=== PATIENT | female | born 1995 | race Caucasian/White ===

== ENCOUNTER 2019-12-27 20:41 | Emergency (ER) | payer OTHER, SELFPAY ==
--- NOTE | ~2019-12-27 | CT_ITS ---
EXAMINATION: CT soft tissue neck w con DATE: 12/27/2019 23:05 INDICATION: Facial swelling. TECHNIQUE: Computed tomography (CT) of the neck was performed with 75 mL Omnipaque-350 intravenous co ntrast. Automated exposure control and iterative reconstruction technique were employed. The dose-león gth product was 262.14 mGy-cm. COMPARISON: None FINDINGS: There is bilateral high internal jugular chain lymphadenopathy. For example, the right jugu lodigastric node measures 2.1 x 1.6 cm. The palatine tonsils are enlarged. The paranasal sinuses are clear. The mastoid air cells are normal. There are carious lesions of tooth 2 and tooth 15. Tooth 5 i s broken. IMPRESSION: 1. Enlarged palatine tonsils. No abscess. 2. Dental disease. 3. Mild bilateral cervical lymphadenopathy, likely reactive. Reviewed, dictated and finalized at location A.
[2019-12-27 20:43] VITALS: BP 123/90; PULSE 138; RESP 20; TEMP 37.2; O2SAT 99
--- NOTE | 2019-12-27 21:13 | ED.GENADULT ---
HPI - General Adult General Chief complaint: Unspecified Stated complaint: FEVER, FACIAL SWELLING Time Seen by Provider: 12/27/19 20:55 History of Present Illness HPI narrative: SOre throat for the past 5 days. Difficulty swallowing and talking. Associated with fever. No SOB. She tested negative for strep, but was started on amoxicillin a few days ago. Symptoms have not improved now she reports swelling around molars on the right and tender lymph nodes around the right breast. Related Data Home Medications Medication Instructions Recorded Confirmed amoxicillin 12/27/19 12/27/19 Allergies Allergy/AdvReac Type Severity Reaction Status Date / Time No Known Allergies Allergy Verified 12/27/19 20:42 Review of Systems Review of Systems: All systems reviewed & are unremarkable except as noted in HPI and below Constitutional: Constitutional: Reports chills and Reports fever(s) ENT: Reports dysphagia and Reports sore throat Cardiovascular: Cardiovascular: Denies chest pain Respiratory: Respiratory: Denies dyspnea Gastrointestinal: Gastrointestinal: Denies abdominal pain, Denies nausea and Denies vomiting Musculoskeletal: Musculoskeletal: Denies back pain Exam Const: General: healthy appearing, no acute distress and alert Orientation/consciousness: patient oriented x3 HENMT: Teeth and gingiva: abnormal tooth and associated gingiva (mild swelling around lower molars on the right.) Other: Enlarged tonsils bilaterally with exudates. uvula midline. Neck: Neck: normal visual inspection and no lymphadenopathy Chest: Chest palpation & inspection: no tenderness Resp: Effort & Inspection: normal respiratory effort Auscultation: clear to auscultation bilaterally, no rales, no rhonchi and no wheezes Cardio: Jugular venous distension: no JVD Rate: regular rate Rhythm: regular rhythm Heart sounds: no murmurs GI: Inspection: non-distended GI Palp: Yes Soft to palpation and No Tenderness to palpation present (GI) Skin: General skin exam: normal color Neuro: General: patient oriented x3 and moves all extremities Speech: normal speech Extrem: General: no edema Psych: Appearance: well kempt Affect: normal affect Course Vital Signs Vital signs: Vital Signs Temperature 37.2 C 12/27/19 20:43 Pulse Rate 138 H 12/27/19 20:43 Respiratory Rate 20 12/27/19 20:43 Blood Pressure 123/90 12/27/19 20:43 Pulse Oximetry 99 12/27/19 20:43 Temperature 36.8 C 12/28/19 00:19 Pulse Rate 102 H 12/28/19 00:19 Respiratory Rate 12 12/28/19 00:19 Blood Pressure 115/83 12/28/19 00:19 Pulse Oximetry 96 12/28/19 00:19 Medical Decision Making MDM Narrative Medical decision making narrative: 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 She is feeling better. Medical Records Medical records reviewed: Yes I reviewed the patient's medical records. Vital Signs Vital Signs: Vital Signs Temperature 37.2 C 12/27/19 20:43 Pulse Rate 138 H 12/27/19 20:43 Respiratory Rate 20 12/27/19 20:43 Blood Pressure 123/90 12/27/19 20:43 Pulse Oximetry 99 12/27/19 20:43 Temperature 36.8 C 12/28/19 00:19 Pulse Rate 102 H 12/28/19 00:19 Respiratory Rate 12 12/28/19 00:19 Blood Pressure 115/83 12/28/19 00:19 Pulse Oximetry 96 12/28/19 00:19 Lab Data Lab results reviewed: Yes I reviewed the patient's lab results. Result diagrams: 12/27/19 22:08 12/27/19 22:08 Labs: Lab Results 12/27/19 12/27/19 12/27/19 Range/Units 22:08 22:08 22:08 WBC 7.5 (4.5-10.0) K/mm3 RBC 4.67 (4.2-5.4) M/mm3 Hgb 14.2 (12.0-15.0) g/dL Hct 41.7 (37.0-47.0) % MCV 89.3 (80-100) fl MCH 30.4 (26-34) pg MCHC 34.1 (32-36) g/dl RDW 12.5 (11.5-14.5) % Plt Count 231 (150-375) k/mm3 MPV 11.2 H (7.4-10.4) fl Immature Gran % (Auto) 0.3 (0-0.5) % Neut % (Auto) 63.4 (45.5-73.1) % Lymph % (Auto) 21.7 (18.3-44.2) % [place] % (
[2019-12-27] MEDS: KETOROLAC 30 MG/ML VIAL (*BKC) IV PUSH (22:14)
[2019-12-27] MEDS: SODIUM CHLORIDE 0.9% IV 1,000 ML 999 ML IV CONT (22:14)
[2019-12-27 22:22] LABS: Basophils Percent Auto 0.4 % (0.2-1.2); Eosinophils Percent Auto 0.1 % (0-4.4); Hematocrit 41.7 % (37.0-47.0); Hemoglobin 14.2 g/dL (12.0-15.0); Immature Granulocyte Absolute 0.02 K/mm3 (0.00-0.031); Immature Granulocyte Percent A 0.3 % (0-0.5); Lymphocytes Absolute Auto 1.62 K/mm3 (0.9-3.2); Lymphocytes Percent Auto 21.7 % (18.3-44.2); Mean Corpuscular HGB Conc 34.1 g/dl (32-36); Mean Corpuscular Hemoglobin 30.4 pg (26-34); Mean Corpuscular Volume 89.3 fl (80-100); Mean Platelet Volume 11.2 fl (7.4-10.4); Monocytes Absolute Auto 1.1 K/mm3 (0.1-0.6); Monocytes Percent Auto 14.1 % (2.6-8.5); Neutrophils Absolute Auto 4.7 K/mm3 (1.3-6.7); Neutrophils Percent Auto 63.4 % (45.5-73.1); Platelet Count Result 231 k/mm3 (150-375); Red Blood Count 4.67 M/mm3 (4.2-5.4); Red Cell Distribution Width 12.5 % (11.5-14.5); White Blood Count 7.5 K/mm3 (4.5-10.0)
[2019-12-27 22:27] LABS: Blood Urea Nitrogen 10 mg/dL (7-17); Calcium 9.4 mg/dL (8.4-10.2); Carbon Dioxide 24 mmol/L (22-30); Chloride 104 mmol/L (98-107); Estimated CRCL calculation 101 ml/min; Estimated Glomerular Filt Rate > 60; Glucose 88 mg/dL (65-105); Potassium 4.3 mmol/L (3.4-5.0); Sodium 137 mmol/L (137-145)
[2019-12-27] MEDS: AMPICILLIN SODIUM/SULBACTAM 3 GM in SODIUM CHLORIDE 0.9% IV 100 ML IVPB (22:43)
[2019-12-27 22:48] LABS: Monoscreen Negative (Negative); Negative Monotest Control Negative (Negative); Positive Monotest Control Positive (Positive)
[2019-12-28 00:19] VITALS: BP 115/83; PULSE 102; RESP 12; TEMP 36.8; O2SAT 96
== END 2019-12-28 00:52 | disposition home or self-care (01) ==
PROVIDERS: Emergency Provider Emergency Medicine
DX: J02.9 Acute pharyngitis, unspecified (principal)
CPT/HCPCS: 36415; 70491; 80048; 81025; 85025; 86308; 87081; 87880; 96365; 96375; 99284; A9270; J0295; J1100; J1885; J7030; Q9967

== ENCOUNTER 2021-10-02 09:56 | Emergency (ER) | payer OTHER, SELFPAY ==
--- NOTE | ~2021-10-02 | US_ITS ---
EXAMINATION: US OB <=14 wk fetus w TV DATE: 10/02/2021 11:49 INDICATION: Pelvic pain during first trimester TECHNIQUE: Real-time pelvic transabdominal and transvaginal ultrasound was performed. COMPARISON: None. FINDINGS: The uterus measures 7.5 x 5.7 x 3.7 cm. No intrauterine gestational sac is identified. The endometrial thickness measures 9 mm. The right ovary measures 2.1 x 1.9 x 1.4 cm. The left ovary filomena sures 2.4 x 1.2 x 1.9 cm. There is normal vascular flow in the ovaries. There is no free fluid in the pelvis. IMPRESSION: 1. of unknown location. Although no intrauterine gestational sac is seen, this may be due t o early gestation. If the patient is clinically stable, recommend followup with serial beta-hCG and u ltrasound. Reviewed, dictated and finalized at location B. IMPRESSION: 1. of unknown location. Although no intrauterine gestational sac is s een, this may be due to early gestation. If the patient is clinically stable, r ecommend followup with serial beta-hCG and ultrasound.
[2021-10-02 10:04] VITALS: BP 118/80; PULSE 84; RESP 16; TEMP 36.4; O2SAT 96
[2021-10-02 11:10] LABS: Basophils Percent Auto 0.3 % (0.2-1.2); Eosinophils Absolute Auto 0.1 K/mm3 (0-0.3); Eosinophils Percent Auto 0.7 % (0-4.4); Hematocrit 42.2 % (37.0-47.0); Hemoglobin 13.9 g/dL (12.0-15.0); Immature Granulocyte Absolute 0.03 K/mm3 (0.00-0.031); Immature Granulocyte Percent A 0.3 % (0-0.5); Lymphocytes Absolute Auto 2.11 K/mm3 (0.9-3.2); Lymphocytes Percent Auto 22.2 % (18.3-44.2); Mean Corpuscular HGB Conc 32.9 g/dl (32-36); Mean Corpuscular Hemoglobin 30.4 pg (26-34); Mean Corpuscular Volume 92.3 fl (80-100); Mean Platelet Volume 10.8 fl (7.4-10.4); Monocytes Absolute Auto 0.8 K/mm3 (0.1-0.6); Monocytes Percent Auto 8.1 % (2.6-8.5); Neutrophils Absolute Auto 6.5 K/mm3 (1.3-6.7); Neutrophils Percent Auto 68.4 % (45.5-73.1); Platelet Count Result 332 k/mm3 (150-375); Red Blood Count 4.57 M/mm3 (4.2-5.4); Red Cell Distribution Width 12.5 % (11.5-14.5); White Blood Count 9.5 K/mm3 (4.5-10.0)
[2021-10-02 11:19] LABS: Add Urine Microscopic? YES; Appearance Urine Cloudy (Clear); Bacteria Urine Trace /hpf; Bilirubin Urine Negative (Negative); Blood Urine 2+ (Negative); Color Urine Red (Yellow); Glucose Urine UA Negative (Negative); Ketones Urine Negative (Negative); Leukocyte Esterase Ur 2+ LEU/UL (Negative); Nitrate Urine Negative (Negative); Protein Urine 2+ mg/dL (Negative); RBC Urine 21-50 /hpf (0-2); Squamous Epithelial Cell Urine Moderate /hpf (Few); Urobilinogen Urine Negative mg/dL (<2.0); WBC Urine 31-50 /hpf
[2021-10-02 11:26] LABS: Specific Grav Ur 1.002 (1.001-1.035)
[2021-10-02 11:33] LABS: Beta HCG Quantitative 4.36 mIU/ML
--- NOTE | 2021-10-02 11:37 | PC.NURSE ---
pt. to ct
[2021-10-02 11:47] VITALS: BP 123/67; PULSE 61; RESP 14; O2SAT 100
--- NOTE | 2021-10-02 12:57 | ED.FEMALEGU ---
HPI - Female Genitourinary General Chief complaint: Vaginal Bleeding Stated complaint: vag bld, 5 weeks Time Seen by Provider: 10/02/21 11:17 Source: patient History of Present Illness HPI Narrative: Patient presents with vaginal bleeding. Patient is G2, P1 approximately 5 weeks by LMP. She had some spotting yesterday with some mild cramping today she was passing large blood clots and was having a lot of pelvic pain. She was concerned so she came to the ER for evaluation. Denies any lightheadedness or dizziness denies any chest pain or shortness of breath denies any nausea or vomiting Related Data Home Medications Medication Instructions Recorded Confirmed amoxicillin 12/27/19 12/27/19 Allergies Allergy/AdvReac Type Severity Reaction Status Date / Time No Known Allergies Allergy Verified 10/02/21 11:50 Review of Systems Review of Systems: CONSTITUTIONAL: Denies fever, chills, or sweats. EYES: Denies visual changes, redness, or discharge. ENT: Denies rhinorrhea, congestion, sore throat, or otalgia. CARDIOVASCULAR: Denies chest pain, palpitations, or edema. RESPIRATORY: Denies cough or dyspnea. GASTROINTESTINAL: Denies nausea, vomiting, or diarrhea. GENITOURINARY: Denies dysuria or hematuria. SKIN: Denies rash or itching. MUSCULOSKELETAL: Denies back pain, joint pain, or myalgia. NEUROLOGIC: Denies headache, numbness, dizziness, or weakness. PSYCHIATRIC: Denies anxiety or depression. All systems reviewed & are unremarkable except as noted in HPI and below Exam Narrative: GENERAL: Well-appearing, well-nourished, and in no acute distress. HEAD: Normocephalic, atraumatic. EYES: PERRLA and EOMI. ENT: Nares clear, no rhinorrhea or epistaxis. Mucous membranes moist. NECK: Supple. No masses. No JVD ABDOMEN: Soft, nontender, nondistended, normal active bowel sounds. EXTREMITIES: Normal range of motion. No edema. SKIN: Warm, dry, no rash. NEURO: No focal deficits. Alert and oriented x3. PSYCH: Normal mood and affect. Course Reevaluation(s) Reevaluation #1: Patient resting company results plan reviewed with patient. Patient comfortable outpatient plan. Date: 10/02/21 Time: 12:58 Vital Signs Vital signs: Vital Signs Temperature 36.4 C 10/02/21 10:04 Pulse Rate 84 10/02/21 10:04 Respiratory Rate 16 10/02/21 10:04 Blood Pressure 118/80 10/02/21 10:04 Pulse Oximetry 96 10/02/21 10:04 Temperature 36.4 C 10/02/21 10:04 Pulse Rate 88 10/02/21 13:10 Respiratory Rate 16 10/02/21 13:10 Blood Pressure 112/76 10/02/21 13:10 Pulse Oximetry 99 10/02/21 13:10 MDM - Female Genitourinary MDM Narrative Medical decision making narrative: H&P as above, vss, pt looks clinically well, exam reassuring labs with Rh+ and low hCG, img with of indeterminate location, additional labs/img considered, symptomatic relief available as needed, on reevaluation pt continues to looks clinically well. Suspect miscarriage, there is local concern for ectopic , hemorrhage severe sepsis. plan to tx/monitor as op w/ pcm f/u findings/plan discussed with pt, pt agree/comfortable with plan, return precautions given Lab Data Result diagrams: 10/02/21 10:56 Labs: Lab Results 10/02/21 10/02/21 10/02/21 Range/Units 10:56 10:56 10:56 WBC 9.5 (4.5-10.0) K/mm3 RBC 4.57 (4.2-5.4) M/mm3 Hgb 13.9 (12.0-15.0) g/dL Hct 42.2 (37.0-47.0) % MCV 92.3 (80-100) fl MCH 30.4 (26-34) pg MCHC 32.9 (32-36) g/dl RDW 12.5 (11.5-14.5) % Plt Count 332 (150-375) k/mm3 MPV 10.8 H (7.4-10.4) fl Immature Gran % (Auto) 0.3 (0-0.5) % Neut % (Auto) 68.4 (45.5-73.1) % Lymph % (Auto) 22.2 (18.3-44.2) % Door % (Auto) 8.1 (2.6-8.5) % Eos % (Auto) 0.7 (0-4.4) % Baso % (Auto) 0.3 (0.2-1.2) % Lymph # (Auto) 2.11 (0.9-3.2) K/mm3 Door # (Auto) 0.8 H (0.1-0.6) K/mm3 Eos # (Auto) 0.1 (0-0.3) K/mm3 Baso # (Aut
[2021-10-02 13:10] VITALS: BP 112/76; PULSE 88; RESP 16; O2SAT 99
== END 2021-10-02 13:10 | disposition home or self-care (01) ==
PROVIDERS: Emergency Provider Emergency Medicine
DX: O03.9 Complete or unspecified spontaneous abortion without complication (principal); N39.0 Urinary tract infection, site not specified
CPT/HCPCS: 36415; 76801; 76817; 81001; 84702; 85025; 85461; 87086; 99284

== ENCOUNTER 2021-12-02 16:56 | Emergency (ER) | payer OTHER, SELFPAY ==
--- NOTE | ~2021-12-02 | CT_ITS ---
EXAMINATION: CT brain wo con DATE: 12/02/2021 19:00 INDICATION: seizure-like activity tonight . TECHNIQUE: Computed tomography (CT) of the head was performed without intravenous contrast. The mA wa s adjusted according to patient size. Iterative reconstruction technique was employed. The dose-lengt h product was 529.67 mGy-cm. COMPARISON: 01/16/2018 FINDINGS: No acute intracranial hemorrhage or extra-axial fluid collection. No hydrocephalus, mass, or herniation. No acute ischemic infarct. Unremarkable dural venous sinus attenuation. No acute osseous abnormality. The aerated spaces are clear. IMPRESSION: No acute intracranial process. Reviewed, dictated and finalized at location K.
[2021-12-02 16:56] VITALS: BP 118/64; PULSE 87; RESP 16; TEMP 36.7; O2SAT 98
--- NOTE | 2021-12-02 17:04 | ED.SEIZURE ---
HPI - Seizure General Chief Complaint: Seizure Stated Complaint: seizure Time Seen by Provider: 12/02/21 17:04 Source: patient History of Present Illness HPI Narrative: 26-year-old female with a history of stress-induced seizures, anxiety, with miscarriage 6 weeks ago, recently diagnosed pelvic infection on doxycycline presents to the ER with -- generalized shaking of the body. this happened at work and her colleagues lowered her to the floor. The patient was very stressed out started shaking. She was able to hear people asking her questions but she was unable to answer these questions. According to the people were present the seizures seizure lasted approximately 1 minute. while at work the patient stated that she was going to have a seizure. She was then lowered to the floor when she the generalized shaking for 1 minute which resolved spontaneously. Post shaking the patient did not have any headache or focal neuro deficit. -- Her stress started after she noted a 3 cm swelling over the cervix. -- dyspareunia for the past November 8 months and this has gotten worse over the past 10 days. -- Patient was recently diagnosed to have pelvic inflammation and started on doxycycline. She continued to have symptoms for which her doxycycline was continued for a 2nd round. complaint: possible seizure Onset (ago): minute(s) ( 45 minutes ago) Description of Episode: other ( generalized shaking without any loss of consciousness) Duration of episode: 1 -: minutes(s) Witnessed: Yes - by Bystander Trauma: No Seizure History: Yes Place: work Possible Precipitating Event: other ( Patient got stressed out because of a growth in her cervix) Associated symptoms: denies other symptoms Treatments prior to arrival: none Related Data Allergies Allergy/AdvReac Type Severity Reaction Status Date / Time No Known Allergies Allergy Verified 10/23/21 15:28 Review of Systems Review of Systems: All systems reviewed & are unremarkable except as noted in HPI and below Constitutional: Constitutional: Reports as per HPI, Reports no additional constitutional complaints and Reports weakness Eyes: Eyes: Reports as per HPI and Reports no additional eye complaints ENT: Reports system reviewed and no additional complaints, except as documented and Reports as per HPI Cardiovascular: Cardiovascular: Reports as per HPI and Reports no additional cardiovascular complaints Respiratory: Respiratory: Reports as per HPI and Reports no additional respiratory complaints Gastrointestinal: Gastrointestinal: Reports as per HPI and Reports no additional gastrointestinal complaints Genitourinary: Genitourinary: Reports genital lesions Comments: patient stated that she had a swelling on her cervix she is currently on doxycycline for pelvic inflammation Musculoskeletal: Musculoskeletal: Reports no additional musculoskeletal complaints and Reports muscle cramps Integumentary/Breasts: Skin/Breast: Reports system reviewed and no additional complaints, except as docu and Reports as per HPI Neurologic: Reports system reviewed and no additional complaints, except as documented and Reports as per HPI Psychiatric: Psychiatric: Reports no additional psychiatric complaints and Reports as per HPI Endocrine: Endocrine: Reports no additional endocrine complaints and Reports as per HPI Hematologic/Lymphatic: Hematologic/Lymphatic: Reports no additional hematologic/lymphatic complaints and Reports as per HPI Allergic/Immunologic: Allergic/Immunologic: Reports no additional allergic/immunologic complaints and Reports as per HPI PMFSH Past Medical History Medical History Encounter for biopsy 2011 soft tissue of back--benign Encounter for IUD insertion (07/15/20) Encounter for IUD removal (04/07/21) Manic depression hypertension Seizure Family History Family History (Reviewed 12/02/21 @ 17:31 by Brandan Gregorio
--- NOTE | 2021-12-02 17:19 | ECG_ITS ---
Measurements Intervals [place] Rate: 94 P: 44 MS: 130 QRS: 70 QRSD: 93 T: 50 QT: 345 QTc: 431 Interpretive Statements SINUS RHYTHM WITH SINUS ARRHYTHMIA BASELINE WANDER- V4 NORMAL ECG Electronically Signed On 12-03-2021 8:00:35 CDT by Franck White D.O.
[2021-12-02 17:58] LABS: Basophils Absolute Auto 0.04 K/mm3 (0.00-0.10); Basophils Percent Auto 0.6 % (0.0-1.0); Eosinophils Absolute Auto 0.09 K/mm3 (0.02-0.50); Eosinophils Percent Auto 1.3 % (1.0-6.0); Hematocrit 39.1 % (35.0-49.0); Hemoglobin 13.1 g/dL (12.0-15.0); Immature Granulocyte Absolute 0.01 K/mm3 (0.00-0.00); Immature Granulocyte Percent A 0.1 % (0.0-0.0); Lymphocytes Absolute Auto 2.17 K/mm3 (1.10-4.50); Lymphocytes Percent Auto 31.8 % (18.0-42.0); Mean Corpuscular HGB Conc 33.5 g/dL (32.0-36.0); Mean Corpuscular Hemoglobin 30.6 pg (27.0-31.0); Mean Corpuscular Volume 91.4 fL (78.0-102.0); Mean Platelet Volume 11.4 fl (9.2-11.8); Monocytes Absolute Auto 0.74 K/mm3 (0.10-0.90); Monocytes Percent Auto 10.9 % (2.0-11.0); Neutrophils Absolute Auto 3.8 K/mm3 (1.7-7.2); Neutrophils Percent Auto 55.3 % (50.0-70.0); Platelet Count Result 292 K/mm3 (150-420); Red Blood Count 4.28 M/mm3 (4.20-5.40); White Blood Count 6.8 K/mm3 (4.8-10.8)
[2021-12-02 18:07] LABS: Prothrombin Time 10.9 Seconds (9.50-12.10)
[2021-12-02 18:10] LABS: Add Urine Microscopic? NO; Appearance Urine Clear (Clear); Bilirubin Urine Negative (Negative); Blood Urine Negative (Negative); Color Urine Light Yellow (Yellow); Glucose Urine UA Negative (Negative); Ketones Urine Negative (Negative); Leukocyte Esterase Ur Negative (Negative); Nitrate Urine Negative (Negative); Protein Urine Negative (Negative); Urobilinogen Urine 0.2 mg/dL (0.2-1.0)
[2021-12-02 18:14] LABS: Pregnancy On Board Control Positive; Urine Pregnancy Test Negative
[2021-12-02 18:19] LABS: Alanine Aminotransferase 16 U/L (14-59); Albumin Level 4.1 g/dL (3.4-5.0); Alkaline Phosphatase 68 U/L (46-116); Anion Gap 9 mmol/L (8-16); Aspartate Amino Transferase 14 U/L (15-37); Bilirubin,Total 0.4 mg/dL (0.00-1.00); Blood Urea Nitrogen 9 mg/dL (7-18); Calcium 8.9 mg/dL (8.5-10.1); Carbon Dioxide 25 mmol/L (21-32); Chloride 103 mmol/L (98-108); Estimated CRCL calculation 80 ml/min; Estimated Glomerular Filt Rate > 60; Glucose 93 mg/dL (70-99); Osmolality Calculated 282 mOsm/kg (285-295); Potassium 3.6 mmol/L (3.5-5.1); Sodium 137 mmol/L (136-145); Total Protein 7.9 g/dL (6.4-8.2)
[2021-12-02 18:20] LABS: Amphetamine Screen Urine Negative (Negative); Barbiturate Screen Urine Negative (Negative); Benzodiazepines Screen Urine Negative (Negative); Cannabinoid Screen Urine Negative (Negative); Cocaine Screen Urine Negative (Negative); Methadone Screen Urine Negative (Negative); Opiate Screen Urine Negative (Negative); Phencyclidine Screen Urine Negative (Negative)
[2021-12-02 18:23] LABS: Lipase 123 U/L (73-393); Troponin I 4.2 ng/L (0.00-60.4)
[2021-12-02 19:00] VITALS: BP 121/70; PULSE 68; RESP 20; TEMP 37; O2SAT 96
[2021-12-02 19:29] VITALS: BP 120/72; PULSE 70; RESP 19; TEMP 36.6; O2SAT 98
== END 2021-12-02 19:35 | disposition home or self-care (01) ==
PROVIDERS: Emergency Provider Internal Medicine Critical Care Medicine
DX: R56.9 Unspecified convulsions (principal); F41.9 Anxiety disorder, unspecified; F33.9 Major depressive disorder, recurrent, unspecified; F17.290 Nicotine dependence, other tobacco product, uncomplicated
CPT/HCPCS: 36415; 70450; 80053; 80307; 81003; 81025; 83605; 83690; 84484; 85025; 85610; 93005; 99284

== ENCOUNTER 2021-12-05 00:20 | Emergency (ER) | payer OTHER, SELFPAY ==
--- NOTE | ~2021-12-05 | CT_ITS ---
EXAMINATION: CT abdomen pelvis wo con DATE: 12/05/2021 02:23 INDICATION: Pelvic pain. Abdominal cramping. TECHNIQUE: Computed tomography (CT) of the abdomen and pelvis was performed without intravenous contr ast. Automated exposure control and iterative reconstruction technique were employed. The dose-length product was 181.42 mGy-cm. COMPARISON: CT abdomen and pelvis 05/30/2015 FINDINGS: The visualized portions of the lung bases are clear without pneumonia or pleural effusion. The heart size is normal. No pericardial effusion. The liver is normal. The gallbladder is contracted . The spleen, pancreas, adrenal glands, and kidneys are normal. There is gas in the bladder lumen. Th ere are no dilated loops of bowel. The appendix is not visualized. There are no pathologically enlarg ed lymph nodes. There is no free intraperitoneal fluid. There is mild lumbar spondylosis. IMPRESSION: 1. Gas in the bladder lumen, which may be secondary to recent instrumentation. Reviewed, dictated and finalized at location A.
[2021-12-05 00:21] VITALS: BP 112/72; PULSE 88; RESP 18; TEMP 36.6; O2SAT 99
[2021-12-05 01:27] LABS: Basophils Percent Auto 0.5 % (0.2-1.2); Eosinophils Absolute Auto 0.2 K/mm3 (0-0.3); Hematocrit 37.7 % (37.0-47.0); Hemoglobin 12.7 g/dL (12.0-15.0); Immature Granulocyte Absolute 0.01 K/mm3 (0.00-0.031); Immature Granulocyte Percent A 0.1 % (0-0.5); Lymphocytes Absolute Auto 3.54 K/mm3 (0.9-3.2); Lymphocytes Percent Auto 44.1 % (18.3-44.2); Mean Corpuscular HGB Conc 33.7 g/dl (32-36); Mean Corpuscular Hemoglobin 30.8 pg (26-34); Mean Corpuscular Volume 91.5 fl (80-100); Mean Platelet Volume 11.6 fl (7.4-10.4); Monocytes Percent Auto 12.5 % (2.6-8.5); Neutrophils Absolute Auto 3.3 K/mm3 (1.3-6.7); Neutrophils Percent Auto 40.8 % (45.5-73.1); Platelet Count Result 340 k/mm3 (150-375); Red Blood Count 4.12 M/mm3 (4.2-5.4); Red Cell Distribution Width 12.4 % (11.5-14.5)
[2021-12-05 01:33] LABS: Appearance Urine Slightly Cloudy (Clear); Bilirubin Urine Negative (Negative); Blood Urine Negative (Negative); Glucose Urine UA Negative (Negative); Ketones Urine Negative (Negative); Leukocyte Esterase Ur Negative LEU/UL (Negative); Nitrate Urine Negative (Negative); Protein Urine Negative (Negative); pH Urine 7.5 (5.0-9.0)
[2021-12-05 01:45] LABS: Add Urine Microscopic? NO; Color Urine Light Yellow (Yellow)
[2021-12-05] MEDS: KETOROLAC 30 MG/ML VIAL (*BKC) IM (01:56)
[2021-12-05 02:06] LABS: Amorphous Sediment Urine Few; Bacteria Urine Trace /hpf
--- NOTE | 2021-12-05 02:15 | ED.ABDPAIN ---
HPI - Abdominal Pain General Chief Complaint: Abdominal Pain Stated Complaint: pelvic pain Time Seen by Provider: 12/05/21 00:50 History of Present Illness HPI narrative: Patient is a 26-year-old female here for evaluation of abdominal cramping for the past day. Patient states the pain is severe in nature, and came on after sex today. The pain is present in her lower abdomen and does not radiate. She has not tried any medicaiton for her pain. Denies nausea, vomiting, diarrhea, constipation, fevers, chills. Does report some pain with defecation. 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 Has been treated for pelvic inflammation with 2 courses of doxycycline with only transient relief. Has had negative US in September, per chart review next step is D&C. Related Data Allergies Allergy/AdvReac Type Severity Reaction Status Date / Time No Known Allergies Allergy Verified 12/05/21 00:23 Review of Systems Review of Systems: Gen.: Denies fevers or chills Eyes: Denies eye pain or visual change ENT: Denies congestion Respiratory: Denies shortness of breath or cough CV: Denies chest pain or palpitations GI: Reports abdominal pain. : Reports dyspareunia. denies burning, urgency, frequency or hematuria Musculoskeletal: Denies back pain or muscle pain Neuro: Denies numbness, tingling, weakness or focal weakness Skin: Denies rash Except as documented, all other systems reviewed and negative All systems reviewed & are unremarkable except as noted in HPI and below PMFSH Past Medical History Medical History Encounter for biopsy 2011 soft tissue of back--benign Encounter for IUD insertion (07/15/20) Encounter for IUD removal (04/07/21) Manic depression hypertension Seizure Family History Family History Mother Malignant tumor of cervix Other Malignant tumor of cervix maternal aunt Social History Social History Smoking status: Current every day smoker Tobacco type: e-cigarettes/vaping Alcohol intake: current Alcohol use details: 1 x month Substance use: never Substance use type: does not use Additional living arrangements comments: 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 Head: normocephalic and atraumatic. EYES: PERRLA/EOMI, conjunctivae clear NOSE: No nasal drainage EARS: External ear normal in appearance THROAT: Oropharynx is clear. Mucous membranes are moist. NECK: Supple. No adenopathy, no masses. RESPIRATORY: Airway patent, respirations nonlabored. Clear to auscultation bilaterally, no rales, rhonchi, wheezing. CARDIOVASCULAR: Regular rate and rhythm without murmurs, rubs, or gallops. ABDOMINAL: Mild tenderness in suprapubic region. Normoactive bowel sounds. Soft, nondistended. No rebound tenderness or guarding. MUSCULOSKELETAL: Extremities are warm and well-perfused. Moves all extremities well. No edema. NEURO: Normal speech. No focal neurologic deficits. SKIN: Skin is warm and dry. No rashes. PSYCHIATRIC: Normal affect/mood. Course Vital Signs Vital signs: Vital Signs Temperature 97.9 F 12/05/21 00:21 Pulse Rate 88 12/05/21 00:21 Respiratory Rate 18 12/05/21 00:21 Blood Pressure 112/72 12/05/21 00:21 Pulse Oximetry 99 12/05/21 00:21 Temperature 97.9 F 12/05/21 00:21 Pulse Rate 88 12/05/21 00:21 Respiratory Rate 18 12/05/21 00:21 Blood Pressure 112/72 12/05/21 00:21 Pulse Oximetry 99 12/05/21 00:21 MDM - Abdominal Pain MDM Narrative Medical decision making abdi
[2021-12-05 02:19] LABS: Alanine Aminotransferase 12 U/L (6-35); Albumin Level 4.2 g/dL (3.5-5.1); Alkaline Phosphatase 55 U/L (38-126); Anion Gap 7 mmol/L (8-16); Aspartate Amino Transferase 21 U/L (14-36); Bilirubin,Total 0.4 mg/dL (0.2-1.3); Blood Urea Nitrogen 12 mg/dL (7-17); Calcium 8.8 mg/dL (8.4-10.2); Carbon Dioxide 24 mmol/L (22-30); Chloride 105 mmol/L (98-107); Estimated CRCL calculation 83 ml/min; Estimated Glomerular Filt Rate > 60; Glucose 96 mg/dL (65-110); Lipase 150 U/L (23-300); Potassium 3.9 mmol/L (3.4-5.0); Sodium 136 mmol/L (137-145)
[2021-12-05 02:55] VITALS: BP 120/77; PULSE 72; RESP 18; O2SAT 98
[2021-12-05 02:56] VITALS: BP 92/57; PULSE 69; RESP 18; O2SAT 100
== END 2021-12-05 02:58 | disposition home or self-care (01) ==
PROVIDERS: Emergency Provider Emergency Medicine
DX: N30.00 Acute cystitis without hematuria (principal); F17.290 Nicotine dependence, other tobacco product, uncomplicated
CPT/HCPCS: 36415; 74176; 80053; 81003; 81025; 83690; 85025; 87086; 96372; 99284; J1885

== ENCOUNTER 2022-02-05 17:01 | Outpatient (CLI) | payer OTHER, SELFPAY ==
[2022-02-05 18:18] LABS: Hepatitis B Surface Antigen Negative (Negative); Thyroid Stimulating Hormone Reflex 0.484 uIU/mL (0.465-4.68)
[2022-02-05 18:24] LABS: HAV RESULT Negative (Negative); Hepatitis B Core IgM Result Negative (Negative)
[2022-02-05 18:25] LABS: HIV 1/2 Ab P24 Ag Result Negative (Negative)
[2022-02-05 18:35] LABS: Hepatitis C Virus Antibody Negative (Negative)
[2022-02-06 05:58] LABS: Rapid Plasma Reagin Non-Reactive (NonReactive)
[2022-02-07 20:21] LABS: Progesterone 12.6 ng/mL (***)
== END 2022-02-05 17:02 | disposition home or self-care (01) ==
LOC: ANHLAB 17:05
PROVIDERS: Visit Provider Obstetrics & Gynecology
DX: N92.6 Irregular menstruation, unspecified (principal); Z11.3 Encounter for screening for infections with a predominantly sexual mode of transmission
CPT/HCPCS: 36415; 80074; 84144; 84443; 86592; 86695; 86696; 86703; G0432

== ENCOUNTER 2022-02-10 01:27 | Emergency (ER) | payer OTHER, SELFPAY ==
[2022-02-10 01:31] VITALS: BP 123/57; PULSE 83; RESP 16; TEMP 36.3; O2SAT 100
--- NOTE | 2022-02-10 01:39 | PC.NURSE ---
ED ENERGY ANALYST Keen seeing pt in triage Room 1.
--- NOTE | 2022-02-10 01:46 | ED.SKABFB ---
HPI - Skin/Abscess/Foreign Bdy General Chief complaint: Skin/Abscess/Foreign Body Stated complaint: itchy skin s/p sunburn Time Seen by Provider: 02/10/22 01:31 History of Present Illness HPI narrative: 26-year-old female presents the emergency room for evaluation of sunburn to her chest and abdomen and back. Patient states the burn is itching and she cannot get any relief from it. Patient has tried multiple [id number] preparations including Benadryl with no relief. Related Data Allergies Allergy/AdvReac Type Severity Reaction Status Date / Time No Known Allergies Allergy Verified 02/10/22 01:35 Review of Systems Review of Systems: CONSTITUTIONAL: Denies fever, chills, or sweats. EYES: Denies visual changes, redness, or discharge. ENT: Denies rhinorrhea, congestion, sore throat, or otalgia. CARDIOVASCULAR: Denies chest pain, palpitations, or edema. RESPIRATORY: Denies cough or dyspnea. GASTROINTESTINAL: Denies abdominal pain, nausea, vomiting, or diarrhea. GENITOURINARY: Denies dysuria or hematuria. SKIN: Reports sunburn to torso MUSCULOSKELETAL: Denies back pain, joint pain, or myalgia. NEUROLOGIC: Denies headache, numbness, dizziness, or weakness. PSYCHIATRIC: Denies anxiety or depression. [facility] Past Medical History Medical History Encounter for biopsy 2011 soft tissue of back--benign Encounter for IUD insertion (07/15/20) Encounter for IUD removal (04/07/21) Encounter for screening examination for sexually transmitted disease HSV-1 infection hx Manic depression hypertension Seizure Family History Family History Mother Malignant tumor of cervix Other Malignant tumor of cervix maternal aunt Social History Social History Smoking status: Current every day smoker Tobacco type: e-cigarettes/vaping Alcohol intake: current Alcohol use details: 1 x month Substance use: never Substance use type: does not use Additional living arrangements comments: 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 HEAD: Normocephalic, atraumatic. EYES: Conjunctivae normal, PERRLA and EOMI. CHEST: Clear to auscultation. No respiratory distress. No wheezes rales or rhonchi. No tenderness. HEART: Regular rate and rhythm. No murmur heard. Normal peripheral pulses. SKIN: Superficial raman noted to abdomen, chest, neck and back NEURO: No focal deficits. Alert and oriented x3. MAEW. CN's II-XI intact bilaterally, normal gait PSYCH: Cooperative. Normal mood and affect. Course Vital Signs Vital signs: Vital Signs Temperature 36.3 C L 02/10/22 01:31 Pulse Rate 83 02/10/22 01:31 Respiratory Rate 16 02/10/22 01:31 Blood Pressure 123/57 L 02/10/22 01:31 Pulse Oximetry 100 02/10/22 01:31 Oxygen Delivery Room Air 02/10/22 01:31 Temperature 36.3 C L 02/10/22 01:31 Pulse Rate 83 02/10/22 01:31 Respiratory Rate 16 02/10/22 01:31 Blood Pressure 123/57 L 02/10/22 01:31 Pulse Oximetry 100 02/10/22 01:31 Oxygen Delivery Room Air 02/10/22 01:31 Discharge Plan Discharge Clinical Impression: 1st degree sunburn Patient Disposition: Home, Self-Care Condition: Stable Instructions: Antibiotic Form, Sunburn (ED) Prescriptions: New white petrolatum-cocoa butter Ointment 1 ea topical TID Qty: 212 0RF Follow-up/Referrals: PHYSICIAN,TROLLEY OPERATOR [Primary Care Provider] - Time of Disposition: 01:45
== END 2022-02-10 01:51 | disposition home or self-care (01) ==
LOC: ANHED 01:46
PROVIDERS: Emergency Provider Nurse Practitioner Family
DX: L55.0 Sunburn of first degree (principal); F17.290 Nicotine dependence, other tobacco product, uncomplicated
CPT/HCPCS: 99283

== ENCOUNTER 2022-02-23 00:18 | Emergency (ER) | payer OTHER, SELFPAY ==
[2022-02-23 00:20] VITALS: BP 121/80; PULSE 90; RESP 20; TEMP 36.4; O2SAT 99
--- NOTE | 2022-02-23 00:34 | ECG_ITS ---
Measurements Intervals [place] Rate: 87 P: 41 MI: 124 QRS: 68 QRSD: 83 T: 54 QT: 356 QTc: 429 Interpretive Statements SINUS RHYTHM NORMAL ECG COMPARED TO ECG 12/02/2021 17:28:34 NO SIGNIFICANT CHANGES Electronically Signed On 02-23-2022 10:28:17 CDT by Gray Vázquez M.D.
--- NOTE | 2022-02-23 00:43 | ED.ANXIETY ---
HPI - Anxiety General Chief Complaint: Anxiety Stated Complaint: SOB/chest pain Source: patient and family Mode of arrival: ambulatory History of Present Illness HPI narrative: this is a 26-year-old female with history of anxiety presents this morning with some racing heart feels anxious with some chest tightness, her symptoms have improved since being here with no nausea or vomiting the patient does vape. There is no nausea or vomiting no shortness of breath no diaphoresis no history of heart disease in family. MD complaint: anxiety and heart racing Onset (ago): hour(s) Symptoms: chest pain Severity: mild Related Data Allergies Allergy/AdvReac Type Severity Reaction Status Date / Time No Known Allergies Allergy Verified 02/10/22 01:35 PMFSH Past Medical History Medical History Encounter for biopsy 2011 soft tissue of back--benign Encounter for IUD insertion (07/15/20) Encounter for IUD removal (04/07/21) Encounter for screening examination for sexually transmitted disease HSV-1 infection hx Manic depression hypertension Seizure Family History Family History Mother Malignant tumor of cervix Other Malignant tumor of cervix maternal aunt Social History Social History Smoking status: Current every day smoker Tobacco type: e-cigarettes/vaping Alcohol intake: current Alcohol use details: 1 x month Substance use: never Substance use type: does not use Additional living arrangements comments: 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 Gender identity (if verbalized by the patient): Female Sexual Orientation (if Verbalized by the Patient): Bisexual Exam Const: General: healthy appearing Nutritional Appearance: well nourished Limitations: no limitations HENMT: Head: normal to inspection General nose exam: Normal external nose present Face and sinus: normal facial exam Mouth: Yes Normal oral and palatal mucosa present Eyes: Conjunctivae: conjunctivae normal Pupils: Equal, round and reactive pupils present EOM: EOMs intact bilaterally Direct Ophthalmoscopy: no photophobia Neck: Neck: normal visual inspection Chest: Chest palpation & inspection: normal inspection of the chest Resp: Effort & Inspection: normal respiratory effort Auscultation: clear to auscultation bilaterally Cardio: Rate: tachycardic Rhythm: regular rhythm GI: GI Palp: Yes Soft to palpation Auscultation: normal bowel sounds Urinary Catheter: Urinary Catheter: patent and draining Back/Spine/Pelvis: Back: no CVA tenderness Skin: General skin exam: normal color Rashes: no rashes Wounds: no wounds Neuro: General: patient oriented x3 and moves all extremities Speech: normal speech Extrem: General: normal to inspection Psych: Mental Status: mental status grossly normal Affect: Anxious affect present Course Course Emergency Course: Symptoms have improved, the patient declined any anti is a medication, she fears that this will exacerbate her anxiety EKG shows normal sinus rhythm and advised follow up with and establish care with a primary care physician. Vital Signs Vital signs: Vital Signs Temperature 36.4 C 02/23/22 00:20 Pulse Rate 90 02/23/22 00:20 Respiratory Rate 20 02/23/22 00:20 Blood Pressure 121/80 02/23/22 00:20 Pulse Oximetry 99 02/23/22 00:20 Oxygen Delivery Room Air 02/23/22 00:20 Temperature 36.4 C 02/23/22 00:20 Pulse Rate 90 02/23/22 00:20 Respiratory Rate 20 02/23/22 00:20 Blood Pressure 121/80 02/23/22 00:20 Pulse Oximetry 99 02/23/22 00:20 Oxygen Delivery Room Air 02/23/22 00:20 Critical Care Time Critical Care Time Critical Care Time: No Discharge Plan Discharge Clinical Impression: Acute anxiety Patient Disposition: Home,
[2022-02-23 00:56] VITALS: BP 122/74; PULSE 88; RESP 20; TEMP 36.4; O2SAT 99
== END 2022-02-23 01:04 | disposition home or self-care (01) ==
PROVIDERS: Emergency Provider Emergency Medicine
DX: F41.9 Anxiety disorder, unspecified (principal)
CPT/HCPCS: 93005; 99283

== ENCOUNTER 2022-03-01 11:46 | Outpatient (CLI) | payer OTHER, SELFPAY ==
[2022-03-01 12:09] LABS: Hematocrit 39.6 % (35.0-49.0); Hemoglobin 13.3 g/dL (12.0-15.0); Mean Corpuscular HGB Conc 33.6 g/dL (32.0-36.0); Mean Corpuscular Hemoglobin 30.6 pg (27.0-31.0); Mean Platelet Volume 11.4 fl (9.2-11.8); Platelet Count Result 290 K/mm3 (150-420); Red Blood Count 4.35 M/mm3 (4.20-5.40); Red Cell Distribution Width 11.9 % (11.6-14.4); White Blood Count 6.7 K/mm3 (4.8-10.8)
[2022-03-01 12:21] LABS: Alanine Aminotransferase 24 U/L (14-59); Albumin Level 4.4 g/dL (3.4-5.0); Alkaline Phosphatase 72 U/L (46-116); Anion Gap 6 mmol/L (8-16); Aspartate Amino Transferase 12 U/L (15-37); Bilirubin,Total 0.5 mg/dL (0.00-1.00); Blood Urea Nitrogen 6 mg/dL (7-18); Calcium 8.8 mg/dL (8.5-10.1); Carbon Dioxide 28 mmol/L (21-32); Chloride 104 mmol/L (98-108); Estimated Glomerular Filt Rate > 60; Potassium 3.8 mmol/L (3.5-5.1); Sodium 138 mmol/L (136-145); Total Protein 8.1 g/dL (6.4-8.2)
[2022-03-01 12:44] LABS: Glucose 93 mg/dL (70-99); Osmolality Calculated 283 mOsm/kg (285-295)
[2022-03-01 12:45] LABS: CRP < 0.2 mg/dL (0.0-0.9)
[2022-03-01 12:46] LABS: Free T4 Free Thyroxine Reflex 0.98 ng/dL (0.76-1.46); Thyroid Stimulating Hormone Reflex 0.24 u/IU/mL (0.36-3.74)
[2022-03-01 12:53] LABS: Rheumatoid Factor Screen Negative (Negative)
[2022-03-06 17:18] LABS: ANA Cascade Screen Negative (Negative)
== END 2022-03-01 11:47 | disposition home or self-care (01) ==
LOC: CHSLAB 11:48
PROVIDERS: PCP Family Medicine; Visit Provider Family Medicine
DX: R00.2 Palpitations (principal); R53.83 Other fatigue; E11.9 Type 2 diabetes mellitus without complications
CPT/HCPCS: 36415; 80053; 83735; 84439; 84443; 85027; 86038; 86140; 86430

== ENCOUNTER 2022-06-04 06:37 | Emergency (ER) | payer OTHER, SELFPAY ==
--- NOTE | ~2022-06-04 | US_ITS ---
EXAMINATION: US OB <=14 wk fetus w TV DATE: 06/04/2022 08:43 INDICATION: Vaginal bleeding. Positive home test. TECHNIQUE: Real-time transabdominal and transvaginal obstetric ultrasound. FINDINGS: Ultrasound dated 02/09/2022 The uterus measures 8.1 x 4.3 x 5.1 cm. There is mild endometrial thickening measuring 1.1 cm, althou gh no intrauterine is identified. No evidence for gestational sac. Right ovary measures 3.1 x 1.8 x 1.6 cm. Left ovary measures 2.8 x 1.2 x 1.4 cm. There is normal vasc ular flow in both ovaries. No ovarian or adnexal mass.. There is free fluid in the pelvis. IMPRESSION: 1. Mild endometrial prominence measuring 11 mm. No evidence for intrauterine . Differential diagnosis includes very early IUP, failed and ectopic . Recommend follow-up with s erial quantitative beta-hCG levels and ultrasound as clinically indicated. Reviewed, dictated and finalized at location B. 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 Mild endometrial prominence measuring 11 mm. No evidence for intrauterine pr egnancy. Differential diagnosis includes very early IUP, failed and e ctopic . Recommend follow-up with serial quantitative beta-hCG levels and ultrasound as clinically indicated.
[2022-06-04 06:47] VITALS: BP 111/73; PULSE 89; RESP 16; TEMP 36.2; O2SAT 100
--- NOTE | 2022-06-04 07:03 | ED.PREGNANCY ---
HPI - General Chief complaint: Vaginal Bleeding Stated complaint: 7 weeks w vaginal bleeding & cramping Time Seen by Provider: 06/04/22 07:00 History of Present Illness HPI Narrative: 26-year-old female presenting with vaginal bleeding and cramping, last menstrual period 7 weeks ago, she did take multiple test at home that were positive. She is endorsing a small amount of blood. Has not taken anything for pain yet. Has had a recent miscarriage in the months ago. Related Data Home Medications Medication Instructions Recorded Confirmed No Home Medications 03/01/22 03/01/22 Allergies Allergy/AdvReac Type Severity Reaction Status Date / Time No Known Allergies Allergy Verified 03/01/22 07:27 Review of Systems Review of Systems: CONST: No fever. HEENT: No sore throat C/V: No chest pain RESP: No cough GI: Reports abdominal cramping : Vaginal bleeding. M/S: No joint pain. SKIN: No rash. NEURO: No lightheadedness PSYCH: Anxious PMFSH Past Medical History Medical History Encounter for biopsy 2011 soft tissue of back--benign Encounter for IUD insertion (07/15/20) Encounter for IUD removal (04/07/21) Encounter for screening examination for sexually transmitted disease HSV-1 infection hx Manic depression hypertension Seizure Surgical History Surgical History No history of previous surgery Family History Family History Mother Malignant tumor of cervix Other Malignant tumor of cervix maternal aunt Social History Social History Smoking status: Current every day smoker Tobacco type: e-cigarettes/vaping Alcohol intake: current Alcohol use details: 1 x month Substance use: never Substance use type: does not use Additional living arrangements comments: 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 EYES: EOMI, conjunctiva normal ENT: Hearing grossly intact LUNGS: Nonlabored breathing. HEART: [Regular rate and rhythm] ABD: [Soft], [nontender to palpation] EXT: Normal range of motion SKIN: [No rashes or lesions.] NEURO: [Alert and oriented x 3. No gross focal sensory or strength deficits.] PSYCH: Normal affect Course Vital Signs Vital signs: Vital Signs Temperature 97.1 F L 06/04/22 06:47 Pulse Rate 89 06/04/22 06:47 Respiratory Rate 16 06/04/22 06:47 Blood Pressure 111/73 06/04/22 06:47 Pulse Oximetry 100 06/04/22 06:47 Temperature 97.1 F L 06/04/22 06:47 Pulse Rate 89 06/04/22 06:47 Respiratory Rate 16 06/04/22 06:47 Blood Pressure 111/73 06/04/22 06:47 Pulse Oximetry 100 06/04/22 06:47 MDM - OB/Uterine Contractions MDM Narrative Medical decision making narrative: 26-year-old female who is 7 weeks by her dates presents with vaginal bleeding cramping, and concern for possible miscarriage versus ectopic, bedside ultrasound showed what appeared to be intrauterine gestational sac however I cannot be sure given the early dates, transvaginal ultrasound was ordered as well as basic labs. She believes she is Rh+. Signed out to oncoming ER Physician. Lab Data Result diagrams: 06/04/22 07:07 Labs: Lab Results 06/04/22 06/04/22 06/04/22 Range/Units 07:07 07:07 07:07 WBC 8.9 (4.5-10.0) K/mm3 RBC 4.02 L (4.2-5.4) M/mm3 Hgb 12.1 (12.0-15.0) g/dL Hct 35.5 L (37.0-47.0) % MCV 88.3 (80-100) fl MCH 30.1 (26-34) pg MCHC
[2022-06-04 07:21] LABS: Basophils Percent Auto 0.5 % (0.2-1.2); Eosinophils Absolute Auto 0.1 K/mm3 (0-0.3); Eosinophils Percent Auto 1.4 % (0-4.4); Hematocrit 35.5 % (37.0-47.0); Hemoglobin 12.1 g/dL (12.0-15.0); Immature Granulocyte Absolute 0.03 K/mm3 (0.00-0.031); Immature Granulocyte Percent A 0.3 % (0-0.5); Lymphocytes Absolute Auto 2.57 K/mm3 (0.9-3.2); Lymphocytes Percent Auto 28.9 % (18.3-44.2); Mean Corpuscular HGB Conc 34.1 g/dl (32-36); Mean Corpuscular Hemoglobin 30.1 pg (26-34); Mean Corpuscular Volume 88.3 fl (80-100); Mean Platelet Volume 10.4 fl (7.4-10.4); Monocytes Absolute Auto 1.2 K/mm3 (0.1-0.6); Neutrophils Percent Auto 55.9 % (45.5-73.1); Platelet Count Result 325 k/mm3 (150-375); Red Blood Count 4.02 M/mm3 (4.2-5.4); Red Cell Distribution Width 12.1 % (11.5-14.5); White Blood Count 8.9 K/mm3 (4.5-10.0)
[2022-06-04 07:30] LABS: INR 1.1
[2022-06-04 07:31] LABS: Partial Thromboplastin Time 31.8 SECONDS (22.3-36.8)
--- NOTE | 2022-06-04 07:36 | ED.GENADULT ---
HPI - General Adult General Chief complaint: Vaginal Bleeding Stated complaint: 7 weeks w vaginal bleeding & cramping Time Seen by Provider: 06/04/22 07:00 History of Present Illness HPI narrative: 26-year-old G3, P1 female at approximately 7 WGA presents for right-sided pelvic pain and vaginal bleeding since last night. Patient had 1 previous miscarriage at about 7 to 8 weeks. First OB appointment is next week and she has not had an ultrasound. Related Data Home Medications Medication Instructions Recorded Confirmed No Home Medications 03/01/22 03/01/22 Allergies Allergy/AdvReac Type Severity Reaction Status Date / Time No Known Allergies Allergy Verified 03/01/22 07:27 Review of Systems Review of Systems: CONSTITUTIONAL: Denies fever, chills, or sweats. EYES: Denies visual changes, redness, or discharge. ENT: Denies rhinorrhea, congestion, sore throat, or otalgia. CARDIOVASCULAR: Denies chest pain, palpitations, or edema. RESPIRATORY: Denies cough or dyspnea. GASTROINTESTINAL: Denies abdominal pain, nausea, vomiting, or diarrhea. GENITOURINARY: Denies dysuria or hematuria. SKIN: Denies rash or itching. MUSCULOSKELETAL: Denies back pain, joint pain, or myalgia. NEUROLOGIC: Denies headache, numbness, or weakness. PSYCHIATRIC: Denies anxiety or depression. [facility] Past Medical History Medical History Encounter for biopsy 2011 soft tissue of back--benign Encounter for IUD insertion (07/15/20) Encounter for IUD removal (04/07/21) Encounter for screening examination for sexually transmitted disease HSV-1 infection hx Manic depression hypertension Seizure Surgical History Surgical History No history of previous surgery Family History Family History Mother Malignant tumor of cervix Other Malignant tumor of cervix maternal aunt Social History Social History Smoking status: Current every day smoker Tobacco type: e-cigarettes/vaping Alcohol intake: current Alcohol use details: 1 x month Substance use: never Substance use type: does not use Additional living arrangements comments: 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 HEAD: Normocephalic, atraumatic. EYES: PERRLA and EOMI. ENT: Nares clear, no rhinorrhea or epistaxis. Mucous membranes moist. NECK: Supple. CHEST: Clear to auscultation. No respiratory distress. HEART: Regular rate and rhythm. No murmur heard. Normal peripheral pulses. ABDOMEN: Soft, nontender, nondistended, normal active bowel sounds. EXTREMITIES: Normal range of motion. No edema. SKIN: Warm, dry, no rash. NEURO: No focal deficits. Alert and oriented x3. PSYCH: Normal mood and affect. Course Vital Signs Vital signs: Vital Signs Temperature 97.1 F L 06/04/22 06:47 Pulse Rate 89 06/04/22 06:47 Respiratory Rate 16 06/04/22 06:47 Blood Pressure 111/73 06/04/22 06:47 Pulse Oximetry 100 06/04/22 06:47 Temperature 97.1 F L 06/04/22 06:47 Pulse Rate 89 06/04/22 06:47 Respiratory Rate 16 06/04/22 06:47 Blood Pressure 111/73 06/04/22 06:47 Pulse Oximetry 100 06/04/22 06:47 Medical Decision Making MDM Narrative Medical decision making narrative: LMP was April 17 and patient states irregular periods. Beta quant is in the 240s and pelvic ultrasound is nondiagnostic. I do have concern for ectopic as patient's pain is right greater than left and is in the right adnexa. My pelvic exam shows no vaginal bleeding and a closed os. I have explained the importance of repeat hCG and ult
[2022-06-04] MEDS: ACETAMINOPHEN 500 MG TABLET 1000 MG PO (08:40)
--- NOTE | 2022-06-04 08:40 | PC.NURSE ---
tylenol given per order. pt resting quietly on stretcher. no distress noted. all results back .pending further orders.
[2022-06-04 08:41] LABS: Beta HCG Quantitative 279.82 mIU/ML
[2022-06-04 11:53] LABS: Appearance Urine Clear (Clear); Bilirubin Urine Negative (Negative); Blood Urine Negative (Negative); Color Urine Yellow (Yellow); Glucose Urine UA Negative (Negative); Ketones Urine Negative (Negative); Leukocyte Esterase Ur Negative LEU/UL (Negative); Nitrate Urine Negative (Negative); Protein Urine Negative (Negative); Specific Grav Ur 1.015 (1.001-1.035); Urobilinogen Urine 0.2 mg/dL (<2.0)
[2022-06-04 11:55] LABS: Add Urine Microscopic? NO
== END 2022-06-04 13:00 | disposition home or self-care (01) ==
PROVIDERS: Emergency Medicine; Emergency Provider Emergency Medicine; PCP Family Medicine
DX: N93.8 Other specified abnormal uterine and vaginal bleeding (principal); R10.2 Pelvic and perineal pain; F17.290 Nicotine dependence, other tobacco product, uncomplicated
CPT/HCPCS: 36415; 76801; 76817; 81003; 84702; 85025; 85461; 85610; 85730; 86850; 86900; 86901; 87070; 87491; 87591; 87808; 99284; A9270

== ENCOUNTER 2022-06-06 10:29 | Outpatient (CLI) | payer OTHER, SELFPAY ==
[2022-06-06 11:41] LABS: Beta HCG Quantitative 249.49 mIU/ML
== END 2022-06-06 10:30 | disposition home or self-care (01) ==
LOC: ANHLAB 10:30
PROVIDERS: PCP Family Medicine; Visit Provider Obstetrics & Gynecology
DX: O20.0 Threatened abortion (principal)
CPT/HCPCS: 36415; 84702

== ENCOUNTER 2022-06-09 22:11 | Day surgery (SDC) | payer OTHER, SELFPAY ==
--- NOTE | ~2022-06-09 | US_ITS ---
EXAMINATION: US OB <=14 wk fetus w TV INDICATION: RLQ pain, r/o ectopic. Gestational age 7 weeks and 5 days by LMP. Beta hCG 837. TECHNIQUE: Sonography of the pelvis was performed by transabdominal and transvaginal techniques. COMPARISON: None. RESULT: Uterus: Orientation: Anteverted. 6 x 3.7 x 4.5 cm. Myometrium: Complex 13 mm thick endometrium. Gestation: - Intrauterine gestational sac: Not seen. Right ovary: 3 x 2.3 x 2.6 cm. Normal sonographic appearance with physiologic follicles. . 2 cm so mewhat heterogeneous hypoechoic area in the right ovary with intense surrounding vascular flow. 0.8 c m simple cyst or follicle. Left ovary: 2.2 x 1.3 x 2 cm. Normal sonographic appearance with physiologic follicles. . . Pelvis free fluid: Small volume free pelvic fluid IMPRESSION: 1. Positive test with no intrauterine gestational sac visualized. 2. Overall these findings represent of unknown location and are suspicious for fa ilure. Differential diagnosis includes early normal and ectopic . Ruptured ectopic pregnanc y considered less likely given the small volume of free pelvic fluid. 3. Complex right ovarian lesion, likely represent an involuting corpus luteal cyst. Ovarian ectopy is not excluded. 4. Heterogeneous centimeter complex may represent hemorrhage and/or products of conception. 5. Recommend follow-up serial beta-hCG values. Ultrasound follow-up should be considered as clinical ly warranted. Reviewed, dictated and finalized at [facility]. PUMPER IMPRESSION: 1. Positive test with no intrauterine gestational sac visualized. 2. Overall these findings represent of unknown location and are suspi cious for failure. Differential diagnosis includes early normal and ectopic . Ruptured ectopic considered less likely given the small volume of free pelvic fluid. 3. Complex right ovarian lesion, likely represent an involuting corpus luteal c yst. Ovarian ectopy is not excluded. 4. Heterogeneous centimeter complex may represent hemorrhage and/or products of conception. 5. Recommend follow-up serial beta-hCG values. Ultrasound follow-up should be considered as clinically warranted.
[2022-06-09 22:23] VITALS: BP 115/74; PULSE 106; RESP 16; TEMP 37.2; O2SAT 99
[2022-06-09 22:56] LABS: Basophils Percent Auto 0.5 % (0.2-1.2); Eosinophils Absolute Auto 0.1 K/mm3 (0-0.3); Eosinophils Percent Auto 0.9 % (0-4.4); Hematocrit 38.4 % (37.0-47.0); Immature Granulocyte Absolute 0.02 K/mm3 (0.00-0.031); Immature Granulocyte Percent A 0.2 % (0-0.5); Lymphocytes Absolute Auto 2.99 K/mm3 (0.9-3.2); Mean Corpuscular HGB Conc 33.9 g/dl (32-36); Mean Corpuscular Hemoglobin 30.2 pg (26-34); Mean Corpuscular Volume 89.1 fl (80-100); Mean Platelet Volume 10.2 fl (7.4-10.4); Monocytes Absolute Auto 0.7 K/mm3 (0.1-0.6); Monocytes Percent Auto 9.2 % (2.6-8.5); Neutrophils Absolute Auto 4.2 K/mm3 (1.3-6.7); Neutrophils Percent Auto 52.2 % (45.5-73.1); Platelet Count Result 387 k/mm3 (150-375); Red Blood Count 4.31 M/mm3 (4.2-5.4); White Blood Count 8.1 K/mm3 (4.5-10.0)
[2022-06-09 23:24] VITALS: BP 105/63; PULSE 93; RESP 16; O2SAT 100
--- NOTE | 2022-06-09 23:54 | ED.PREGNANCY ---
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 Patient is and currently around 7 weeks gestation. She developed right lower abdominal pain and vaginal bleeding last week and was seen in the ED at that time. Beta quant was only around 270 and ultrasound was inconclusive. She had a repeat beta quant performed 2 days later in which her numbers dropped slightly. She developed worsening pain again today, which prompted her return. She is still having some mild brown vaginal spotting, but bleeding has improved. She has not taken anything for the pain. Her PATTERNMAKER BENCH is Dr. Sachin Diaz, next appointment Saturday. <SG Crisostomo Last Filed: 06/10/22 03:02> Related Data Home medications: Home Medications Medication Instructions Recorded Confirmed No Home Medications 03/01/22 06/10/22 <SG Crisostomo Last Filed: 06/10/22 03:02> Allergies/Adverse reactions: Allergies Allergy/AdvReac Type Severity Reaction Status Date / Time No Known Allergies Allergy Verified 03/01/22 07:27 <SG Crisostomo Last Filed: 06/10/22 03:02> Review of Systems Review of Systems: CONSTITUTIONAL: Denies fever, chills, or sweats. CARDIOVASCULAR: Denies chest pain. RESPIRATORY: Denies dyspnea. GASTROINTESTINAL: Reports right lower quadrant abdominal pain. Denies nausea, vomiting, or diarrhea. GENITOURINARY: Reports brown vaginal spotting. Denies dysuria or hematuria. <Avis Jo PA-C - Last Filed: 06/10/22 03:02> All systems reviewed & are unremarkable except as noted in HPI and below <Avis Jo PA-C - Last Filed: 06/10/22 03:02> [facility] Past Medical History Medical History: Medical History (Updated 06/10/22 @ 11:22 by Moises Lamb MD) Encounter for biopsy 2011 soft tissue of back--benign Encounter for IUD insertion (07/15/20) Encounter for IUD removal (04/07/21) Encounter for screening examination for sexually transmitted disease 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 Manic depression hypertension Seizure <SG Crisostomo Last Filed: 06/10/22 03:02> Surgical History Surgical History: Surgical History No history of previous surgery <Avis Jo PA-C - Last Filed: 06/10/22 03:02> Family History Family History: Family History Mother Malignant tumor of cervix Other Malignant tumor of cervix maternal aunt <SG Crisostomo Last Filed: 06/10/22 03:02> Social History Social History: Social History Smoking status: Current every day smoker Tobacco type: e-cigarettes/vaping Alcohol intake: current Alcohol use details: 1 x month Substance use: never Substance use type: does not use Additional living arrangements comments: 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
[2022-06-10] VITALS (100 sets, daily range): BP systolic 92–112; BP diastolic 36–67; PULSE 55–110; RESP 12–20; TEMP 36.9–37.1; O2SAT 94–100; BMI 19.1
[2022-06-10 01:15] LABS: Appearance Urine Clear (Clear); Bilirubin Urine Negative (Negative); Blood Urine Negative (Negative); Color Urine Yellow (Yellow); Glucose Urine UA Negative (Negative); Ketones Urine Trace mg/dL (Negative); Leukocyte Esterase Ur Negative LEU/UL (Negative); Nitrate Urine Negative (Negative); Protein Urine Negative (Negative); Specific Grav Ur 1.025 (1.001-1.035); pH Urine 6.5 (5.0-9.0)
[2022-06-10 01:28] LABS: Bacteria Urine Trace /hpf; Mucus Urine Rare /lpf; RBC Urine 0-2 /hpf (0-2); Squamous Epithelial Cell Urine Few /hpf (Few); WBC Urine 0-3 /hpf
[2022-06-10 01:29] LABS: Add Urine Microscopic? YES
[2022-06-10 03:13] LABS: Alanine Aminotransferase 59 U/L (6-35); Albumin Level 4.5 g/dL (3.5-5.1); Alkaline Phosphatase 121 U/L (38-126); Anion Gap 12 mmol/L (8-16); Aspartate Amino Transferase 58 U/L (14-36); Bilirubin,Total 0.3 mg/dL (0.2-1.3); Blood Urea Nitrogen 9 mg/dL (7-17); Calcium 8.9 mg/dL (8.4-10.2); Carbon Dioxide 24 mmol/L (22-30); Chloride 104 mmol/L (98-107); Estimated Glomerular Filt Rate > 60; Glucose 107 mg/dL (65-110); Sodium 140 mmol/L (137-145)
[2022-06-10 03:28] LABS: Hematocrit 32.9 % (37.0-47.0); Hemoglobin 11.2 g/dL (12.0-15.0)
--- NOTE | 2022-06-10 08:17 | PM.IMHP ---
H&P: HPI History of Present Illness Date/Time: 06/10/22 08:17 Chief Complaint: Right-sided pain in light of the Narrative: this is a 26-year-old 1 para 0 with abnormally rising HCGs. Ultrasound shown high likelihood of this being a right-sided ectopic. Her pain is relatively strong. There was some free fluid in the pelvis. She initially had a quantitative HCG that dropped and now is risen to 800. In light of these findings the patient declined attempt at methotrexate and has agreed to laparoscopic right salpingectomy with the possible salpingostomy possible RSO. She will also undergo suction D&C for removal of the clots in the uterus. FORMERLY [facility], [facility] Past Medical History Medical History Encounter for biopsy 2011 soft tissue of back--benign Encounter for IUD insertion (07/15/20) Encounter for IUD removal (04/07/21) Encounter for screening examination for sexually transmitted disease HSV-1 infection hx Manic depression hypertension Seizure Surgical History Surgical History No history of previous surgery Family History Family History Mother Malignant tumor of cervix Other Malignant tumor of cervix maternal aunt Social History Social History Smoking status: Current every day smoker Tobacco type: e-cigarettes/vaping Alcohol intake: current Alcohol use details: 1 x month Substance use: never Substance use type: does not use Additional living arrangements comments: 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 Gender identity (if verbalized by the patient): Female Sexual Orientation (if Verbalized by the Patient): Bisexual Meds Home Medications and Allergies Home Medications Medication Instructions Recorded Confirmed Type No Home Medications 03/01/22 06/10/22 History Allergies Allergy/AdvReac Type Severity Reaction Status Date / Time No Known Allergies Allergy Verified 03/01/22 07:27 Vital Signs Vital Signs - 24 hr 06/09/22 22:23 06/09/22 23:24 06/10/22 03:36 Temperature 98.9 F Pulse Rate 106 H 93 81 Respiratory Rate 16 16 Blood Pressure 115/74 105/63 112/60 Pulse Oximetry 99 100 100 Oxygen Delivery Room Air 06/10/22 03:43 06/10/22 03:48 06/10/22 03:53 Temperature Pulse Rate Respiratory Rate Blood Pressure Pulse Oximetry 100 100 100 Oxygen Delivery 06/10/22 03:58 06/10/22 04:04 06/10/22 04:09 Temperature Pulse Rate Respiratory Rate Blood Pressure Pulse Oximetry 100 100 100 Oxygen Delivery 06/10/22 04:10 06/10/22 04:15 06/10/22 04:20 Temperature Pulse Rate Respiratory Rate Blood Pressure Pulse Oximetry 100 99 100 Oxygen Delivery 06/10/22 04:25 06/10/22 04:30 06/10/22 04:35 Temperature Pulse Rate Respiratory Rate Blood Pressure Pulse Oximetry 99 99 99 Oxygen Delivery 06/10/22 04:40 06/10/22 04:45 06/10/22 04:50 Temperature Pulse Rate Respiratory Rate Blood Pressure Pulse Oximetry 99 100 100 Oxygen Delivery 06/10/22 04:55 06/10/22 05:00 06/10/22 05:05 Temperature Pulse Rate Respiratory Rate Blood Pressure Pulse Oximetry 99 99 99 Oxygen Delivery 06/10/22 05:10 06/10/22 05:15 06/10/22 05:20 Temperature Pulse Rate Respiratory Rate Blood Pressure Pulse Oximetry 99 98 98 Oxygen Delivery 06/10/22 05:25 06/10/22 05:30 06/10/22 05:35 Temperature Pulse Rate Respiratory Rate Blood Pressure Pulse Oximetry 98 98 98 Oxygen Delivery 06/10/22 05:40 06/10/22 05:45 06/10/22 05:48 Temperature Pulse Rate Respiratory Rate Blood Pressure Pulse Oximetry 98 98 99 Oxygen Delivery 06/10/22 05:53 06/10/22
--- NOTE | 2022-06-10 08:21 | WPDHPUPDATE1 ---
History and Physical Update Update Date/Time: 06/10/22 08:21 History and Physical has been reviewed, including an updated exam of the patient. There are NO changes in the patient's condition. Risks, benefits, and alternatives have been discussed and questions answered. Patient agrees to proceed with procedure.
[2022-06-10] MEDS: LACTATED RINGERS 1,000 ML 125 ML IV CONT (10:46)
--- NOTE | 2022-06-10 10:58 | OBADM ---
This patient, Cale Emerson, admitted to the OB room OB Post 112 for observation. Patient/family oriented to hospital policies and general routines including ID bracelet, bed and alarms, visiting hours, pain management, procedures, bathroom and other care routines, personal items, smoking policy, room service/diet, and visiting hours. Patient/Family are encouraged to report perceived risks to care and to ask questions if they do not understand what they are told or what they should do.
--- NOTE | 2022-06-10 11:20 | WPDANESEPPF ---
Anes - Initial Pre Proc Eval Procedure: Operation Date: 06/10/22 12:30 Proposed Procedures p Diagnostic Laparoscopy Pos Lap Lap Salpingectomy - Theo Diaz MD Date/Time: 06/10/22 11:20 Surgeon: Theo Diaz MD Pre Op Diagnosis: ectopic Patient Data Age: 26 Gender: F Height: 1.6 m Weight: 49 kg Last Vital Signs Temp 37.0 C 06/10/22 03:56 Pulse 72 06/10/22 07:59 Resp 16 06/10/22 03:56 BP 92/36 L 06/10/22 07:59 Pulse Ox 100 06/10/22 07:56 O2 Del Method Room Air 06/10/22 07:59 Allergies Allergy/AdvReac Type Severity Reaction Status Date / Time No Known Allergies Allergy Verified 03/01/22 07:27 Home Medications Medication Instructions Recorded Confirmed Type No Home Medications 03/01/22 06/10/22 History hydrocodone 5 mg-acetaminophen 325 1 tablet PO Q4H PRN pain #30 tabs 06/10/22 Rx mg tablet Laboratory Tests 06/09/22 06/09/22 06/09/22 22:44 22:46 22:46 WBC 8.1 K/mm3 K/mm3 (4.5-10.0) RBC 4.31 M/mm3 M/mm3 (4.2-5.4) Hgb 13.0 g/dL g/dL (12.0-15.0) Hct 38.4 % % (37.0-47.0) MCV 89.1 fl fl (80-100) MCH 30.2 pg pg (26-34) MCHC 33.9 g/dl g/dl (32-36) RDW 12.0 % % (11.5-14.5) Plt Count 387 k/mm3 H k/mm3 (150-375) MPV 10.2 fl fl (7.4-10.4) Immature Gran % (Auto) 0.2 % % (0-0.5) Neut % (Auto) 52.2 % % (45.5-73.1) Lymph % (Auto) 37.0 % % (18.3-44.2) [place] % (Auto) 9.2 % H % (2.6-8.5) Eos % (Auto) 0.9 % % (0-4.4) Baso % (Auto) 0.5 % % (0.2-1.2) Lymph # (Auto) 2.99 K/mm3 K/mm3 (0.9-3.2) [place] # (Auto) 0.7 K/mm3 H K/mm3 (0.1-0.6) Eos # (Auto) 0.1 K/mm3 K/mm3 (0-0.3) Baso # (Auto) 0.0 K/mm3 K/mm3 (0.0-0.1) Abs Immat Gran (auto) 0.02 K/mm3 K/mm3 (0.00-0.031) Absolute Neuts (auto) 4.2 K/mm3 K/mm3 (1.3-6.7) Absolute Nucleated RBC 0.0 K/mm3 K/mm3 (0.0-0.012) Nucleated RBC % 0.0 % % (0.0-0.2) Sodium 140 mmol/L mmol/L (137-145) Potassium 4.0 mmol/L mmol/L (3.4-5.0) Chloride 104 mmol/L mmol/L (98-107) Carbon Dioxide 24 mmol/L mmol/L (22-30) Anion Gap 12 mmol/L mmol/L (8-16) BUN 9 mg/dL mg/dL (7-17) Creatinine 0.60 mg/dL L mg/dL (0.7-1.0) Estim Creat Clear Calc Not Reportable Estimated GFR > 60 (59 - ) Glucose 107 mg/dL mg/dL (65-110) Calcium 8.9 mg/dL mg/dL (8.4-10.2) Total Bilirubin 0.3 mg/dL mg/dL (0.2-1.3) AST 58 U/L H U/L (14-36) ALT 59 U/L H U/L (6-35) Alkaline Phosphatase 121 U/L U/L (38-126) Total Protein 8.0 g/dL g/dL (6.3-8.2) Albumin 4.5 g/dL g/dL (3.5-5.1) Beta HCG, Quant 837.36 mIU/ML mIU/ML Urine Color Urine Appearance Urine pH Ur Specific [place] Urine Protein Urine Glucose (UA) Urine Ketones Ur Blood (Man) Urine Nitrate Urine Bilirubin Urine Urobilinogen Leukocyte Esterase Rfl Urine RBC Urine WBC Ur Squamous Epith Cells Urine Bacteria Urine Mucus Blood Type Antibody Screen Screen Baby's Blood Type Baby's PRANAV Doses of RhIg Required 06/09/22 06/10/22 06/10/22 22:46 01:05 03:24 WBC RBC Hgb 11.2 g/dL L g/dL (12.0-15.0) Hct 32.9 % L % (37.0-47.0) MCV MCH MCHC RDW Plt Count MPV Immature Gran % (Auto) Neut % (Auto) Lymph % (
--- NOTE | 2022-06-10 11:54 | PC.NURSE ---
1145- patient taken to OR via stretcher.
[2022-06-10] MEDS: LACTATED RINGERS 1,000 ML 30 ML IV CONT (12:57)
--- NOTE | 2022-06-10 13:04 | PM.DS ---
DS: Admitting Diagnosis Discharge Date 06/10/2022 Admitting Diagnosis ectopic DS: Discharge Diagnosis Discharge Diagnosis (1) Ectopic : Qualifiers: Intrauterine status: without intrauterine Location of ectopic : unspecified location Qualified Code(s): O00.90 - Unspecified ectopic without intrauterine Code(s): O00.90 - Unspecified ectopic without intrauterine Status: Acute DS: Summary Hospital Course Reason for hospitalization: the patient was admitted with right lower quadrant pain and abnormal HCGs Hospital Course: patient was admitted through the ER with an expected ectopic. Ultrasound showed some free fluid and a mass in the right with no abnormal findings in the uterus. She underwent laparoscopic right salpingostomy with removal of the ectopic and blood loss was minimal. Her hospital course thereafter was unremarkable. She remained afebrile. She was up ambulating eating regular diet voiding without difficulty general without complaints. Time Spent with Patient Time attestation: Total time spent providing and/or coordinating discharge services: Exam Const: General: cooperative, healthy appearing and comfortable Nutritional Appearance: average body habitus Orientation/consciousness: oriented to person, oriented to place and oriented to time Resp: Effort & Inspection: normal respiratory effort GI: Inspection: normal to inspection and incision ( Clean dry and intact) Auscultation: normal bowel sounds DS: Data Data Completed and Pending Pending studies at discharge: Pending at discharge 06/10/22 12:45 Surgical [PTH] Routine Labs on day of discharge: Labs from last 24 hours 06/10/22 06/10/22 06/09/22 03:24 01:05 22:46 WBC RBC Hgb 11.2 L Hct 32.9 L MCV MCH MCHC RDW Plt Count MPV Immature Gran % (Auto) Neut % (Auto) Lymph % (Auto) [place] % (Auto) Eos % (Auto) Baso % (Auto) Lymph # (Auto) [place] # (Auto) Eos # (Auto) Baso # (Auto) Abs Immat Gran (auto) Absolute Neuts (auto) Absolute Nucleated RBC Nucleated RBC % Sodium Potassium Chloride Carbon Dioxide Anion Gap BUN Creatinine Estim Creat Clear Calc Estimated GFR Glucose Calcium Total Bilirubin AST ALT Alkaline Phosphatase Total Protein Albumin Beta HCG, Quant Urine Color Yellow Urine Appearance Clear Urine pH 6.5 Ur Specific [place] 1.025 Urine Protein Negative Urine Glucose (UA) Negative Urine Ketones Trace Ur Blood (Man) Negative Urine Nitrate Negative Urine Bilirubin Negative Urine Urobilinogen 2.0 H Leukocyte Esterase Rfl Negative Urine RBC 0-2 Urine WBC 0-3 Ur Squamous Epith Cells Few Urine Bacteria Trace Urine Mucus Rare Blood Type O Positive Antibody Screen Negative Screen TNP Baby's Blood Type TNP Baby's PRANAV Not Reportable Doses of RhIg Required 0 06/09/22 06/09/22 06/09/22 22:46 22:46 22:44 WBC 8.1 RBC 4.31 Hgb 13.0 Hct 38.4 MCV 89.1 MCH 30.2 MCHC 33.9 RDW 12.0 Plt Count 387 H MPV 10.2 Immature Gran % (Auto) 0.2 Neut % (Auto) 52.2 Lymph % (Auto) 37.0 [place] % (Auto) 9.2 H Eos % (Auto) 0.9 Baso % (Auto) 0.5 Lymph # (Auto) 2.99 [place] # (Auto) 0.7 H Eos # (Auto) 0.1 Baso # (Auto) 0.0 Abs Immat Gran (auto) 0.02 Absolute Neuts (auto) 4.2 Absolute Nucleated RBC 0.0 Nucleated RBC % 0.0 Sodium 140 Potassium 4.0 Chloride 104 Carbon Dioxide 24 Anion Gap 12 BUN 9 Creatinine 0.60 L Estim Creat Clear Calc Not Reportable Estimated GFR > 60 Glucose 107 Calcium 8.9 Total Bilirubin 0.3 AST 58 H ALT 59 H Alkaline Phosphatase 121 Total Protein 8.0 Albumin 4.5 Beta HC
[2022-06-10] MEDS: fentaNYL CITRATE INJ (*CRX) 100 MCG/2 ML VIAL 25 MCG IV PUSH ×8 (13:06→13:57)
--- NOTE | 2022-06-10 13:09 | W.PM.PROC2 ---
Procedure Note - Detailed Date of Procedure 06/10/22 Pre-op Diagnosis ectopic on the right Post-op Diagnosis Same Procedure Performed laparoscopic right salpingectomy and resection of ectopic Surgeon Theo Diaz MD Anesthesia General Indications this is a 26-year-old female with and suspected right ectopic by ultrasound an abnormally rising HCGs. Findings A right mid portion of the tube containing what appeared to be an ectopic . [id number] of blood in the abdomen. The left tube and ovary appeared within normal limits as did the uterus and the right ovary. There was some adhesions from the omentum to the left lateral sidewall. Description of Procedure The patient was prepped draped in normal sterile fashion placed in dorsal lithotomy position. Under excellent general trach anesthesia weighted speculum placed in posterior fornix vagina. Anterior lip of the cervix grasped with a single-tooth tenaculum the Concepcion's cannula inserted to the uterus attached to the single-tooth to be used later for uterine manipulation. Bladder was then emptied of clear urine and the weighted speculum removed. The gloves were changed. An infraumbilical incision made the Veress needle passed in the abdomen. Abdomen filled with CO2 gas [id number]. 5Mm trocar advanced under direct visualization with the Optiview no injury seen. Patient placed in Trendelenburg and a suprapubic incision made. The 5mm trocar advanced under direct visualization assuring injury. Clots and debris were noted. The left ovary and tube appeared within normal limits on the were some adhesions over the top of the which were gently taken down with sharp dissection. The right fallopian tube looked to appear to have a ectopic at the midportion. There was clot hanging out of the ampullary region of right. A right lower quadrant incision made the 5mm trocar advanced under direct visualwpa then grasped placed on stretch and using a monopolar cautery was opened in linear fashion the ectopic was removed from inside. Irrigation undertaken until clear and this was sprinkled with [place] term. This was watched for 5minutes and noted be hemostatic. Irrigation was undertaken and the the pelvis and cleared. The instruments were then from the abdomen after gas removed from the abdomen. The incisions closed with 4 Monocryl and glue. The instruments removed from the vagina and the patient was awakened. All sponge, needle, instrument counts were correct. There were no immediate complications and the Estimated Blood Loss -25.0 Drains No Packing No Pathology Yes Complications No immediate complications Condition Stable Disposition PACU
[2022-06-10] MEDS: HYDROmorphone HCL INJ (*CRX) 1 MG/ML SYR 0.5 MG IV PUSH ×2 (14:12→14:17)
[2022-06-10] MEDS: KETOROLAC 30 MG/ML VIAL (*BKC) IV PUSH (15:24)
--- NOTE | 2022-06-10 16:55 | PC.NURSE ---
Addendum entered by Karen Schmidt RN 06/10/22 16:56: Patient sitting up eating crackers and sprite/apple juice. Original Note: 1495- Patient ambulated to and from restroom. Voided well.
[2022-06-10] MEDS: HYDROcodone/acetaminophen (*CRX) 5-325 MG TABLET 1 TAB PO (17:06)
== END 2022-06-10 19:15 | disposition home or self-care (01) ==
LOC: ANHED 06-10 03:05 → ANHOBPP 06-10 08:23 → ANHSURGERY 06-11 14:08 → ANHOBPP 06-11 14:08
PROVIDERS: Physician Assistant; Emergency Provider Emergency Medicine; PCP Family Medicine; Visit Provider Obstetrics & Gynecology
PROC: (CPT 49320; principal; 2022-06-10 12:30)
DX: O00.101 Right tubal pregnancy without intrauterine pregnancy (principal); O99.331 Smoking (tobacco) complicating pregnancy, first trimester; F17.290 Nicotine dependence, other tobacco product, uncomplicated; Z3A.01 Less than 8 weeks gestation of pregnancy
CPT/HCPCS: 59150; 36415; 76801; 76817; 80053; 81001; 84702; 85014; 85018; 85025; 85461; 86850; 86900; 86901; 88305; 99199; 99285; A9270; J0330; J1100; J1170; J1885; J2250; J2405; J2704; J3010; J7030; J7120

== ENCOUNTER 2022-08-14 17:27 | Emergency (ER) | payer OTHER, SELFPAY ==
--- NOTE | ~2022-08-14 | XR_ITS ---
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 RESULT: Lines, tubes, and devices: None. Lungs and pleura: Clear. Cardiomediastinal silhouette: Stable. Other: No acute osseous or upper abdominal finding. IMPRESSION: No acute cardiopulmonary process. Reviewed, dictated and finalized at location K. R SYSTEMS ENGINEER
[2022-08-14 18:21] VITALS: BP 135/94; PULSE 100; RESP 16; TEMP 36.9; O2SAT 96
--- NOTE | 2022-08-14 18:25 | ED.SOB ---
HPI - SOB/Dyspnea General Chief Complaint: Shortness of Breath/Dyspnea Stated Complaint: sob, dizzy, cp Time Seen by Provider: 08/14/22 18:23 History of Present Illness HPI Narrative: 27-year-old female with a history of anxiety presents the emergency room for evaluation of shortness of breath, reproducible chest pain and dizziness. Patient states she has been experiencing symptoms for 1 week, and reports that they have progressively gotten worse. Was seen in urgent care earlier today and was encouraged to come to the ER for further evaluation. Patient states that she had an ectopic over 1 month ago. Is not on control. No recent traumas, coagulopathy disorders, or long periods of immobility. Related Data Allergies Allergy/AdvReac Type Severity Reaction Status Date / Time No Known Allergies Allergy Verified 03/01/22 07:27 Review of Systems Review of Systems: CONSTITUTIONAL: Denies fever, chills, or sweats. EYES: Denies visual changes, redness, or discharge. ENT: Denies rhinorrhea, congestion, sore throat, or otalgia. CARDIOVASCULAR: Reports chest pain, shortness of breath RESPIRATORY: Denies cough or dyspnea. GASTROINTESTINAL: Denies abdominal pain, nausea, vomiting, or diarrhea. GENITOURINARY: Denies dysuria or hematuria. SKIN: Denies rash or itching. MUSCULOSKELETAL: Denies back pain, joint pain, or myalgia. NEUROLOGIC: Reports dizziness PSYCHIATRIC: Denies anxiety or depression. [facility] Past Medical History Medical History Encounter for biopsy 2011 soft tissue of back--benign Encounter for IUD insertion (07/15/20) Encounter for IUD removal (04/07/21) Encounter for screening examination for sexually transmitted disease 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 Manic depression hypertension Seizure Surgical History Surgical History No history of previous surgery Family History Family History Mother Malignant tumor of cervix Other Malignant tumor of cervix maternal aunt Social History Social History Smoking status: Current every day smoker Tobacco type: e-cigarettes/vaping Alcohol intake: current Alcohol use details: 1 x month Substance use: never Substance use type: does not use Living arrangements: other Additional living arrangements comments: Occupation/Education: occupation 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 HEAD: Normocephalic, atraumatic. EYES: Conjunctivae normal, PERRLA and EOMI. CHEST: Clear to auscultation. No respiratory distress. No wheezes rales or rhonchi. HEART: Regular rate and rhythm. No murmur heard. Normal peripheral pulses. BACK: No CVA tenderness; No cervical/thoracic/lumbar tenderness, step-offs, bony abnormality; FROM EXTREMITIES: Normal range of motion. No edema. No clubbing or cyanosis SKIN: Warm, dry, no rash. No noted wounds NEURO: No focal deficits. Alert and oriented x3. MAEW. CN's II-XI intact bilaterally, normal gait PSYCH: Cooperative. Normal mood and affect. Course Vital Signs Vital signs: Vital Signs Temperature 36.9 C 08/14/22 18:21 Pulse Rate 100 08/14/22 18:21 Respiratory Rate 16 08/14/22 18:21 Blood Pressure 135/94 H 08/14/22 18:21 Pulse Oximetry 96 08/14/22 18:21 Temperature 36.9 C 08/14/22 18:21 Pulse Rate 100 08/14/22 18:21 Respiratory Rate 16 08/14/22 18:21 Blood Pressure 135/94 H 08/14/22 18:21 Pulse Oximetry 96 08/14/22 18:21 MDM - SOB/Dyspnea MDM Narrative Medical decision making narrative: 2
--- NOTE | 2022-08-14 18:26 | ECG_ITS ---
Measurements Intervals [place] Rate: 72 P: 26 SC: 130 QRS: 70 QRSD: 92 T: 53 QT: 366 QTc: 402 Interpretive Statements SINUS RHYTHM BASELINE ARTIFACT- I, II, AVR, AVL, AVF, V1-V6 NORMAL ECG COMPARED TO ECG 02/23/2022 00:44:10 NO SIGNIFICANT CHANGES Electronically Signed On 08-14-2022 20:07:09 TIME STUDY ANALYST by Franck White D.O.
[2022-08-14 18:32] LABS: Basophils Absolute Auto 0.1 K/mm3 (0.0-0.1); Basophils Percent Auto 0.6 % (0.2-1.2); Eosinophils Absolute Auto 0.1 K/mm3 (0-0.3); Eosinophils Percent Auto 1.3 % (0-4.4); Hematocrit 40.7 % (37.0-47.0); Hemoglobin 13.7 g/dL (12.0-15.0); Immature Granulocyte Absolute 0.02 K/mm3 (0.00-0.031); Immature Granulocyte Percent A 0.2 % (0-0.5); Lymphocytes Percent Auto 34.2 % (18.3-44.2); Mean Corpuscular HGB Conc 33.7 g/dl (32-36); Mean Corpuscular Hemoglobin 30.2 pg (26-34); Mean Corpuscular Volume 89.8 fl (80-100); Mean Platelet Volume 10.5 fl (7.4-10.4); Monocytes Absolute Auto 0.9 K/mm3 (0.1-0.6); Monocytes Percent Auto 9.9 % (2.6-8.5); Neutrophils Absolute Auto 4.7 K/mm3 (1.3-6.7); Neutrophils Percent Auto 53.8 % (45.5-73.1); Platelet Count Result 356 k/mm3 (150-375); Red Blood Count 4.53 M/mm3 (4.2-5.4); White Blood Count 8.8 K/mm3 (4.5-10.0)
[2022-08-14 18:44] LABS: Anion Gap 10 mmol/L (8-16); Blood Urea Nitrogen 9 mg/dL (7-17); Calcium 8.9 mg/dL (8.4-10.2); Carbon Dioxide 23 mmol/L (22-30); Chloride 107 mmol/L (98-107); Estimated CRCL calculation 94 ml/min; Estimated Glomerular Filt Rate > 60; Glucose 77 mg/dL (65-110); Potassium 3.8 mmol/L (3.4-5.0); Sodium 140 mmol/L (137-145)
[2022-08-14 18:49] LABS: D Dimer 0.42 ug/mL (<0.48)
[2022-08-14 18:58] LABS: Troponin I < 0.012 ng/mL (0.000-0.034)
[2022-08-14 19:57] VITALS: BP 102/73; PULSE 92; RESP 19; TEMP 36.6; O2SAT 100
== END 2022-08-14 20:13 | disposition home or self-care (01) ==
PROVIDERS: Emergency Provider Nurse Practitioner Family; PCP Family Medicine
DX: R09.1 Pleurisy (principal); F17.290 Nicotine dependence, other tobacco product, uncomplicated
CPT/HCPCS: 36415; 71046; 80048; 84484; 85025; 85380; 93005; 99284

== ENCOUNTER 2023-03-01 22:01 | Emergency (ER) | payer OTHER, SELFPAY ==
[2023-03-01 22:20] VITALS: BP 124/68; PULSE 83; RESP 17; TEMP 36.6; O2SAT 100
--- NOTE | 2023-03-01 22:49 | PC.NURSE ---
patient not waiting to wait any longer. states she will come back if symptoms get worse. alert and oriented x4.
== END 2023-03-02 01:22 | disposition left against medical advice (07) ==
PROVIDERS: PCP Family Medicine
DX: O26.891 Other specified pregnancy related conditions, first trimester (principal)
CPT/HCPCS: 99199

== ENCOUNTER 2023-05-01 14:23 | Emergency (ER) | payer OTHER, SELFPAY ==
[2023-05-01 14:39] VITALS: BP 100/70; PULSE 94; RESP 16; TEMP 37.1; O2SAT 100
--- NOTE | 2023-05-01 14:56 | ED.URI ---
HPI - URI/Sore Throat General Chief Complaint: Upper Respiratory Infection Stated Complaint: Sore Throat Time Seen by Provider: 05/01/23 14:40 Source: patient Mode of arrival: ambulatory Limitations: no limitations History of Present Illness HPI Narrative: 27-year-old female presents with complaint of sore throat, fever, headaches, body aches for 2 days. Reports symptoms remind her of the last time that she had strep. Reports nausea but states that she is 12 weeks so this is normal for her. All systems reviewed and negative except as noted above. Related Data Home Medications Medication Instructions Recorded Confirmed vit#24-iron amino acid 1 tablet PO DAILY 05/01/23 05/01/23 chelat-folic acid 30 mg-975 mcg tablet Allergies Allergy/AdvReac Type Severity Reaction Status Date / Time No Known Allergies Allergy Verified 05/01/23 14:34 Review of Systems Review of Systems: CONSTITUTIONAL: Reports fever, chills. Denies sweats. EYES: Denies visual changes, redness, or discharge. ENT: Denies rhinorrhea, congestion. Reports sore throat. Denies otalgia. CARDIOVASCULAR: Denies chest pain, palpitations, or edema. RESPIRATORY: Denies cough or dyspnea. GASTROINTESTINAL: Denies abdominal pain, nausea, vomiting, or diarrhea. GENITOURINARY: Denies dysuria or hematuria. SKIN: Denies rash or itching. MUSCULOSKELETAL: Denies back pain, joint pain, or myalgia. NEUROLOGIC: Denies headache, numbness, or weakness. PSYCHIATRIC: Denies anxiety or depression. All other systems reviewed are negative, except as documented in HPI. 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 Manic depression hypertension Seizure Surgical History Surgical History No history of previous surgery Family History Family History Mother Malignant tumor of cervix Other Malignant tumor of cervix maternal aunt Social History Social History Smoking status: Current every day smoker Tobacco type: e-cigarettes/vaping Alcohol intake: current Alcohol use details: 1 x month Substance use: never Substance use type: does not use Living arrangements: other Additional living arrangements comments: Occupation/Education: occupation 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 There is no relevant family history pertinent to the presenting complaint. Exam Narrative: GENERAL: This is a well-nourished, well-developed patient, in no apparent distress. HEAD: normocephalic, atraumatic. EYES: PERRL. Sclera clear/white. Vision is grossly intact. EARS: External ears normal, auditory canals clear and without drainage, TMs normal without perforation. Hearing grossly intact. NOSE: External nose normal with no obvious nasal discharge, nares without redness, no rhinorrhea. THROAT: Mucous membranes moist, erythema, mild swelling. No exudates. NECK: Neck supple, non-tender without lymphadenopathy, masses or thyromegaly. CARDIOVASCULAR: Regular rate and rhythm without murmurs, gallops, or rubs. RESPIRATORY: Clear to auscultation. Breath sounds equal bilaterally. No wheezes, rales, or rhonchi. SKIN: warm, Dry, intact with no suspicious lesions or rash, good texture and turgor. NEURO: awake, alert, and oriented to person, place an
== END 2023-05-01 14:56 | disposition home or self-care (01) ==
PROVIDERS: Emergency Provider Nurse Practitioner Family; PCP Family Medicine
DX: O99.511 Diseases of the respiratory system complicating pregnancy, first trimester (principal); J02.9 Acute pharyngitis, unspecified; O99.331 Smoking (tobacco) complicating pregnancy, first trimester; F17.290 Nicotine dependence, other tobacco product, uncomplicated; Z3A.12 12 weeks gestation of pregnancy
CPT/HCPCS: 87081; 87880; 99213; G0463

== ENCOUNTER 2023-05-12 22:11 | Emergency (ER) | payer OTHER, SELFPAY ==
[2023-05-12 22:20] VITALS: BP 109/66; PULSE 77; RESP 16; TEMP 36.7; O2SAT 99
[2023-05-12 22:34] VITALS: BP 111/63; PULSE 80; RESP 15; O2SAT 100
[2023-05-12 23:01] LABS: Appearance Urine Cloudy (Clear); Bacteria Urine None Seen /hpf; Bilirubin Urine Negative (Negative); Blood Urine Negative (Negative); Color Urine Yellow (Yellow); Glucose Urine UA Negative (Negative); Ketones Urine Negative (Negative); Leukocyte Esterase Ur Negative LEU/UL (Negative); Nitrate Urine Negative (Negative); Non Pathogenic Casts 0-2; Protein Urine Negative (Negative); RBC Urine 0-2 /hpf (0-2); Specific Grav Ur 1.023 (1.001-1.035); Squamous Epithelial Cell Urine None seen /hpf (Few); WBC Urine 0-5 /hpf
[2023-05-12 23:03] LABS: Add Urine Microscopic? NO
[2023-05-12 23:09] LABS: Basophils Percent Auto 0.4 % (0.2-1.2); Eosinophils Absolute Auto 0.1 K/mm3 (0-0.3); Eosinophils Percent Auto 1.1 % (0-4.4); Hematocrit 35.4 % (37.0-47.0); Immature Granulocyte Absolute 0.05 K/mm3 (0.00-0.031); Immature Granulocyte Percent A 0.5 % (0-0.5); Lymphocytes Absolute Auto 3.31 K/mm3 (0.9-3.2); Mean Corpuscular HGB Conc 33.9 g/dl (32-36); Mean Corpuscular Hemoglobin 30.4 pg (26-34); Mean Corpuscular Volume 89.6 fl (80-100); Mean Platelet Volume 10.4 fl (7.4-10.4); Monocytes Absolute Auto 1.1 K/mm3 (0.1-0.6); Neutrophils Absolute Auto 6.4 K/mm3 (1.3-6.7); Platelet Count Result 389 k/mm3 (150-375); Red Blood Count 3.95 M/mm3 (4.2-5.4); Red Cell Distribution Width 12.4 % (11.5-14.5)
[2023-05-12] MEDS: ACETAMINOPHEN 500 MG TABLET 1000 MG PO (23:19)
[2023-05-12] MEDS: ONDANSETRON INJ 4 MG/2 ML VIAL IV PUSH (23:19)
[2023-05-12 23:21] LABS: Alanine Aminotransferase 15 U/L (6-35); Alkaline Phosphatase 63 U/L (38-126); Anion Gap 8 mmol/L (8-16); Aspartate Amino Transferase 22 U/L (14-36); Bilirubin,Total 0.4 mg/dL (0.2-1.3); Blood Urea Nitrogen 4 mg/dL (7-17); Carbon Dioxide 25 mmol/L (22-30); Chloride 104 mmol/L (98-107); Estimated CRCL calculation 119 ml/min; Estimated Glomerular Filt Rate > 60; Glucose 91 mg/dL (65-110); Lipase 201 U/L (23-300); Potassium 3.4 mmol/L (3.4-5.0); Sodium 137 mmol/L (137-145)
[2023-05-13 00:25] VITALS: PULSE 74; RESP 15; O2SAT 19
--- NOTE | 2023-05-13 01:34 | ED.ABDPAIN ---
HPI - Abdominal Pain General Chief Complaint: Abdominal Pain Stated Complaint: Abd pain, 14 weeks preg Time Seen by Provider: 05/12/23 22:33 History of Present Illness HPI narrative: Patient presents the emergency department with concern for left flank pain. Pain radiates into the left upper abdomen. She is 14 weeks . Patient has continued to have nausea with her . She has seen her physician previously and has had an ultrasound. Denies urinary symptoms. Denies fevers and chills. She is accompanied by her friend Related Data Home Medications Medication Instructions Recorded Confirmed vit#24-iron amino acid 1 tablet PO DAILY 05/01/23 05/01/23 chelat-folic acid 30 mg-975 mcg tablet Allergies Allergy/AdvReac Type Severity Reaction Status Date / Time No Known Allergies Allergy Verified 05/12/23 22:27 Review of Systems Review of Systems: Review of systems negative except what is documented in the HPI PMFSH Past Medical History Medical History Encounter for biopsy 2011 soft tissue of back--benign Encounter for IUD insertion (07/15/20) Encounter for IUD removal (04/07/21) Encounter for screening examination for sexually transmitted disease 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 Manic depression hypertension Seizure Surgical History Surgical History No history of previous surgery Family History Family History Mother Malignant tumor of cervix Other Malignant tumor of cervix maternal aunt Social History Social History Smoking status: Current every day smoker Tobacco type: e-cigarettes/vaping Alcohol intake: current Alcohol use details: 1 x month Substance use: never Substance use type: does not use Living arrangements: other Additional living arrangements comments: Occupation/Education: occupation 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 HEAD: Normocephalic, atraumatic. EYES: PERRLA and EOMI. ENT: Nares clear, no rhinorrhea or epistaxis. Mucous membranes moist. NECK: Supple. CHEST: Clear to auscultation. No respiratory distress. HEART: Regular rate and rhythm. ABDOMEN: Soft, nontender, nondistended. EXTREMITIES: Normal range of motion. No edema. SKIN: Warm, dry, no rash. NEURO: No focal deficits. Alert and oriented x3. PSYCH: Normal mood and affect. Course Course Emergency Course: Differential diagnosis includes but not limited to urinary tract infection, pyelonephritis, musculoskeletal pain, round ligament pain Vital Signs Vital signs: Vital Signs Temperature 36.7 C 05/12/23 22:20 Pulse Rate 77 05/12/23 22:20 Respiratory Rate 16 05/12/23 22:20 Blood Pressure 109/66 05/12/23 22:20 Pulse Oximetry 99 05/12/23 22:20 Oxygen Delivery Room Air 05/12/23 22:20 Temperature 36.7 C 05/12/23 22:20 Pulse Rate 74 05/13/23 00:25 Respiratory Rate 15 05/13/23 00:25 Blood Pressure 111/63 05/12/23 22:34 Pulse Oximetry 19 L 05/13/23 00:25 Oxygen Delivery Room Air 05/12/23 22:20 MDM - Abdominal Pain MDM Narrative Medical decision making narrative: Patient's urinalysis is negative for infection so no concern for pyelonephritis. Her CBC and CMP are also grossly unremarkable. No concern for intra-abdominal infection. Pain located left upper quadrant and radiates around to flank. No concern for torsion. heart tones pending then will plan for discharge with OB follow-up. Tylenol improved pain but did not resolve it. [id number] hear
[2023-05-13 02:29] VITALS: BP 118/66; PULSE 68; O2SAT 99
== END 2023-05-13 02:30 | disposition home or self-care (01) ==
PROVIDERS: Emergency Provider Emergency Medicine; PCP Family Medicine
DX: O26.892 Other specified pregnancy related conditions, second trimester (principal); R10.12 Left upper quadrant pain; O99.332 Smoking (tobacco) complicating pregnancy, second trimester; F17.219 Nicotine dependence, cigarettes, with unspecified nicotine-induced disorders; Z3A.14 14 weeks gestation of pregnancy
CPT/HCPCS: 36415; 80053; 81003; 81025; 83690; 85025; 96374; 99284; A9270; J2405

== ENCOUNTER 2023-06-25 10:15 | Observation (INO) | payer OTHER, SELFPAY ==
[2023-06-25 10:04] VITALS: BP 115/62; PULSE 148; RESP 20; TEMP 37.6; O2SAT 100
[2023-06-25 10:30] VITALS: BMI 20.5
[2023-06-25 10:34] VITALS: BP 111/66; PULSE 133
[2023-06-25 10:46] VITALS: TEMP 37.7
[2023-06-25] MEDS: ACETAMINOPHEN 500 MG TABLET 1000 MG PO (10:46)
[2023-06-25 11:00] VITALS: BP 102/54; PULSE 127
[2023-06-25 11:05] LABS: Appearance Urine Cloudy (Clear); Bacteria Urine 2+ /hpf; Bilirubin Urine Negative (Negative); Blood Urine Negative (Negative); Color Urine Yellow (Yellow); Glucose Urine UA Negative (Negative); Ketones Urine Trace mg/dL (Negative); Leukocyte Esterase Ur 2+ LEU/UL (NEGATIVE); Nitrate Urine Negative (Negative); Non Pathogenic Casts 0-2; Protein Urine Negative (Negative); RBC Urine 0-2 /hpf (0-2); Specific Grav Ur 1.015 (1.001-1.035); Squamous Epithelial Cell Urine Moderate /hpf (Few); Urobilinogen Urine 0.2 mg/dL (<2.0); WBC Urine 21-50 /hpf (0-3); pH Urine 6.5 (5.0-9.0)
[2023-06-25 11:14] LABS: Add Urine Microscopic? YES
[2023-06-25 11:15] VITALS: BP 107/57; PULSE 128
[2023-06-25 11:31] VITALS: BP 110/54; PULSE 119
[2023-06-25 11:38] LABS: Influenza A QL RT-PCR Negative (Negative); Influenza B QL RT-PCR Negative (Negative); RSV RNA, RT-PCR Negative (Negative); SARS-CoV-2 RNA PCR Positive (Negative)
--- NOTE | 2023-06-25 11:51 | PC.NURSE ---
called Dr. Sachin Diaz notified pt admission for back pain. UA result and Positive Covid result reported. Order received for medication. discharge to home when pt feels better.
[2023-06-25] MEDS: CYCLOBENZAPRINE HCL 10 MG TABLET PO (12:11)
--- NOTE | 2023-06-25 12:26 | PC.NURSE ---
called Dr. Sachin Diaz notified pt still in pain, flexeril orderr received.
--- NOTE | 2023-06-25 13:00 | PC.NURSE ---
Pt still have back pain but feels little better with flexeril. Called Dr. Sachin Diaz and demerol IM order received. pt refused demerol but requested PO Pain meds to go home. [place] [facility] Rx will be given to Pt in office. Pt feels okay to go home. Instruction given for quarantine for COVID. Pt verbalized understanding.
--- NOTE | 2023-06-25 16:08 | P.PNOB_ITS ---
OB - Triage/Final Diagnosis Visit Information Date of evaluation: 06/25/23 Reason for evaluation: other (back pain) Comments/Additional reasons for admission: I have assessed the risk for this patient, Cale Emerson, and determined that she would benefit from observation care. Evaluation Laboratory results: Laboratory Tests 06/25/23 10:50 Urine Color Yellow Urine Appearance Cloudy H Urine pH 6.5 Ur Specific [place] 1.015 Urine Protein Negative Urine Glucose (UA) Negative Urine Ketones Trace H Ur Blood (Man) Negative Urine Nitrate Negative Urine Bilirubin Negative Urine Urobilinogen 0.2 Ur Leukocyte Esterase 2+ H Urine RBC 0-2 Urine WBC 21-50 Ur Squamous Epith Cells Moderate Urine Bacteria 2+ H Urine Casts 0-2 Influenza A (RT-PCR) Negative Influenza B (RT-PCR) Negative RSV (RT-PCR) Negative SARS-CoV-2 RNA (RT-PCR) Positive A Vital signs: Vital Signs - 24 hr 06/25/23 10:04 06/25/23 10:46 06/25/23 10:34 Temperature 99.7 F H 99.8 F H Pulse Rate 148 H 133 H Respiratory Rate 20 Blood Pressure 115/62 111/66 Pulse Oximetry 100 Oxygen Delivery Room Air 06/25/23 11:00 06/25/23 11:15 06/25/23 11:31 Temperature Pulse Rate 127 H 128 H 119 H Respiratory Rate Blood Pressure 102/54 L 107/57 L 110/54 L Pulse Oximetry Oxygen Delivery
== END 2023-06-25 13:20 | disposition home or self-care (01) ==
PROVIDERS: Admitting Provider Obstetrics & Gynecology; PCP Family Medicine; Visit Provider Obstetrics & Gynecology
DX: O99.891 Other specified diseases and conditions complicating pregnancy (principal); M54.9 Dorsalgia, unspecified; Z3A.20 20 weeks gestation of pregnancy
CPT/HCPCS: 81001; 84112; 87086; 87088; 87637; A9270; G0378; G0379

== ENCOUNTER 2023-09-04 23:56 | Observation (INO) | payer OTHER, SELFPAY ==
--- NOTE | ~2023-09-04 | US_ITS ---
EXAMINATION: US OB limited DATE: 09/05/2023 08:05 INDICATION: Vaginal bleeding during third trimester TECHNIQUE: Real-time ultrasound of the pelvis was performed. The interpreting radiologist was not pre sent for the study. COMPARISON: None. FINDINGS: There is a single living fetus in vertex presentation. The placenta is posterior. The measu red cervical length is 3.8 cm. cardiac activity and movement are noted. heart rate is 151 beats per minute (bpm). The amniotic fluid index is subjectively normal. IMPRESSION: 1. Single living fetus in vertex presentation. 2. Normal-appearing placenta. Reviewed, dictated and finalized at location L. SED POULTRY GRADER
--- NOTE | ~2023-09-04 | US_ITS ---
EXAMINATION: US OB transvaginal INDICATION: Vaginal bleeding during third trimester TECHNIQUE: Real-time ultrasound of the pelvis was performed. The interpreting radiologist was not pre sent for the study. COMPARISON: None. FINDINGS: There is a single living fetus in vertex presentation. The placenta is posterior. The measu red cervical length is 3.8 cm. cardiac activity and movement are noted. heart rate is 151 beats per minute (bpm). The amniotic fluid index is subjectively normal. IMPRESSION: 1. Single living fetus in vertex presentation. 2. Normal-appearing placenta. Reviewed, dictated and finalized at location L. NG INSTRUCTOR
[2023-09-05] VITALS (20 sets, daily range): BP systolic 69–113; BP diastolic 33–74; PULSE 80–108; O2SAT 97; BMI 25.7
[2023-09-05 01:22] LABS: Basophils Absolute Auto 0.1 K/mm3 (0.0-0.1); Basophils Percent Auto 0.4 % (0.2-1.2); Eosinophils Absolute Auto 0.2 K/mm3 (0-0.3); Eosinophils Percent Auto 1.5 % (0-4.4); Hemoglobin 9.3 g/dL (12.0-15.0); Immature Granulocyte Absolute 0.15 K/mm3 (0.00-0.031); Immature Granulocyte Percent A 1.2 % (0-0.5); Lymphocytes Absolute Auto 2.77 K/mm3 (0.9-3.2); Mean Corpuscular HGB Conc 33.2 g/dl (32-36); Mean Corpuscular Hemoglobin 29.2 pg (26-34); Mean Corpuscular Volume 87.8 fl (80-100); Mean Platelet Volume 10.7 fl (7.4-10.4); Monocytes Absolute Auto 1.3 K/mm3 (0.1-0.6); Monocytes Percent Auto 10.5 % (2.6-8.5); Neutrophils Absolute Auto 8.1 K/mm3 (1.3-6.7); Neutrophils Percent Auto 64.4 % (45.5-73.1); Platelet Count Result 375 k/mm3 (150-375); Red Blood Count 3.19 M/mm3 (4.2-5.4); Red Cell Distribution Width 12.2 % (11.5-14.5); White Blood Count 12.6 K/mm3 (4.5-10.0)
[2023-09-05] MEDS: LACTATED RINGERS 1,000 ML 150 ML IV CONT (01:26)
--- NOTE | 2023-09-05 01:27 | OBADM ---
This patient, Cale Dominique, admitted to the OB room Labor/Delivery/Recovery 106 for observation. Patient/family oriented to hospital policies and general routines including ID bracelet, bed and alarms, visiting hours, pain management, procedures, bathroom and other care routines, personal items, smoking policy, room service/diet, and visiting hours. Patient/Family are encouraged to report perceived risks to care and to ask questions if they do not understand what they are told or what they should do.
[2023-09-05 01:56] LABS: Need Manual Microscopic Reviewed; Non Pathogenic Casts 0-2; RBC Urine 21-50 /hpf (0-2); Squamous Epithelial Cell Urine None seen /hpf (Few); WBC Urine 0-5 /hpf
[2023-09-05 01:57] LABS: Appearance Urine Clear (Clear); Bilirubin Urine Negative (Negative); Blood Urine 3+ (Negative); Glucose Urine UA Negative (Negative); Ketones Urine Negative (Negative); Leukocyte Esterase Ur 1+ LEU/UL (Negative); Nitrate Urine Negative (Negative); Protein Urine 1+ mg/dL (Negative); Specific Grav Ur 1.002 (1.001-1.035); Urobilinogen Urine 0.2 mg/dL (<2.0); pH Urine 7.5 (5.0-9.0)
[2023-09-05 01:58] LABS: Add Urine Microscopic? YES; Bacteria Urine Trace /hpf; Color Urine Light Red (Yellow)
--- NOTE | 2023-09-05 06:56 | PM.IMHP ---
H&P: HPI History of Present Illness Date/Time: 09/05/23 06:56 Chief Complaint: Vaginal bleeding at 39 half weeks gestation Narrative: 28-year-old female at 38 half weeks gestation with bleeding following intercourse. She has had intermittent bleeding with ultrasounds showing normal-appearing placenta etc.. She noted she had some contractions prior to admission with the absence stop. She has ultrasound scheduled this morning. The bleeding has since stopped PMFSH Past Medical History Medical History Encounter for biopsy 2011 soft tissue of back--benign Encounter for IUD insertion (07/15/20) Encounter for IUD removal (04/07/21) Encounter for screening examination for sexually transmitted disease 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 Manic depression hypertension Seizure Surgical History Surgical History No history of previous surgery Family History Family History Mother Malignant tumor of cervix Other Malignant tumor of cervix maternal aunt Social History Social History Smoking status: Current every day smoker Tobacco type: e-cigarettes/vaping Alcohol intake: current Alcohol use details: 1 x month Substance use: never Substance use type: does not use Living arrangements: other Additional living arrangements comments: Occupation/Education: occupation 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 Gender identity (if verbalized by the patient): Female Sexual Orientation (if Verbalized by the Patient): Bisexual Meds Home Medications and Allergies Home Medications Medication Instructions Recorded Confirmed Type vit#24-iron amino acid 1 tablet PO DAILY 05/01/23 05/01/23 History chelat-folic acid 30 mg-975 mcg tablet Allergies Allergy/AdvReac Type Severity Reaction Status Date / Time No Known Allergies Allergy Verified 05/12/23 22:27 Vital Signs Vital Signs - 24 hr 09/05/23 00:54 09/05/23 01:31 09/05/23 02:02 Pulse Rate 92 101 H 108 H Blood Pressure 99/54 L 100/50 L 88/33 L Pulse Oximetry 97 Oxygen Delivery 09/05/23 02:05 09/05/23 02:31 09/05/23 03:01 Pulse Rate 88 92 95 Blood Pressure 104/65 110/66 97/55 L Pulse Oximetry Oxygen Delivery 09/05/23 03:30 09/05/23 04:01 09/05/23 04:30 Pulse Rate 92 95 83 Blood Pressure 96/48 L 91/44 L 96/58 L Pulse Oximetry Oxygen Delivery 09/05/23 05:00 09/05/23 05:30 09/05/23 06:01 Pulse Rate 85 91 95 Blood Pressure 95/56 L 99/59 L 69/34 L Pulse Oximetry Oxygen Delivery 09/05/23 06:07 09/05/23 06:08 09/05/23 06:30 Pulse Rate 92 90 94 Blood Pressure 78/42 L 87/44 L 88/45 L Pulse Oximetry Oxygen Delivery 09/05/23 01:27 Pulse Rate Blood Pressure Pulse Oximetry Oxygen Delivery Room Air Exam Const: General: cooperative, healthy appearing and comfortable Nutritional Appearance: average body habitus Orientation/consciousness: oriented to person, oriented to place and oriented to time Resp: Effort & Inspection: normal respiratory effort Cardio: Rate: regular rate Rhythm: regular rhythm Heart sounds: S1 normal heart sound present and S2 normal heart sound present GI: Inspection: normal to inspection : External Female Exam: normal external appearance Speculum Exam - Vagina: normal appearance of the vagina Other: heart tones reassuring. No uterine contractions seen. No active bleeding seen H&P: Results Labs Labs: Short CBC 09/05/23 Range/Units 01:12 WBC 12.6 H (4.5-10.0) K/mm3 Hgb 9.3 L (12.0-15.0) g/dL Hct 28.0 L (37.0-47.0) % Plt Count 375 (150-375) k/mm3 Urine 09/05/23 Range/Units 01:12 Urine Color Light red H (Yellow)
--- NOTE | 2023-09-06 08:34 | PM.OBTRLD ---
OB - Triage/Final Diagnosis Visit Information Date of evaluation: 09/05/23 Reason for evaluation: other ( bleeding) Comments/Additional reasons for admission: I have assessed the risk for this patient, Cale Dominique, and determined that she would benefit from observation care. Evaluation Laboratory results: Laboratory Tests 09/05/23 01:12 WBC 12.6 H RBC 3.19 L Hgb 9.3 L Hct 28.0 L MCV 87.8 MCH 29.2 MCHC 33.2 RDW 12.2 Plt Count 375 MPV 10.7 H Immature Gran % (Auto) 1.2 H Neut % (Auto) 64.4 Lymph % (Auto) 22.0 [place] % (Auto) 10.5 H Eos % (Auto) 1.5 Baso % (Auto) 0.4 Lymph # (Auto) 2.77 [place] # (Auto) 1.3 H Eos # (Auto) 0.2 Baso # (Auto) 0.1 Abs Immat Gran (auto) 0.15 H Absolute Neuts (auto) 8.1 H Absolute Nucleated RBC 0.0 Nucleated RBC % 0.0 Urine Color Light red H Urine Appearance Clear Urine pH 7.5 Ur Specific [place] 1.002 Urine Protein 1+ H Urine Glucose (UA) Negative Urine Ketones Negative Ur Blood (Man) 3+ H Urine Nitrate Negative Urine Bilirubin Negative Urine Urobilinogen 0.2 Add Ur Microanalysis Reviewed Leukocyte Esterase Rfl 1+ H Urine RBC 21-50 H Urine WBC 0-5 Ur Squamous Epith Cells None seen Urine Bacteria Trace Urine Casts 0-2 Blood Type O Positive Antibody Screen Negative Vital signs: Vital Signs - 24 hr 09/05/23 08:45 Pulse Rate 82 Blood Pressure 110/74
== END 2023-09-05 09:35 | disposition home or self-care (01) ==
PROVIDERS: Admitting Provider Obstetrics & Gynecology; PCP Family Medicine; Visit Provider Obstetrics & Gynecology
DX: O46.93 Antepartum hemorrhage, unspecified, third trimester (principal); O99.333 Smoking (tobacco) complicating pregnancy, third trimester; F17.290 Nicotine dependence, other tobacco product, uncomplicated; Z3A.39 39 weeks gestation of pregnancy; Z79.899 Other long term (current) drug therapy
CPT/HCPCS: 36415; 76815; 76817; 81001; 85025; 86850; 86900; 86901; 96360; 96361; G0378; G0379; J7120

== ENCOUNTER 2023-10-06 12:55 | Emergency (ER) | payer OTHER, SELFPAY ==
[2023-10-06 13:06] VITALS: BP 132/84; PULSE 90; RESP 16; TEMP 36.9; O2SAT 100
--- NOTE | 2023-10-06 13:10 | ED.EYEPROB ---
HPI - Eye Problem General Chief complaint: Eye Problems Stated complaint: EYES ITCHING/REDNESS Source: patient, RN notes reviewed and old records reviewed Mode of arrival: ambulatory Limitations: no limitations History of Present Illness HPI Narrative: 28-year-old female presents to [facility] with complaints of bilateral eye irritation and itching this started a couple days ago. Patient states is 9 months was not sure what she could take for 2 for eyes. Patient denies discharge, pain, seen resting. Related Data Home Medications Medication Instructions Recorded Confirmed vit#24-iron amino acid 1 tablet PO DAILY 05/01/23 10/06/23 chelat-folic acid 30 mg-975 mcg tablet Allergies Allergy/AdvReac Type Severity Reaction Status Date / Time No Known Allergies Allergy Verified 10/06/23 13:15 Review of Systems Constitutional: Constitutional: Reports no additional constitutional complaints, Denies body ache(s), Denies chills, Denies fatigue, Denies fever(s) and Denies headache(s) Eyes: Eyes: Reports as per HPI, Denies blurry vision, Denies change in vision and Denies photophobia Comments: Itchy irritated eyes ENT: Reports system reviewed and no additional complaints, except as documented, Denies vertigo, Denies dizziness, Denies ear discharge, Denies otalgia, Denies facial pain, Denies headache(s), Denies nasal congestion, Denies nasal discharge, Denies sinus pain, Denies sinus pressure and Denies sore throat Cardiovascular: Cardiovascular: Reports no additional cardiovascular complaints, Denies chest pain, Denies chest pain at rest, Denies rapid heart rate and Denies dyspnea Respiratory: Respiratory: Reports no additional respiratory complaints, Denies chest congestion, Denies cough, Denies pain on inspiration, Denies pain with cough and Denies dyspnea Gastrointestinal: Gastrointestinal: Denies abdominal pain, Denies diarrhea, Denies nausea and Denies vomiting Integumentary/Breasts: Skin/Breast: Denies rash Neurologic: Reports system reviewed and no additional complaints, except as documented, Denies vertigo, Denies dizziness and Denies headache(s) Endocrine: Endocrine: Denies fatigue PMFSH Past Medical History Medical History Encounter for biopsy 2011 soft tissue of back--benign Encounter for IUD insertion (07/15/20) Encounter for IUD removal (04/07/21) Encounter for screening examination for sexually transmitted disease 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 Manic depression hypertension Seizure Surgical History Surgical History No history of previous surgery Family History Family History Mother Malignant tumor of cervix Other Malignant tumor of cervix maternal aunt Social History Social History Smoking status: Current every day smoker Tobacco type: e-cigarettes/vaping Alcohol intake: current Alcohol use details: 1 x month Substance use: never Substance use type: does not use Living arrangements: other Additional living arrangements comments: Occupation/Education: occupation 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 There is no relevant family history pertinent to the patient complaint. Exam Const: General: cooperative, healthy appearing, no acute distress and well nourished Nutritional Appearance: well nourished Orientation/consciousness: patient oriented x3 Limitations: no limitations HENMT: Head: normal to inspection and normocephalic Ears:
== END 2023-10-06 13:19 | disposition home or self-care (01) ==
PROVIDERS: Emergency Provider Registered Nurse
DX: O99.891 Other specified diseases and conditions complicating pregnancy (principal); Z3A.00 Weeks of gestation of pregnancy not specified; H10.13 Acute atopic conjunctivitis, bilateral; F17.290 Nicotine dependence, other tobacco product, uncomplicated
CPT/HCPCS: 99213; G0463

== ENCOUNTER 2023-10-17 19:52 | Inpatient (IN) | payer OTHER, SELFPAY ==
[2023-10-17] VITALS (19 sets, daily range): BP systolic 115–194; BP diastolic 61–151; PULSE 92–121; TEMP 37.1; O2SAT 98–100; BMI 27.7
--- NOTE | 2023-10-17 17:09 | OBADM ---
This patient, Cale Dominique, admitted to the OB room OB Post 116 for observation. Patient/family oriented to hospital policies and general routines including ID bracelet, bed and alarms, visiting hours, pain management, procedures, bathroom and other care routines, personal items, smoking policy, room service/diet, and visiting hours. Patient/Family are encouraged to report perceived risks to care and to ask questions if they do not understand what they are told or what they should do.
[2023-10-17 17:26] LABS: Appearance Urine Clear (Clear); Bacteria Urine None Seen /hpf; Bilirubin Urine Negative (Negative); Blood Urine Negative (Negative); Color Urine Yellow (Yellow); Glucose Urine UA Negative (Negative); Ketones Urine Negative (Negative); Leukocyte Esterase Ur 1+ LEU/UL (Negative); Nitrate Urine Negative (Negative); Non Pathogenic Casts 0-2; Protein Urine Negative (Negative); RBC Urine 0-2 /hpf (0-2); Specific Grav Ur 1.008 (1.001-1.035); Squamous Epithelial Cell Urine None Seen /hpf (Few); pH Urine 7.5 (5.0-9.0)
[2023-10-17 17:34] LABS: Add Urine Microscopic? YES
[2023-10-17 20:39] LABS: Basophils Absolute Auto 0.1 K/mm3 (0.0-0.1); Basophils Percent Auto 0.5 % (0.2-1.2); Eosinophils Absolute Auto 0.1 K/mm3 (0-0.3); Hematocrit 33.4 % (37.0-47.0); Hemoglobin 10.6 g/dL (12.0-15.0); Immature Granulocyte Absolute 0.22 K/mm3 (0.00-0.031); Immature Granulocyte Percent A 1.5 % (0-0.5); Lymphocytes Absolute Auto 2.92 K/mm3 (0.9-3.2); Lymphocytes Percent Auto 20.3 % (18.3-44.2); Mean Corpuscular HGB Conc 31.7 g/dl (32-36); Mean Corpuscular Hemoglobin 26.7 pg (26-34); Mean Corpuscular Volume 84.1 fl (80-100); Mean Platelet Volume 11.2 fl (7.4-10.4); Monocytes Absolute Auto 1.5 K/mm3 (0.1-0.6); Monocytes Percent Auto 10.7 % (2.6-8.5); Neutrophils Absolute Auto 9.5 K/mm3 (1.3-6.7); Platelet Count Result 438 k/mm3 (150-375); Red Blood Count 3.97 M/mm3 (4.2-5.4); Red Cell Distribution Width 13.4 % (11.5-14.5); White Blood Count 14.4 K/mm3 (4.5-10.0)
--- NOTE | 2023-10-17 20:48 | ADMGEN ---
This patient, Cale Dominique, was admitted to Labor/Delivery/Recovery 106-00. Patient/family oriented to hospital policies and general routines including ID bracelet, bed and alarms, visiting hours, pain management, procedures, bathroom and other care routines, personal items, smoking policy, room service/diet, and visiting hours. Information on how to activate the Rapid Response Team has been discussed. Patient/Family are encouraged to report perceived risks to care and to ask questions if they do not understand what they are told or what they should do.
[2023-10-17] MEDS: LACTATED RINGERS 1,000 ML 125 ML IV CONT ×2 (20:51→23:30)
[2023-10-17] MEDS: AMPICILLIN 2 GM/NS 100 ML 2 GM/100 ML BAG IVPB (20:52)
[2023-10-17 21:33] LABS: HIV 1/2 Ab P24 Ag Result Negative (Negative)
[2023-10-18] VITALS (192 sets, daily range): BP systolic 73–194; BP diastolic 25–159; PULSE 85–204; RESP 16–18; TEMP 36–37.3; O2SAT 82–100
--- NOTE | 2023-10-18 00:11 | WPDANESEPP ---
Anes - Eval Pre Procedure Procedure: labor epidural Date/Time: 10/18/23 00:11 Pre Op Diagnosis: contractions Patient Data Age: 28 Gender: F Height: 1.6 m Weight: 71 kg Last Vital Signs Temp 36.5 C 10/18/23 00:10 Pulse 118 H 10/18/23 00:10 BP 132/82 10/18/23 00:10 Pulse Ox 100 10/18/23 00:11 O2 Del Method Room Air 10/17/23 17:09 Allergies Allergy/AdvReac Type Severity Reaction Status Date / Time No Known Allergies Allergy Verified 10/17/23 20:50 Home Medications Medication Instructions Recorded Confirmed Type vit#24-iron amino acid 1 tablet PO DAILY 05/01/23 10/17/23 History chelat-folic acid 30 mg-975 mcg tablet olopatadine 0.1 % eye drops 1 drp EACH EYE BID #5 mL 10/06/23 10/17/23 Rx (Pataday Twice Daily Relief) Laboratory Tests 10/17/23 10/17/23 17:12 20:30 WBC 14.4 H K/mm3 (4.5-10.0) RBC 3.97 L M/mm3 (4.2-5.4) Hgb 10.6 L g/dL (12.0-15.0) Hct 33.4 L % (37.0-47.0) MCV 84.1 fl (80-100) MCH 26.7 pg (26-34) MCHC 31.7 L g/dl (32-36) RDW 13.4 % (11.5-14.5) Plt Count 438 H k/mm3 (150-375) MPV 11.2 H fl (7.4-10.4) Immature Gran % (Auto) 1.5 H % (0-0.5) Neut % (Auto) 66.0 % (45.5-73.1) Lymph % (Auto) 20.3 % (18.3-44.2) [place] % (Auto) 10.7 H % (2.6-8.5) Eos % (Auto) 1.0 % (0-4.4) Baso % (Auto) 0.5 % (0.2-1.2) Lymph # (Auto) 2.92 K/mm3 (0.9-3.2) [place] # (Auto) 1.5 H K/mm3 (0.1-0.6) Eos # (Auto) 0.1 K/mm3 (0-0.3) Baso # (Auto) 0.1 K/mm3 (0.0-0.1) Abs Immat Gran (auto) 0.22 H K/mm3 (0.00-0.031) Absolute Neuts (auto) 9.5 H K/mm3 (1.3-6.7) Absolute Nucleated RBC 0.000 K/mm3 (0.0-0.012) Nucleated RBC % 0.0 % (0.0-0.2) Urine Color Yellow (Yellow) Urine Appearance Clear (Clear) Urine pH 7.5 (5.0-9.0) Ur Specific [place] 1.008 (1.001-1.035) Urine Protein Negative mg/dL (Negative) Urine Glucose (UA) Negative mg/dL (Negative) Urine Ketones Negative mg/dL (Negative) Ur Blood (Man) Negative (Negative) Urine Nitrate Negative (Negative) Urine Bilirubin Negative (Negative) Urine Urobilinogen 1.0 mg/dL (<2.0) Leukocyte Esterase Rfl 1+ H HERMAN/UL (Negative) Urine RBC 0-2 /hpf (0-2) Urine WBC 6-10 H /hpf (0-3) Ur Squamous Epith Cells None seen /hpf (Few) Urine Bacteria None seen /hpf Urine Casts 0-2 RPR Pending HIV 1&2 Ab/P24 Ag 4thGn Negative (Negative) Blood Type O Positive Antibody Screen Negative Patient hx anesthesia problems: none Family hx anesthesia problems: none Results Review: All pre-operative results and documents have been reviewed as part of the pre-operative evaluation. [facility] Past Medical History Medical History Encounter for biopsy 2011 soft tissue of back--benign Encounter for IUD insertion (07/15/20) Encounter for IUD removal (04/07/21) Encounter for screening examination for sexually transmitted disease 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 Manic depression hypertension Seizure Surgical History Surgical History No history of previous surgery Family History Family History Mother Malignant tumor of cervix Other Malignant tumor of cervix maternal aunt Social History Social History Smoking status: Former smoker Tobacco type: e-cigarettes/vaping Alcohol intake: current Alcohol use details: 1 x month Substance use: never Substance use type: does not use Do You Feel Safe in your Home?:
[2023-10-18] MEDS: LACTATED RINGERS 1,000 ML 125 ML IV CONT ×2 (00:34→06:58)
[2023-10-18] MEDS: PHENYLEPHRINE 1,000 MCG/10 ML SYRINGE 100 MCG IV PUSH ×2 (01:09→02:18)
[2023-10-18] MEDS: diazePAM INJ (*CRX) 10 MG/2 ML SYRINGE 5 MG IV PUSH (01:20)
[2023-10-18] MEDS: ONDANSETRON INJ 4 MG/2 ML VIAL IV PUSH (02:20)
[2023-10-18] MEDS: AMPICILLIN 1 GM/NS 50 ML 1 GM/50 ML BAG IVPB ×2 (03:37→08:12)
--- NOTE | 2023-10-18 04:30 | PM.IMHP ---
H&P: HPI History of Present Illness Date/Time: 10/18/23 04:30 Chief Complaint: ruptured membranes in labor at 36 and 5 7th weeks Narrative: 28-year-old 3 para 1 /menstrual period was 01/15/2023, EDC is 11/09/2023, presents at 36-,5/7 weeks gestation active labor. She is positive for group B strep is being treated as such. [facility] Past Medical History Medical History Encounter for biopsy 2011 soft tissue of back--benign Encounter for IUD insertion (07/15/20) Encounter for IUD removal (04/07/21) Encounter for screening examination for sexually transmitted disease 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 Manic depression hypertension Seizure Surgical History Surgical History No history of previous surgery Family History Family History Mother Malignant tumor of cervix Other Malignant tumor of cervix maternal aunt Social History Social History Smoking status: Former smoker Tobacco type: e-cigarettes/vaping Alcohol intake: current Alcohol use details: 1 x month Substance use: never Substance use type: does not use Do You Feel Safe in your Home?: No Lack of Transportation: No Lack of Food: Never True Current Housing: I Have Housing Concerned About Future Housing: No Difficulty Paying Gas/Electric Bills: No Difficulty Paying for Meds: No Currently Unemployed: No Education: High School Diploma/GED Difficulty w/ Childcare or Family Care: No Living arrangements: other Additional living arrangements comments: Occupation/Education: occupation 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 Gender identity (if verbalized by the patient): Female Sexual Orientation (if Verbalized by the Patient): Bisexual Spiritual care concerns: No Meds Home Medications and Allergies Home Medications Medication Instructions Recorded Confirmed Type vit#24-iron amino acid 1 tablet PO DAILY 05/01/23 10/17/23 History chelat-folic acid 30 mg-975 mcg tablet olopatadine 0.1 % eye drops 1 drp EACH EYE BID #5 mL 10/06/23 10/17/23 Rx (Pataday Twice Daily Relief) Allergies Allergy/AdvReac Type Severity Reaction Status Date / Time No Known Allergies Allergy Verified 10/17/23 20:50 Vital Signs Vital Signs - 24 hr 10/17/23 17:02 10/17/23 18:45 10/17/23 19:00 Temperature Pulse Rate 92 115 H 106 H Respiratory Rate Blood Pressure 124/77 134/82 124/75 Pulse Oximetry Oxygen Delivery Oxygen Flow Rate 10/17/23 19:15 10/17/23 19:30 10/17/23 21:11 Temperature Pulse Rate 121 H 95 106 H Respiratory Rate Blood Pressure 138/81 135/68 136/91 H Pulse Oximetry 100 Oxygen Delivery Oxygen Flow Rate 10/17/23 21:40 10/17/23 21:57 10/17/23 22:00 Temperature 98.8 F Pulse Rate 110 H 93 104 H Respiratory Rate Blood Pressure 140/71 115/77 126/86 Pulse Oximetry Oxygen Delivery Oxygen Flow Rate 10/17/23 22:22 10/17/23 22:24 10/17/23 22:25 Temperature Pulse Rate 120 H 113 H 111 H Respiratory Rate Blood Pressure 194/151 H 142/94 H 122/82 Pulse Oximetry Oxygen Delivery Oxygen Flow Rate 10/17/23 22:30 10/17/23 22:45 10/17/23 23:00 Temperature Pulse Rate 98 110 H 112 H Respiratory Rate Blood Pressure 127/86 125/84 158/76 H Pulse Oximetry Oxygen Delivery Oxygen Flow Rate 10/17/23 23:15 10/17/23 23:28 10/17/23 23:30 Temperature Pulse Rate 107 H 106 H Respiratory Rate Blood Pressure 124/77 124/76 Pulse Oximetry 98 Oxygen Delivery Oxygen Flow Rate 10/17/23 23:46 10/18/23 00:00 10/18/23 00:01 Temperature Pulse Rate 102 H 97 Respiratory Rate Blood Pressure 137/61 134/77 Pulse Oximetry 82 L O
[2023-10-18] MEDS: OXYTOCIN 30 UNITS/NS 500 ML 30 UNITS/500 ML BAG IV CONT (04:45)
[2023-10-18] MEDS: FAMOTIDINE 20 MG/2 ML VIAL IV PUSH (04:45)
--- NOTE | 2023-10-18 08:29 | PM.OBPNLAB ---
Pain Control Date/time seen: 10/18/23 08:29 Pain control: tolerating well and epidural Pelvic Exam Dilation (cm): 7 Effacement (%): 100 station: -1 Amniotic membrane status: Leaking Contractions Monitor mode: External
--- NOTE | 2023-10-18 09:07 | PM.OBPRVD ---
OB - Vaginal Delivery Note Procedure Delivery date: 10/18/23 Events: Premature Rupture of Membranes Induction method: None Delivery augmentation: Pitocin Delivery monitor: External FHT and Internal Uterine Route of delivery: Episiotomy description: None Laceration Description: None Specimen: Yes (Placenta) Quantitative Blood Loss (ml): 161 Anesthesia type: Epidural Disposition: Floor Complications: No immediate complications Baby Date of : 10/18/23 Time of : 08:58 Weeks of gestation at delivery: 36 Infant gender: Female presentation: vertex position: Right Occiput Anterior Placenta delivery description: Spontaneous Cord Vessel Description: 3 Vessels score one minute: 8 score five minutes: 9
--- NOTE | 2023-10-18 09:09 | PM.DS ---
DS: Admitting Diagnosis Discharge Date 10/20/2023 Admitting Diagnosis pre term with membranes/ positive group B strep DS: Discharge Diagnosis Discharge Diagnosis (1) labor with term delivery: Code(s): O60.20X0 - Term delivery with labor, unspecified trimester, not applicable or unspecified Status: Acute (2) Group beta Strep positive: Code(s): B95.1 - Streptococcus, group B, as the cause of diseases classified elsewhere Status: Acute DS: Summary Hospital Course Reason for hospitalization: patient was admitted spontaneous rupture membranes positive group B strep at 36 and 5 7th weeks gestation. She underwent spontaneous vaginal delivery 10/18/2023 with 3 doses of ampicillin. Hospital Course: Spur course remarkable. She remained afebrile. She was up, eating regular diet, ambulating, voiding without difficulty, generally without complaints. Time Spent with Patient Time attestation: Total time spent providing and/or coordinating discharge services: Exam Const: General: cooperative, healthy appearing and comfortable Nutritional Appearance: average body habitus Orientation/consciousness: oriented to person, oriented to place and oriented to time HENMT: Head: normal to inspection Resp: Effort & Inspection: normal respiratory effort Cardio: Rate: regular rate Rhythm: regular rhythm Heart sounds: S1 normal heart sound present and S2 normal heart sound present GI: Inspection: normal to inspection ( Fundus firm below umbilicus) DS: Data Data Completed and Pending Labs on day of discharge: Labs from last 24 hours 10/17/23 10/17/23 20:30 17:12 WBC 14.4 H RBC 3.97 L Hgb 10.6 L Hct 33.4 L MCV 84.1 MCH 26.7 MCHC 31.7 L RDW 13.4 Plt Count 438 H MPV 11.2 H Immature Gran % (Auto) 1.5 H Neut % (Auto) 66.0 Lymph % (Auto) 20.3 [place] % (Auto) 10.7 H Eos % (Auto) 1.0 Baso % (Auto) 0.5 Lymph # (Auto) 2.92 [place] # (Auto) 1.5 H Eos # (Auto) 0.1 Baso # (Auto) 0.1 Abs Immat Gran (auto) 0.22 H Absolute Neuts (auto) 9.5 H Absolute Nucleated RBC 0.000 Nucleated RBC % 0.0 Urine Color Yellow Urine Appearance Clear Urine pH 7.5 Ur Specific [place] 1.008 Urine Protein Negative Urine Glucose (UA) Negative Urine Ketones Negative Ur Blood (Man) Negative Urine Nitrate Negative Urine Bilirubin Negative Urine Urobilinogen 1.0 Leukocyte Esterase Rfl 1+ H Urine RBC 0-2 Urine WBC 6-10 H Ur Squamous Epith Cells None seen Urine Bacteria None seen Urine Casts 0-2 RPR Pending HIV 1&2 Ab/P24 Ag 4thGn Negative Blood Type O Positive Antibody Screen Negative Discharge Plan Discharge Attending physician on discharge: Theo Lyons Discharging Clinician: Theo Lyons Patient Disposition: Home, Self-Care Activity: november shower and pelvic rest Diet: heart healthy Wound Care Instructions: follow printed instructions Patient Instructions: Antibiotic Form Stand Alone Forms: General Discharge Information Follow-up/Referrals: Theo Lyons MD [Physician] - Discharge Medications: Continued PNV no.[id number] acid 30-975 mg-mcg Tablet 1 tablet PO DAILY olopatadine [Pataday Twice Daily Relief] 0.1 % drops 1 drp EACH EYE BID Qty: 5 0RF Rx Instructions: separate doses by at least 6-8 hours Date of admission: 10/17/23 19:52 Primary Care Provider: PHYSICIAN,RN CARDIOVASCULAR Admitting Provider: Theo Lyons Attending physician on admission: Theo Lyons Condition: Stable
[2023-10-18] MEDS: OXYTOCIN 30 UNITS/NS 500 ML 30 UNITS/500 ML BAG 125 UNITS IV CONT (09:32)
[2023-10-18] MEDS: WITCH HAZEL 40 PADS 1 PAD TOPICAL (11:20)
--- NOTE | 2023-10-18 11:42 | OBPPTRN ---
1135-Patient transferred to post room # via ( ). Support person present. Oriented to unit, room, information board, rooming in, admission packet and security measures. Patient verbalizes understanding.
--- NOTE | 2023-10-18 11:50 | OBPPTRN ---
1135-Patient transferred to post room #281 via wheelchair. Support person present. Oriented to unit, room, information board, rooming in, admission packet and security measures. Patient verbalizes understanding.
[2023-10-18 12:39] LABS: Rapid Plasma Reagin Non-Reactive (NonReactive)
[2023-10-18] MEDS: ACETAMINOPHEN 325 MG TABLET 650 MG PO (13:58)
--- NOTE | 2023-10-18 15:32 | PC.NURSE ---
[id number] Introductions were made, then consulted with patient to assess needs related to as it was reported to me that mother is now. Upon entering the room mother is burping . Discussed with mother her?plans to feed?her alternating breast and bottle, the?experience so far, and that she had low milk supply last time. Encouraged mother to consider pumping for comfort and nipple stretching/stimulation to protect her milk supply when infant receives a bottle. Patient shared that her nurse is getting a pump for her now. Reported to the Primary RN.
[2023-10-19 05:15] LABS: Hematocrit 24.9 % (37.0-47.0)
--- NOTE | 2023-10-19 06:40 | PM.OBPNVD ---
OB - PN: Subj Subjective Date/time seen: 10/19/23 06:40 Patient comments: no complaints and pain well controlled baby status: doing well OB - PN: Obj Data Labs 10/19/23 05:10 Labs: Laboratory Results - last 24 hr 10/17/23 10/19/23 20:30 05:10 Hgb 8.0 L Hct 24.9 L RPR Non-reactive OB - PN A/P Plan day: 1 Plan: routine care Comments: Begin supplementation his hemoglobin 8 point Time Spent With Patient Time: Total time spent is greater than 50% in coordination of care (as documented) at patient's floor/unit and/or counseling patient: Time with patient: less than 15 minutes Exam Const: General: cooperative, healthy appearing and comfortable Nutritional Appearance: average body habitus Orientation/consciousness: oriented to person, oriented to place and oriented to time Resp: Effort & Inspection: normal respiratory effort Cardio: Rate: regular rate Rhythm: regular rhythm Heart sounds: S1 normal heart sound present and S2 normal heart sound present GI: Inspection: normal to inspection (Fundus firm below the umbilicus)
[2023-10-19 07:50] VITALS: PULSE 98; RESP 18; O2SAT 98
[2023-10-19 08:08] VITALS: BP 106/62; PULSE 98; RESP 18; TEMP 36.6; O2SAT 98
[2023-10-19] MEDS: ACETAMINOPHEN 325 MG TABLET 650 MG PO ×2 (08:45→16:06)
[2023-10-19] MEDS: DOCUSATE SODIUM 100 MG CAPSULE PO ×2 (08:47→16:05)
[2023-10-19] MEDS: POLYSACCHARIDE IRON COMPLEX 150 MG CAPSULE PO ×2 (08:47→16:05)
[2023-10-19] MEDS: MULTIVIT/MIN/PREN/FOL AC/IRON TABLET 1 TAB PO (08:47)
--- NOTE | 2023-10-19 18:28 | WPDANLDPN2 ---
Anes-Prog Note L&D Date/Time: 10/19/23 18:28 Neuro status: Neuro function grossly intact. Cardiovascular status: normal Respiratory status: normal Airway patency: baseline Mental status: baseline Post-Op hydration status: normal Vital Signs: Last Vital Signs Temp 36.6 C 10/19/23 08:08 Pulse 98 10/19/23 08:08 Resp 18 10/19/23 08:08 BP 106/62 10/19/23 08:08 Pulse Ox 98 10/19/23 08:08 O2 Del Method Room Air 10/19/23 07:50 O2 Flow Rate 15 10/18/23 01:41 Pain score (VAS): 0 Post-procedural complaints: none Patient feedback: Patient satisfied with anesthetic care.
[2023-10-19 19:00] VITALS: BP 121/77; PULSE 85; RESP 18; TEMP 36.3; O2SAT 99
--- NOTE | 2023-10-20 01:45 | PC.NURSE ---
10/20/2023 at 0035 I entered this patient's room and her significant other had the couch pulled up right next to the patient and it was difficult to tell if he was on the couch or patient's bed (somewhere in between). I woke mother and told her I need baby for an assessment and plan on doing baby's car seat challenge as previously discussed. Patient states understanding. I then asked Cale if her significant other would get on the couch because I am in fear of him falling between the patient's bed and his couch. Oh he's okay. I again stressed to Cale I do not want her significant other to fall to the floor. Modern Dancer replied again, Oh, he's okay. I then took baby and mother states she wants me to keep baby until she calls out for her in the morning. I just want to get some sleep.
--- NOTE | 2023-10-20 07:28 | PM.OBPNVD ---
OB - PN: Subj Subjective Date/time seen: 10/20/23 07:28 Patient comments: no complaints and pain well controlled baby status: doing well OB - PN: Obj Data Labs 10/19/23 05:10 OB - PN A/P Plan day: 2 Plan: routine care, discharge home and follow up 6 weeks Time Spent With Patient Time: Total time spent is greater than 50% in coordination of care (as documented) at patient's floor/unit and/or counseling patient: Time with patient: less than 15 minutes Exam Const: General: cooperative, healthy appearing and comfortable Nutritional Appearance: average body habitus Orientation/consciousness: oriented to person, oriented to place and oriented to time Resp: Effort & Inspection: normal respiratory effort Cardio: Rate: regular rate Rhythm: regular rhythm Heart sounds: S1 normal heart sound present and S2 normal heart sound present GI: Inspection: normal to inspection ( fundus firm below umbilicus)
[2023-10-20 07:37] VITALS: BP 124/76; PULSE 100; RESP 20; TEMP 36.6; O2SAT 100
[2023-10-20] MEDS: MULTIVIT/MIN/PREN/FOL AC/IRON TABLET 1 TAB PO (09:17)
[2023-10-20] MEDS: POLYSACCHARIDE IRON COMPLEX 150 MG CAPSULE PO (09:17)
[2023-10-20] MEDS: DOCUSATE SODIUM 100 MG CAPSULE PO (09:18)
[2023-10-20] MEDS: MEASLES,MUMPS,RUBELLA VACCINE 0.5 ML VIAL SUB-Q (09:29)
[2023-10-22 10:11] VITALS: BP 123/75; PULSE 105; RESP 18; TEMP 37.1; O2SAT 100
== END 2023-10-20 10:55 | disposition home or self-care (01) | DRG 807 ==
LOC: ANHLDR 10-19 11:41 → ANHOB2 10-19 11:41
PROVIDERS: Admitting Provider Obstetrics & Gynecology; Visit Provider Obstetrics & Gynecology
DX: O99.824 Streptococcus B carrier state complicating childbirth (principal); Z37.0 Single live birth; O42.913 Preterm premature rupture of membranes, unspecified as to length of time between rupture and onset of labor, third trimester; Z3A.36 36 weeks gestation of pregnancy; Z87.891 Personal history of nicotine dependence; O60.14X0 Preterm labor third trimester with preterm delivery third trimester, not applicable or unspecified
CPT/HCPCS: 36415; 81001; 84112; 85014; 85018; 85025; 86592; 86703; 86850; 86900; 86901; 87086; 88307; 90710; A9270; G0432; J0290; J2371; J2405; J2590; J2795; J3360; J7120

== ENCOUNTER 2023-10-26 20:31 | Emergency (ER) | payer OTHER, SELFPAY ==
[2023-10-26 20:43] VITALS: BP 118/79; PULSE 79; RESP 16; TEMP 36.8; O2SAT 100
[2023-10-26 20:50] VITALS: BP 106/80; PULSE 80; RESP 19; TEMP 37.2; O2SAT 99
[2023-10-26 20:55] VITALS: O2SAT 98
[2023-10-26 20:58] VITALS: PULSE 81
--- NOTE | 2023-10-26 21:06 | ECG_ITS ---
SEE SCANNED COPY FOR CONFIRMED REPORT MTDD
--- NOTE | 2023-10-26 21:30 | ED.SEIZURE ---
HPI - Seizure General Chief Complaint: Seizure Stated Complaint: sz 20 minutes 8 days Time Seen by Provider: 10/26/23 21:01 Source: patient Limitations: no limitations History of Present Illness HPI Narrative: 28-year-old female presenting for a seizure. Reportedly lasting about 20 minutes. She has stress-induced seizures. She delivered a baby 8 days ago. Has had no complications since. Not breast-feeding is not taking medicine for stress-induced seizures because she was told not to. Currently asymptomatic. Did not have preeclampsia during the . Seizure History: Yes (2 weeks ago) Related Data Home Medications Medication Instructions Recorded Confirmed vit#24-iron amino acid 1 tablet PO DAILY 05/01/23 10/17/23 chelat-folic acid 30 mg-975 mcg tablet Allergies Allergy/AdvReac Type Severity Reaction Status Date / Time No Known Allergies Allergy Verified 10/17/23 20:50 Review of Systems Review of Systems: All systems reviewed & are unremarkable except as noted in HPI and below PMFSH Past Medical History Medical History Encounter for biopsy 2011 soft tissue of back--benign Encounter for IUD insertion (07/15/20) Encounter for IUD removal (04/07/21) Encounter for screening examination for sexually transmitted disease 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 Manic depression hypertension Seizure Surgical History Surgical History No history of previous surgery Family History Family History Mother Malignant tumor of cervix Other Malignant tumor of cervix maternal aunt Social History Social History Smoking status: Former smoker Tobacco type: e-cigarettes/vaping Alcohol intake: current Alcohol use details: 1 x month Substance use: never Substance use type: does not use Do You Feel Safe in your Home?: No Lack of Transportation: No Lack of Food: Never True Current Housing: I Have Housing Concerned About Future Housing: No Difficulty Paying Gas/Electric Bills: No Difficulty Paying for Meds: No Currently Unemployed: No Education: High School Diploma/GED Difficulty w/ Childcare or Family Care: No Living arrangements: other Additional living arrangements comments: Occupation/Education: occupation 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 Eyes: Pupils equal, round, and reactive to light. Neck: Supple, no tracheal deviation, no JVD. ENMT: Mucous membranes moist Cardiovascular: S1, S2 auscultated. No murmurs, rubs, or gallops. No S3/S4. Normal Distal pulses. No peripheral edema. Respiratory: Lung sounds equal. No wheezes, rales, or rhonchi. Gastrointestinal: Abdomen was soft and non-tender. Non-distended. No rebound or guarding. Genitourinary: Deferred Musculoskeletal: Normal muscle tone and bulk. No obvious deformities or tenderness over extremities. Skin: No rashes. Neurological: Strength 5/5 in extremities. Cranial nerves I-XII grossly intact. Distal sensation intact. Mental Status: Awake, alert and oriented x3. Follows commands Course Vital Signs Vital signs: Vital Signs Temperature 36.8 C 10/26/23 20:43 Pulse Rate 79 10/26/23 20:43 Respiratory Rate 16 10/26/23 20:43 Blood Pressure 118/79 10/26/23 20:43 Pulse Oximetry 100 10/26/23 20:43 Temperature 37.2 C 10/26/23 20:50 Pulse Rate 81 10/26/23 20:58 Respiratory Rate 19 10/26/23 20:50 Blood Pressure 106/80 10/26/23 20:50 Pu
[2023-10-26 21:31] LABS: Basophils Percent Auto 0.6 % (0.2-1.2); Eosinophils Absolute Auto 0.2 K/mm3 (0-0.3); Eosinophils Percent Auto 2.6 % (0-4.4); Hematocrit 31.8 % (37.0-47.0); Immature Granulocyte Absolute 0.02 K/mm3 (0.00-0.031); Immature Granulocyte Percent A 0.3 % (0-0.5); Lymphocytes Absolute Auto 2.67 K/mm3 (0.9-3.2); Lymphocytes Percent Auto 38.1 % (18.3-44.2); Mean Corpuscular HGB Conc 31.4 g/dl (32-36); Mean Corpuscular Hemoglobin 26.4 pg (26-34); Mean Corpuscular Volume 83.9 fl (80-100); Mean Platelet Volume 9.8 fl (7.4-10.4); Monocytes Absolute Auto 0.8 K/mm3 (0.1-0.6); Monocytes Percent Auto 11.7 % (2.6-8.5); Neutrophils Absolute Auto 3.3 K/mm3 (1.3-6.7); Neutrophils Percent Auto 46.7 % (45.5-73.1); Platelet Count Result 511 k/mm3 (150-375); Red Blood Count 3.79 M/mm3 (4.2-5.4); Red Cell Distribution Width 14.2 % (11.5-14.5)
[2023-10-26 21:45] LABS: Alanine Aminotransferase 18 U/L (6-35); Albumin Level 3.8 g/dL (3.5-5.1); Alkaline Phosphatase 104 U/L (38-126); Anion Gap 8 mmol/L (4-12); Aspartate Amino Transferase 21 U/L (14-36); Bilirubin,Total 0.4 mg/dL (0.2-1.3); Blood Urea Nitrogen 12 mg/dL (7-17); Calcium 8.5 mg/dL (8.4-10.2); Carbon Dioxide 23 mmol/L (22-30); Chloride 107 mmol/L (98-107); Estimated CRCL calculation 87 ml/min; Estimated Glomerular Filt Rate > 60; Glucose 91 mg/dL (65-110); Potassium 3.6 mmol/L (3.4-5.0); Sodium 138 mmol/L (137-145)
[2023-10-26] MEDS: SODIUM CHLORIDE 0.9% IV 1,000 ML 999 ML IV CONT (22:06)
[2023-10-26 22:33] LABS: Appearance Urine Clear (Clear); Bacteria Urine None Seen /hpf; Bilirubin Urine Negative (Negative); Blood Urine 2+ (Negative); Color Urine Yellow (Yellow); Glucose Urine UA Negative (Negative); Ketones Urine Negative (Negative); Leukocyte Esterase Ur Trace LEU/UL (Negative); Nitrate Urine Negative (Negative); Non Pathogenic Casts 0-2; Protein Urine Negative (Negative); RBC Urine 0-2 /hpf (0-2); Specific Grav Ur 1.013 (1.001-1.035); Squamous Epithelial Cell Urine None Seen /hpf (Few); Urobilinogen Urine 0.2 mg/dL (<2.0); WBC Urine 0-5 /hpf (0-3)
[2023-10-26 22:34] LABS: Add Urine Microscopic? YES
--- NOTE | 2023-11-08 11:17 | PC.NURSE ---
LATE ENTRY This note is being entered to document information to the patient's record. The following information was omitted on [10/26/23], by [Lainey Venegas RN]. NS stop time 2300
== END 2023-10-26 22:59 | disposition home or self-care (01) ==
PROVIDERS: Emergency Provider Emergency Medicine
DX: O90.89 Other complications of the puerperium, not elsewhere classified (principal); R56.9 Unspecified convulsions; Z87.891 Personal history of nicotine dependence
CPT/HCPCS: 36415; 80053; 81001; 85025; 93005; 96360; 99284; J7030

== ENCOUNTER 2024-04-23 17:06 | Emergency (ER) | payer OTHER, SELFPAY ==
[2024-04-23 17:10] VITALS: BP 130/85; PULSE 100; RESP 18; TEMP 37.2; O2SAT 100
--- NOTE | 2024-04-23 17:21 | ED.UPPEXIN ---
HPI - Extremity Injury (Upper) General Chief Complaint: Extremity Injury, Upper Stated Complaint: LEFT ARM PAIN Time Seen by Provider: 04/23/24 17:20 Source: patient Mode of arrival: ambulatory Limitations: no limitations History of Present Illness HPI narrative: this is a 28-year-old female with no significant past medical history presents with left thumb elbow pain the medial aspect of her left elbow with palpation with some numbness and tingling in her 3rd 4th and 5th fingers no known injury radiation of her pain from her wrist into her upper elbow with no known injury no fever chills no shortness of breath no chest pain or shortness of breath no nausea vomiting. complaint: injury to: left Onset (ago): day(s) Other Extremity Injury: Left: hand ( pain with numbness) and elbow ( pain and numbness) Handedness: right Severity: mild Related Data Allergies Allergy/AdvReac Type Severity Reaction Status Date / Time No Known Allergies Allergy Verified 04/23/24 17:11 Review of Systems Review of Systems: All systems reviewed & are unremarkable except as noted in HPI and below PMFSH Past Medical History Medical History Encounter for biopsy 2011 soft tissue of back--benign Encounter for IUD insertion (07/15/20) Encounter for IUD removal (04/07/21) Encounter for screening examination for sexually transmitted disease 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 Manic depression hypertension Seizure Surgical History Surgical History No history of previous surgery Family History Family History Mother Malignant tumor of cervix Other Malignant tumor of cervix maternal aunt Social History Social History Smoking status: Former smoker Tobacco type: e-cigarettes/vaping Alcohol intake: current Alcohol use details: 1 x month Substance use: never Substance use type: does not use Do You Feel Safe in your Home?: No Lack of Transportation: No Lack of Food: Never True Current Housing: I Have Housing Concerned About Future Housing: No Difficulty Paying Gas/Electric Bills: No Difficulty Paying for Meds: No Currently Unemployed: No Education: High School Diploma/GED Difficulty w/ Childcare or Family Care: No Living arrangements: other Additional living arrangements comments: Occupation/Education: occupation 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 Gender identity (if verbalized by the patient): Female Sexual Orientation (if Verbalized by the Patient): Bisexual Spiritual care concerns: No Exam Const: General: healthy appearing, no acute distress and alert Nutritional Appearance: well nourished Orientation/consciousness: patient oriented x3 Limitations: no limitations Neck: Neck: normal visual inspection, no lymphadenopathy and no meningeal signs Chest: Chest palpation & inspection: normal inspection of the chest Resp: Effort & Inspection: normal respiratory effort Auscultation: clear to auscultation bilaterally Cardio: Rate: regular rate Rhythm: regular rhythm GI: GI Palp: Yes Soft to palpation Auscultation: normal bowel sounds Skin: General skin exam: normal color Rashes: no rashes Neuro: General: patient oriented x3, moves all extremities and no meningeal signs Extrem: Other: Tenderness ulnar surface of her left elbow and with palpation Course Course Emergency Course: advised patient to take medication as prescribed. Critical Care Time Critical Care Time Critical Care Time: No Discharge Plan Discharge Clinical Impression: Ulnar tunnel syndrome of left wrist Patient Disposition: Home, Self-Care Condition: Stable Instructions: Antibiotic Form, Paresthesia (ED) Additional Instructions:
== END 2024-04-23 17:45 | disposition home or self-care (01) ==
LOC: CHSED 17:25
PROVIDERS: Emergency Provider Emergency Medicine; PCP Internal Medicine
DX: G56.22 Lesion of ulnar nerve, left upper limb (principal); Z87.891 Personal history of nicotine dependence
CPT/HCPCS: 99283

== ENCOUNTER 2024-05-05 14:22 | Outpatient (CLI) | payer OTHER, SELFPAY ==
--- NOTE | ~2024-05-05 | CT_ITS ---
EXAMINATION: CT sinus wo con DATE: 05/05/2024 14:51 INDICATION: Chronic sinusitis TECHNIQUE: Computed tomography (CT) of the paranasal sinuses was performed without intravenous contra st. The dose-length product was 255.24 mGy-cm. Automated exposure control and iterative reconstructio n technique were employed. COMPARISON: None FINDINGS: There is complete opacification of the left maxillary sinus. There is mild mucosal thickeni ng of the left eighth white sinuses. Mild left maxillary mucoperiosteal reaction. Mastoids are pneuma tized. Leftward nasal septal deviation. IMPRESSION: 1. Chronic left maxillary sinusitis. Reviewed, dictated and finalized at location B.
== END 2024-05-05 14:23 | disposition home or self-care (01) ==
LOC: MICIMG 14:23
PROVIDERS: PCP Otolaryngology; Visit Provider Otolaryngology
DX: J32.0 Chronic maxillary sinusitis (principal)
CPT/HCPCS: 70486

== ENCOUNTER 2024-09-30 10:10 | Outpatient (CLI) | payer OTHER, SELFPAY ==
--- NOTE | ~2024-09-30 | XR_ITS ---
Clinical Indication: Nicotine dependence PA and lateral views of the chest: Comparison: 08/14/2022 Findings: The lungs are clear, without evidence of focal consolidation or pleural effusion. Cardiome diastinal silhouette is within normal limits. Bones and soft tissues are unremarkable. Impression: Normal chest. Reviewed, dictated and finalized at location . Impression: Normal chest.
--- NOTE | ~2024-09-30 | XR_ITS ---
Lumbosacral Spine: AP and lateral views Clinical History: Pain Findings: The normal lordotic curve is maintained. The vertebral bodies and posterior elements are i ntact. The intervertebral disc spaces are preserved. The sacroiliac joints are normally outlined. Impression: No significant abnormality. Reviewed, dictated and finalized at [facility]. Impression: No significant abnormality.
--- OUTSIDE RECORDS SUMMARY | 2024-09-30 11:42 | XMS_ITS | Data Portability ---
Author Organization [facility] [employer], Main Office Address [address] [place] [address] Care Team Providers Care Buttonhole Facer Name Role Phone RICA HOPKINS Primary Care Provider Assessment No assessment recorded. Plan of Treatment Reminders Order Date Submit Date Provider Last Modified By Organization Details Last Modified Time Details Appointments Procedure 15 2024 10:00A M Mason Mckeon MD Not available Not available Not available Post-Op 15 2024 01:30P SORAIDA Manjarrez Not available Not available Not available Lab None recorded. Referral None recorded. Procedures None recorded. Surgeries septoplas ty (SURG) 2024 025 Not available 09/11/2024 12:23:08 endoscopy , nasal/sin us, w/ maxillary antrostom y & tissue removal (SURG) 2024 025 Not available 09/11/2024 12:23:08 Imaging None recorded. Medication Orders prednison e 20 mg tablet 2023 024 [id number], [address], [place], [id number], 04/15/2024 15:24:17 levofloxa kolton 500 mg tablet 2023 024 [facility][id number], [address], [place], [id number], 04/15/2024 15:24:21 Patient TargetsNo targets recorded. Patient Instructions Encounter Date Encounter Id Patient Instructions Last Modified By Organization Details Last Modified Time 04/01/2024 [id number] DISCUSSED AT LENGTH HER CT RESULTS AND TREATMENT OPTION. DISCUSSED CASE WITH DR. STARK WHO AGREES WITH [employer] FOR ANTIMICROBIAL COVERAGE PENDING PATHOLOGY. SHE IS SCHEDULED WITH DR. STARK FOR SURGICAL CONSULTATION FOR LEFT MAXILLARY ANTROSTOMY. ALSO ADVISED HER NOT TO BEGIN HER PREDNISONE UNTIL AFTER HER MRI IS COMPLETED TOMORROW. [email or web address] Not available 04/01/2024 12:53:18 04/15/2024 [id number] she will undergo left antrostomy with navigation and tonsillectomy at a later date [email or web address] Not available 04/15/2024 15:41:17 Reason for Referral None Reported. Results Created Date Observation Date Name Description Value Unit Range Abnormal Flag Note LastModifiedBy Organization Detail LastModifiedTime 04/07/20 21 04/07/2021 urina lysis , dipst ick Leukocytes (reference range: negative yvette/ l) Negati ve Not Available [facility] [place] [address], [place], [address], 04/07/2021 11:14:23 04/07/20 21 04/07/2021 urina lysis , dipst ick Nitrite (reference rage: negative mg/dl) negati ve Not Available [facility] [place] [address], [address], [place], [address], 04/07/2021 11:14:23 04/07/20 21 04/07/2021 urina lysis , dipst ick Urobilinogen (reference range: 0.2-1 mg/dl) 0.2 Not Available [facility] [place] [address], [place], [address], 04/07/2021 11:14:23 04/07/20 21 04/07/2021 urina lysis , dipst ick Protein (reference range: negative mg/dl) Negati ve Not Available [facility] [place] [address], [place], [address], 04/07/2021 11:14:04/07/2004/07/2021 urina lysis , dipst ick pH (reference range: 5-7) 5.0 Not Available [facility] [place] [address], [place], [address], 04/07/2021 11:14:04/07/20 21 04/07/2021 urina lysis , dipst ick Blood (reference range: negative Frank/ l) Negati ve Not Available [facility] [place] [address], [place], [address], 04/07/2021 11:14:04/07/2004/07/2021 urina lysis , dipst ick Specific Axtell (reference range: 1.005-1.030) 1.000 Not Available [facility] [place] [address], [place], [address], 04/07/2021 11:14:04/07/20 21 04/07/2021 urina lysis , dipst ick Ketone (reference range: negative mg/dl) Negati ve Not Available [facility] [place] [address], [place], [address], 04/07/2021 11:14:04/07/20 21 04/07/2021 urina lysis , dipst ick Bilirubin (reference range: negative mg/dl) Negati ve Not Available [facility] [place] [address], [place], [address], 04/07/2021 11:14:23 04/07/20 21 04/07/2021 urina lysis , dipst ick Glucose (reference range: negative mg/dl) Negati ve Not Available [facility] [place] [address], [place], [address], 04/07/2021 11:14:23 04/07/20 21 04/07/2021 urina lysis , dipst ick Appearance Clear Not Available [facility] [place] [address], [place], [address], 04/07/2021 11:14:23 04/07/2004/07/2021 urina lysis , dipst ick Color Pale Yellow Not Available [facility] [place] [address], [place], [address], 04/07/2021 11:14:23 04/28/2003/15/2024 CT, head + brain , w/o contr ast No observ ation record ed. Not Available 2023 18:55:58 05/06/2005/05/2024 CT, sinus es, w/o contr ast No observ ation record ed. [facility] [address], [place], [address], 05/07/2024 10:04:57 05/08/2005/05/2024 CT, sinus es, w/o contr ast No observ ation record ed. [facility] [address], [place], [address], 05/12/2024 13:23:58 Result Notes None recorded. Problems Name Problem SNOMED Code Status Onset Date Resolution Date Notes Provider Name and Address Organization Details Recorded Time 08149493 Completed 201704/18/2018 Not Available [facility] 3 19:30:20 Chronic left maxillary sinusitis 39854836530 976025 Active 2023 SORAIDA Zhou [address], [address], [place], [address] , [facility] 4 12:49:35 Hypertrop hy of tonsils 36864238 Active 2023 SORAIDA Zhou [address], [address], [place], [address] , [facility] 4 12:50:56 Chronic tonsillit is 91602481 Active 2023 Mason Mckeon MD [address], [place], [address] , [facility] 4 15:41:03 Chronic sinusitis 53755221 Active 2023 Avis Brower RN null, [facility] 4 18:16:24 Chronic maxillary sinusitis 35633164 Active 2024 Mason Mckeon MD [address], [address], [place], [address] , [facility] 5 14:58:29 Deviated nasal septum 115347489 Active 2024 Mason Mckeon MD [address], [place], [address] , [facility] 5 14:58:38 Problem Notes None recorded. Procedures Surgical History Date Name Laterality Status Provider Name and Address Organization Details Recorded Time 9 Date of Last Pap Smear completed Not Available [facility] 09/12/2022 19:28:38 deep biopsy of soft tissue of back completed Not Available [facility] 09/12/2022 19:28:38 Mirena, 52 mg completed Not Available [facility] 09/12/2022 19:28:38 Imaging Results Imaging Date Name Status [facility]Modified by [facility] Details LastModified Time 03/15/2024 CT, head + brain, w/o contrast completed Information not available 04/28/2024 18:55:58 05/05/2024 CT, sinuses, w/o contrast completed [facility] [address], [place], [address], 05/07/2024 10:04:57 05/05/2024 CT, sinuses, w/o contrast completed [facility] [address], [place], [address], 05/12/2024 13:23:58 Procedure Notes None recorded. Medical Equipment None Reported. Allergies Allergen ID Allergen Name Allergen Category Reaction Reaction Severity Criticality Documentation Date Start Date Code Code System Note Provider Name and Address Organization Details Recorded Time 55627 Benadryl medicatio n other Not available Not available 04/01/202493313 7 RxNorm body burni ng Nayeli luna, [place] [facility] 10:46:42 Medications Name Sig Start Date Stop Date Status Note LastModified by Organization Details LastModified Time amoxicillin 500 mg capsule 06/28 completed Not Available Not Available Not Available Mirena 21 mcg/24 hr (up to 8 years) 52 mg intrauterin e device Take 1 device by intrauter ine route. 04/07 completed Not Available Not Available Not Available prednisone 10 mg tablet 06/13 completed Not Available Not Available Not Available fluconazole 150 mg tablet TK 1 T PO TODAY 06/28 completed Not Available Not Available Not Available hydrocodone 5 mg-acetamin ophen 325 mg tablet 05/13 completed Not Available Not Available Not Available ondansetron HCl 4 mg tablet TAKE 1 TABLET BY MOUTH EVERY 8 HOURS NEEDED 04/07 completed Not Available Not Available Not Available prednisone 20 mg tablet TAKE 2 TABLETS DAILY X 5 DAYS 04/15 completed Not Available Not Available Not Available sumatriptan 50 mg tablet 06/28 completed Not Available Not Available Not Available topiramate 25 mg tablet 06/28 completed Not Available Not Available Not Available acetaminoph en 300 mg-codeine 30 mg tablet 06/28 completed Not Available Not Available Not Available valacyclovi r 500 mg tablet TAKE 1 TABLET BY MOUTH EVERY 12 HOURS FOR 3 DAYS 04/07 completed Not Available Not Available Not Available sulfamethox azole 800 mg-trimetho prim 160 mg tablet 06/13 completed Not Available Not Available Not Available lamotrigine 25 mg tablet Take 2 tablets twice a day by oral route. 08/07 completed Not Available Not Available Not Available Vitamin tablet Take 1 tablet every day by oral route. 08/07 completed Not Available Not Available Not Available amoxicillin 875 mg tablet TAKE 1 TABLET BY MOUTH EVERY 12 HOURS FOR 10 DAYS 04/07 completed Not Available Not Available Not Available benzonatate 100 mg capsule TK 2 CS PO TID PRN 09/12 completed Not Available Not Available Not Available gabapentin 300 mg capsule 06/28 completed Not Available Not Available Not Available levofloxaci n 500 mg tablet Take 1 tablet every 24 hours by oral route for 10 days. 04/15 completed Not Available Not Available Not Available labetalol 100 mg tablet Take 1 tablet twice a day by oral route. 08/07 completed Not Available Not Available Not Available fluticasone propionate 50 mcg/actuati on nasal spray,suspe nsion INSTILL 2 SPRAYS IEN QD PRN 09/12 completed Not Available Not Available Not Available naproxen 500 mg tablet TAKE 1 TABLET BY MOUTH TWICE DAILY 09/10 completed Not Available Not Available Not Available amoxicillin 875 mg-potassiu m clavulanate 125 mg tablet TK 1 T PO Q 12 H FOR 10 DAYS active Not Available Not Available No t Available hydroxyzine pamoate 25 mg capsule 06/28 completed Not Available Not Available Not Available NuvaRing 0.12 mg-0.015 mg/24 hr vaginal Insert 1 vaginal ring every month by vaginal route. 07/27 completed Not Available Not Available Not Available medroxyprog esterone 150 mg/mL intramuscul ar syringe ADM 1 ML IM Q 3 MONTHS 11/10 completed Not Available Not Available Not Available zonisamide 50 mg capsule 06/28 completed Not Available Not Available Not Available Tri-Sprinte c (28) 0.18 mg(7)/0.215 mg(7)/0.25 mg(7)-35 mcg tablet TAKE 1 TABLET BY MOUTH EVERY DAY active Not Available Not Available No t Available riboflavin (vitamin B2) 400 mg tablet TK 1 T PO QD FOR LINDSEY RCIO N 05/13 completed Not Available Not Available Not Available Vitals Date Recorded Body mass index (BMI) Body height Body temperature Body weight Systolic blood pressure Diastolic blood pressure Provider Name and Address Organization Details Last Updated DateTime 1 19.1 kg/m2 160.02 cm 98 [degF] 36826.9 8 g 110 mm[Hg] 61 mm[Hg] Not Available [employer] 3 19:29:25 Date Recorded Body height Body mass index (BMI) Body weight Body temperature Provider Name and Address Organization Details Last Updated DateTime 04/01/2024 160.02 cm 22.5 kg/m2 73368.95 g 98 [degF] Avis Brower RN [facility] [employer] 04/01/2024 12:15:45 Date Recorded Body height Body mass index (BMI) Body weight Body temperature Provider Name and Address Organization Details Last Updated DateTime 04/15/2024 160.02 cm 22.1 kg/m2 47956.05 g 98 [degF] Avis Brower RN [facility] [employer] 04/15/2024 15:28:04 Date Recorded Body height Body mass index (BMI) Body weight Body temperature Provider Name and Address Organization Details Last Updated DateTime 09/10/2024 160.02 cm 22 kg/m2 37746.89 g 98 [degF] Mally Hernandez CNA [place] [facility] [employer] 09/10/2024 14:50:01 Social History Question Answer Notes LastModified by Organizat ion Details LastModified Time Tobacco Smoking Status Former Smoker Nayeli luna [employer] [facility] [employer] 04/01/2024 10:47:52 What Is Your Level Of Alcohol Consumption? Occasional [email or web address] Information not available 04/01/2024 When Did You Quit Smoking? 1-5yearssintea valdez [email or web address] Information not available 04/01/2024 Sex: Unknown Functional Status None recorded. Mental Status None recorded. Family History Nothing Reported Notes:MATERAL GRANDMOTHER LINDSEY D SOMETHING REMOVED FROM NOSE Medical History Condition Response MRSA N ALLERGIES/HAYFEVER N BACK INJECTIONS N LUNG DISEASE/DISORDER N INSOMNIA N HISTORY OF DRUG ABUSE N ESRD N RADIATION / CHEMOTHERAPY N COPD N HIGH CHOLESTEROL / HYPERLIPIDEMIA N HYPERTHYROIDISM N PVD N BLOOD DISEASES N EAR OR HEARING PROBLEMS N HYPOTHYROIDISM N SHINGLES N DEPRESSION (INCLUDING POST ) N BACK / NECK PROBLEMS N HAVE YOU BEEN HOSPITALIZED OR SEEN IN [facility] IN THE PAST YEAR ? N FAILED BACK SYNDROME N STROKE/TIA N POLYCYSTIC OVARIES N OBESITY N ANEURYSM N HISTORY WITH COMPLICATIONS WITH ANESTHES IA ? N URINARY/BLADDER/KIDNEY PROBLEMS Y Do you have Advance directive? N USE OF BLOOD THINNERS N NO SIGNIFICANT PAST MEDICAL HISTORY N DIABETES, TYPE N VON WILLIBRAND'S DISEASE N PARATHYROID DISEASE N ENT N SEASONAL ALLERGIES N HEARTBURN / REFLUX N POST LAMINECTOMY SYNDROME N HEPATITIS / LIVER DISEASE N SLEEP DISORDER N ARTERIAL INSUFFICIENCY N HEADACHES/MIGRAINES N SEIZURES/EPILEPSY Y CHF N PACEMAKER N DIZZINESS N HEART DISEASE/HEART PROBLEMS N AIDS/HIV N NEUROPSYCHOLOGICAL N HYPERTENSION N CANCER: SPECIFY N TOURETTE'S N BLOOD TRANSFUSION N ANESTHESIA COMPLICATIONS N ANEMIA/BLOOD DISORDER N CHRONIC EAR INFECTIONS N ATRIAL FIBRILLATION N AUTOIMMUNE DISEASE N TUBERCULOSIS N Gynecological History Statement/Question Response Date of Last Pap Smear 10/02/2018 Current Control Method IUD Date of LMP 03/28/2021 Obstetrics History GPAL:G 1 P 1 0 0 1 Type Value Full Term 1 Living 1 Total 1 Past Encounters Encounter ID Performer Location Encounter Start Date Encounter Closed Date Diagnosis/Indication Diagnosis SNOMED-CT Code Diagnosis ICD10 Code Diagnosis Note [id number] _ATHENA_M IGRATION_ DEFAULT_1 _1 , 04/07/2021 00:00:00 04/07/2021 15:03:25 [id number] SORAIDA Zhou [facility] [place] [address] [place] [address] 04/01/2024 12:05:50 04/01/2024 12:53:51 Chronic left maxillary sinusitis 2333440473 7899731 J32.0 Hypertroph y of tonsils 61346364 J35.1 SHE WILL DISCUSS TONSILLECT ANTHONY AT HER SURGICAL CONSULTATI ON WITH DR. MCKEON. [id number] Mason Mckeon MD [facility] [place] [address] [place] [address] 04/15/2024 15:15:38 04/17/2024 14:53:21 Chronic left maxillary sinusitis 3192150688 1195624 J32.0 Chronic tonsillitis 9097 9004 J35.01 [id number] Mason Mckeon MD [facility] [place] [address] [place] [address] 09/10/2024 14:42:06 09/11/2024 13:21:50 Chronic maxillary sinusitis 72893071 J32.0 Deviated nasal septum 12 2596776 J34.2 Health Concerns Section Related Observation LastModified by Organization Detai ls LastModified Time None Recorded Concern Status LastModified by Organization Details LastModified Time None Recorded Advance Directives Directive None Recorded Payers Encounter Date Sequence Insurance Name Policy Number Policy Branham Covered Member ID Branham Member ID Guarantor Name 04/01/2024 1 [facility] [id number] Geovanny Bill Dominique [id number] Cale Dominique 04/15/2024 1 [facility] [id number] Geovanny Bill Dominique [id number] Cale Dominique 09/10/2024 1 [facility] (MEDICAID HMO) [id number] Cale Emerson [id number] Cale Dominique Notes Date Note Type Note Provider Name and Address Organization Details Recorded Time 04/01/2024 text/html this patient presents with no significant past medical history. She reports sinus congestion pressure and left otalgia. She reports her sinus congestion was onset approximately 1 year ago. She does report malodorous mucus. She had a CT of her sinuses completed at [facility] 2 weeks ago revealing a complete left opacification to her maxillary sinus and a left ostiomeatal unit. She reports having been on cephalexin without symptom relief. She does note that she is scheduled for an MRI tomorrow as she is being worked up by her PCP for MS. She also endorses a significant history with strep and tonsillitis with frequent tonsil stones. She is interested in exploring a tonsillectomy at some point. She does report snoring during her sleep. Avis Smith, SORAIDA [address] [facility], [facility] [address], [place], [address], [place] [facility] [employer] 04/01/2024 12:53:22 04/15/2024 text/html this patient had a CT scan demonstrated opacified left maxillary sinus possibly consistent with fungal sinusitis. Antibiotics have been ineffective and she has foul drainage and a foul smell routinely. In addition she has cryptic tonsils with tonsil stones. Mason Mckeon MD [address] [facility], [place], [address], [facility] [employer] [facility] 04/15/2024 15:41:37 09/10/2024 text/html This patient is scheduled for left antrostomy for opacified left maxillary sinus on CT. However she complains of right-sided congestion as well which is worsening. On CT there was right septal deviation. She is also interested in having the right side opens the same time to avoid this in the future Mason Mckeon MD [address], [place], [address], [employer] [facility] [employer] [facility] 09/10/2024 14:59:05 OBGyn Episode No OBEpisode recorded.
--- OUTSIDE RECORDS SUMMARY | 2024-09-30 11:42 | XMS_ITS | Encounter Summary ---
Author Organization [facility] Address [address] [facility] [place] [address] Care Team Providers Care Deposition Operator Name Role Phone Mary Mariscal MD Primary Care Provider Encounter Details Date Type Department Care Team (Late st Contact Info) Description 12/25/2019 Lab Requisition [facility] [address] [place] [address] Jasiel Jarvis MD Social History Tobacco Use Types Packs/Day Years Used Date Smoking Tobacco: Former Smokeless Tobacco: Never Alcohol Use Standard Drinks/Week Comments No 0 (1 standard drink = 0.6 oz pur e alcohol) Sex and Gender Information Value Date Recorded Sex Assigned at Not on file Gender Identity Not on file Sexual Orientation Not on file documented as of this encounter Plan of Treatment Not on file documented as of this encounter Procedures Procedure Name Priority Date/Time Associated Diagnosis Comments SARS-COV-2 (COVID-19) IN HOUSE Routine 12/24/2019 1:00 PM CDT documented in this encounter Results * SARS-COV-2 (COVID-19) IN HOUSE (12/24/2019 1:00 PM CDT) COVID-19 PCR Not detected Not detected, Invalid 12/25/2019 9:19 PM CDT [facility] Microbiology SPECIMEN FROM NASOPHARYNGEAL STRUCTURE / Unknown Collection / Unknown 12/24/2019 1:00 PM CDT 12/25/2019 9:38 AM CDT Narrative [facility] - 12/25/2019 9:19 PM CDT This Real Time RT-PCR assay was developed and its performance characteristics determined by [facility]. This test has been authorized by the Food and Drug administration (FDA)under an Emergency Use Authorization (EUA). This test has been validated in accordance with the FDA's guidance document Policy for Diagnostic Testing in Laboratories Certified to perform High Complexity Testing under CLIA prior to Emergency Use Authorization for Coronavirus Disease-2019 during the Public Health Emergency issued on September 12, 2019. FDA independent review of this validation is pending. This test is only authorized for the duration of time the declaration that circumstances exist justifying the authorization of emergency use of in vitro diagnostic tests for detection of SARS-CoV-2 virus and/or diagnosis of COVID-19 infection under section 564(b)(1) of the Act, 21 U.S.C 360bbb-3 (b)(1), unless the authorization is terminated or revoked sooner. Jasiel Jarvis MD LAB - MICROBIOLOGY ORDERABLES [facility] [address] [place], [place] [address], [facility] [phone] documented in this encounter Visit Diagnoses Not on filedocumented in this encounter Additional Health Concerns Infection Onset Date Last Indicated Resolved Time COVID-19 Under Investigation 12/24/2019 12/24/2019 12/25/2019 9:19 PM CDT documented as of this encounter Care Teams Deposition Operator Relationship Specialty Start Date End Date Mary Mariscal MD [address] [place] [id number] PCP - General 01/11/20 documented as of this encounter
--- OUTSIDE RECORDS SUMMARY | 2024-09-30 11:42 | XMS_ITS | Referral Summary ---
Author Organization [place] [id number] Address [address] [place] [address] Care Team Providers Care Accounts Receivable Processor Name Role Phone Elijah Armas MD Primary Care Provider [phone] Unknown, Notinfile Unavailable Unavailable Allergies No known active allergies Immunizations Immunization Administration Dates Next Due Tdap 05/14/2020 Social History Tobacco Use Types Packs/Day Years Used Date Smoking Tobacco: Never Assessed Personal Safety Answer Date Recorded Have you ever been in or are you currently in a harmful physical or emotional relationship or is someone making you feel afraid or unsafe? Denies 03/14/2024 Comments No Sex and Gender Information Value Date Recorded Sex Assigned at Not on file Legal Sex Female 1:16 AM VTC TECHNICIAN Gender Identity Not on file Sexual Orientation Not on file Last Filed Vital Signs Vital Sign Reading Time Taken Comments Blood Pressure 90/49 03/15/2024 1:30 AM CDT Pulse 67 03/15/2024 1:30 AM CDT Temperature 36.9 C (98.5 F) 03/14/2024 10:39 PM CDT Respiratory Rate 16 03/15/2024 1:30 AM CDT Oxygen Saturation 97% 03/15/2024 1:30 AM CDT Inhaled Oxygen Concentration - - Weight 56.7 kg (125 lb) 03/14/2024 10:39 PM CDT Height 160 cm (5' 3 ) 03/14/2024 10:39 PM CDT Body Mass Index 22.14 03/14/2024 10:39 PM CDT Plan of Treatment Not on file Insurance [facility]PPO Address: [place] [address] Care Teams Accounts Receivable Processor Relationship Specialty Start Date End Date Elijah Armas MD [address] [facility] [address] [place] [id number] PCP - General Internal Medicine 03/11/24 Unknown, Notinfile 03/11/24
--- OUTSIDE RECORDS SUMMARY | 2024-09-30 11:42 | XMS_ITS | Clinical Summary ---
Author Organization [facility] Address [address] [place] [address] Care Team Providers Care Machine Adjuster Name Role Phone Elijah Armas MD Primary Care Provider [phone] Medications levonorgestrel (KYLEENA) 19.5 MG IUD 1 each (19.5 mg total) by Intrauterine route once. Active lamoTRIgine (LAMICTAL) 25 MG tabletIndicatio ns:Bipolar disorder, current episode manic without psychotic features, severe (CMS/HCC HHS/HCC),Seizur e (CMS/HCC HHS/HCC) Take 1 tablet (25 mg total) by mouth daily. 30 tablet 1 4 Active fluticasone propionate (FLONASE) 50 MCG/ACT nasal sprayIndication s:Chronic maxillary sinusitis 2 sprays by Nasal route daily. 16 g 5 4 Active Active Problems No known active problems Family History Medical History Relation Comments Muscular dystrophy Maternal Uncle Cervical cancer Mother Muscular dystrophy Mother Spinal muscular atrophy Mother Relation Status Comments Maternal Uncle Mother Social History Tobacco Use Types Packs/Day Years Used Date Smoking Tobacco: Former Cigarettes 0.5 1 0 07/15/2016 - 07/15/2017 Passive Smoke Exposure: Never Smokeless Tobacco: Never Tobacco Cessation:Counseling Given: Yes Comments:Counseled by Dr. Armas. PHQ-2 Answer Date Recorded Patient Health Questionnaire-2 Score 2 03/10/2024 Comments Unknown Sex and Gender Information Value Date Recorded Sex Assigned at Not on file Legal Sex Female 2:19 PM CDT Gender Identity Not on file Sexual Orientation Not on file Last Filed Vital Signs Vital Sign Reading Time Taken Comments Blood Pressure 101/61 03/10/2024 2:10 PM CDT Pulse 70 03/10/2024 2:10 PM CDT Temperature 36.6 C (97.9 F) 03/10/2024 2:10 PM CDT Respiratory Rate 18 03/10/2024 2:10 PM CDT Oxygen Saturation 100% 03/10/2024 2:10 PM CDT Inhaled Oxygen Concentration - - Weight 56.1 kg (123 lb 9.6 oz) 03/10/2024 2:10 P M CDT Height 160 cm (5' 3 ) 03/10/2024 2:10 PM CDT Body Mass Index 21.89 03/10/2024 2:10 PM CDT Plan of Treatment Health Maintenance Due Date Last Done Comments Cervical Cancer Screening Pap Smear (Age 21 to 29) Every 3 Years 1997 Cervical Cancer Screening 1997 Annual Physical 2000 Hepatitis C 2015 COVID-19 Vaccine ( season) 2024 06/04/2021, 05/14/2021 Influenza Adult (#1) 2024 PHQ-2 (Physician [place]) 07/15/2024 03/10/2024 DTaP, Tdap and Td Vaccines (10 - Td or Tdap) 10/01/2033 10/02/2023, 05/14/2020, 04/18/2018, Additional history exists Hepatitis B Vaccines Completed 01/25/1998, 1997, 1997, Additional history exists Meningococcal Vaccine Completed 10/19/2013, 009 HPV Vaccines Completed 02/22/2015, 01/2014, 08/14/2012 Meningococcal B Vaccine Aged Out No l onger eligible based on patient's age to complete this topic Pneumococcal Vaccine: Pediatrics (0 to 5 Years) and At-Risk Patients (6 to 64 Years) Aged Out No longer eligible based on patient's age to complete this topic RSV Immunizations Under 20 Months Aged Out No longer eligible based on patient's age to complete this topic Insurance [facility] Care Teams Machine Adjuster Relationship Specialty Start Date End Date Elijah Armas MD [address] [facility] [address] [place] [address] PCP - General INTERNAL MEDICINE 03/09/24
--- OUTSIDE RECORDS SUMMARY | 2024-09-30 11:42 | XMS_ITS | Clinical Summary ---
Author Organization [facility] [employer] Address [address] [place] [address] Care Team Providers Care Metallurgical Or Materials Technician Name Role Phone Mary Mariscal MD Primary Care Provider Source Comments [facility] [employer],non-owned Affiliates and Associated Physician Practices is amultiple site organization consisting of ambulatory clinics and hospital sitesin [place], [place], [place] and [place]. This disclosure is being madepursuant to the Care Everywhere program and may not contain all information available regarding this patient. Last updated 18.[facility] [employer] Allergies No known active allergies Medications * Be aware that medications may not be up to date on this document. Alwaysverify current medications with the patient. Medication Sig Dispensed Refills Start Date End Date Status lamoTRIgine (LAMICTAL) 25 MG tabletIndications: Atonic Seizures Take 50 mg by mouth 2 times daily Reasons: Seizures with Sudden Loss of Muscle Tone Active Prwytecc-Ioy-Kw-FA ( VITAMIN WITH IRON) tablet Take 1 tablet by mouth once daily Active folic acid (FOLVITE) 1 MG tablet Take 1 mg by mouth once daily Active Riboflavin 400 MGIndications:Head ache prevention Take 1 tablet by mouth once daily Reasons: Headache prevention 30 tablet 4 03/05/2018 Active Cholecalciferol (VITAMIN D3) 400 UNITS tablet Take 400 Units by mouth once daily Active cyanocobalamin (VITAMIN B-12) 100 MCG tablet Take 100 mcg by mouth once daily Active acetaminophen (TYLENOL) 500 MG tablet Take 500 mg by mouth every 4 hours as needed for Headache Maximum allowable Acetaminophen amount = 4 Grams (4000 mg) / 24 hours. 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 Overview (03/05/2018): Seizure Disorder on Lamictal Neurolgist: Dr Gupta CT brain NEG (2015) Manic depression 03/05/2018 Overview (03/05/2018): Manic Depression - non medicated Psychiatry through [facility] Supervision of high-risk of young prim igravida 03/05/2018 Resolved Problems Problem Noted Date Diagnosed Date Resolved Date Current smoker 03/05/2018 03/05/2018 Family History Medical History Relation Name Comments CAD (Coronary Artery Disease) Maternal Grandmother Diabetes - Type 2 Maternal Grandmother Diabetes - Gestational Mother Multiple Sclerosis Mother Seizures Mother Autism Spectrum Disorder Other Relation Name Status Comments Maternal Grandmother Mother Alive Malignant tumor of cervix Other Patient first c ousin - Autistic Social History Tobacco Use Types Packs/Day Years [...] Sign Reading Time Taken Comments Blood Pressure 123/71 03/21/2018 8:47 AM CDT Pulse 77 03/21/2018 8:47 AM CDT Temperature 36.7 C (98.1 F) 12/08/2016 2:43 PM CDT Respiratory Rate 16 12/08/2016 2:43 PM CDT Oxygen Saturation 97% 12/08/2016 2:43 PM CDT Inhaled Oxygen Concentration - - Weight 64.2 kg (141 lb 9.6 oz) 03/05/2018 9:10 A M CDT Height 160 cm (5' 3 ) 12/08/2016 2:43 PM CDT Body Mass Index 25.08 12/08/2016 2:43 PM CDT Plan of Treatment Health Maintenance Due Date Last Done Comments PAP SMEAR 1997 HIV SCREENING 2012 HEPATITIS C SCREENING 07/01/2015 DTAP/TDAP/TD VACCINES (1 - Tdap) 2016 HEPATITIS B VACCINE (1 of 3 - 19+ 3-dose series) 2016 COVID-19 VACCINE (2023-2 5 season) 2024 INFLUENZA VACCINE (#1) 2024 ZOSTER VACCINE (1 of 2) 2047 HIB VACCINE Aged Out No longer eligi ble based on patient's age to complete this topic HPV VACCINE Aged Out No longer eligi ble based on patient's age to complete this topic MENINGOCOCCAL (Group B) VACC INE SHARED DECISION-MAKING Aged Out No longer eligibl e based on patient's age to complete this topic MENINGOCOCCAL GROUPS A/C/Y/W VACCINE Aged Out No longer eligible b ased on patient's age to complete this topic PNEUMOCOCCAL VACCINE Aged Out No long er eligible based on patient's age to complete this topic Care Teams Metallurgical Or Materials Technician Relationship Specialty Start Date End Date Mary Mariscal MD [address] [facility] [address] [place] [address] PCP - General 01/11/20
--- OUTSIDE RECORDS SUMMARY | 2024-09-30 11:42 | XMS_ITS | Clinical Summary ---
Author Organization [place] [id number] [facility] Address [address] [place] [address] Care Team Providers Care Medical Care Evaluation Specialist Name Role Phone Elijah Armas MD Primary Care Provider [phone] Unknown, Notinfile Unavailable Unavailable Allergies No known [...] on file Legal Sex Female 1:16 AM SENIOR SUPPORT ANALYST Gender Identity Not on file Sexual Orientation [...] 03/14/2024 10:39 PM CDT Plan of Treatment Health Maintenance Due Date Last Done Comments Cervical Cancer Screening 1997 Depression Screening 1997 Hepatitis C Screening 1997 Varicella Vaccines (1 of 2 - 13+ 2-dose series) 2010 Regular Well Visit/Exam 18-64 2015 Covid-19 Vaccine (2023- season) 2024 06/04/2021, 05/14/2021 Influenza Vaccine (#1) 2024 DTaP/Tdap/Td Vaccine (10 - Td or Tdap) 10/01/2033 10/02/2023, 05/14/2020, 04/18/2018, Additional history exists Hepatitis B Screening Completed 01/25/1998 , 1997, 1997, Additional history exists HPV Vaccines Completed 02/22/2015, 01/2014, 08/14/2012 Pneumococcal vaccine <65 Aged Out No longer eligible based on patient's age to complete this topic Insurance [facility] H[facility]/PPO Address: [address] [address] [place] [address] Care Teams Medical Care Evaluation Specialist Relationship Specialty Start Date End Date Elijah Armas MD [address] [facility] [address] [place] [id number] PCP - General Internal Medicine 03/11/24 Unknown, Notinfile 03/11/24
== END 2024-09-30 10:11 | disposition home or self-care (01) ==
PROVIDERS: PCP Physician Assistant; Visit Provider Physician Assistant
DX: M54.50 Low back pain, unspecified (principal); F17.200 Nicotine dependence, unspecified, uncomplicated
CPT/HCPCS: 71046; 72100

== ENCOUNTER 2024-11-11 15:28 | Outpatient (CLI) | payer OTHER, SELFPAY ==
[2024-11-11 15:48] LABS: Hematocrit 38.3 % (37.0-47.0); Hemoglobin 12.6 g/dL (12.0-15.0)
--- OUTSIDE RECORDS SUMMARY | 2024-11-11 16:19 | XMS_ITS | Encounter Summary ---
Author Organization [facility] Address [address] [place] [address] Care Team Providers Care Command And Control Systems Integrator Name Role Phone Mary Mariscal MD Primary Care Provider Encounter Details Date Type Department Care Team (Late st Contact Info) Description 12/25/2019 Lab Requisition [facility] [address] [place] [address] Jasiel Jarvis MD Social History Tobacco Use Types Packs/Day Years Used Date Smoking Tobacco: Former Smokeless Tobacco: Never Alcohol Use Standard Drinks/Week Comments No 0 (1 standard drink = 0.6 oz pur e alcohol) Comments No Sex and Gender Information Value Date Recorded Sex Assigned at Not on file Legal Sex Female 12:06 PM CDT Gender Identity Not on file [...] Not detected, Invalid 12/25/2019 9:19 PM CDT [facility] Microbiology SPECIMEN FROM NASOPHARYNGEAL STRUCTURE / Unknown Collection / Unknown 12/24/2019 1:00 PM CDT 12/25/2019 9:38 AM CDT Narrative [facility] - 12/25/2019 9:19 PM CDT This Real Time RT-PCR assay was developed and its performance characteristics determined by [facility]. This test has been [...] the authorization is terminated or revoked sooner. us Jasiel Jarvis MD LAB - MICROBIOLOGY ORDERABL ES Final Result [facility] [address] [place], [place] [address], [facility] [phone] documented in this encounter Visit Diagnoses Not on filedocumented in this encounter Additional Health Concerns Infection Onset Date Last Indicated Resolved Time COVID-19 Under Investigation 12/24/2019 12/24/2019 12/25/2019 9:19 PM CDT documented as of this encounter Care Teams Command And Control Systems Integrator Relationship Specialty Start Date End Date Mary Mariscal MD [address] [place] [address] PCP - General 01/11/20 documented as of this encounter
--- OUTSIDE RECORDS SUMMARY | 2024-11-11 16:20 | XMS_ITS | Clinical Summary ---
Author Organization [place] [id number] [facility] Address [address] [place] [address] Care Team Providers Care Marine Oiler Name Role Phone Elijah Armas MD Primary Care Provider [phone] Unknown, Notinfile Unavailable Unavailable Allergies No known active allergies Encounters Date Type Department Care Team Description 10/05/2024 1:00 PM CDT - 10/05/2024 11:59 PM CDT Hospital Encounter [facility] [address] [place], [place] [id number] Other forms of dyspnea Discharge Disposition: Discharge to home or self care from Last 3 Months Immunizations Immunization Administration Dates Next Due Tdap [...] on file Legal Sex Female 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[address] INSPECTOR Gender Identity Not on file Sexual Orientation [...] Regular Well Visit/Exam 18-64 2015 Covid-19 Vaccine ( - 2023- season) 2024 06/04/2021, 05/14/2021 Influenza Vaccine (#1) 2024 DTaP/Tdap/Td Vaccine (10 - Td or Tdap) 10/01/2033 10/02/2023, 05/14/2020, 04/18/2018, Additional history exists Hepatitis B Screening Completed 01/25/1998 , 1997, 1997, Additional history exists HPV Vaccines Completed 02/22/2015, 01/2014, 08/14/2012 Pneumococcal vaccine <65 Aged Out No longer eligible based on patient's age to complete this topic Procedures Procedure Name Priority Date/Time Associated Diagnosis Comments STRESS TEST ONLY TREADMILL Routine 10/05/2024 2:27 PM CDT Other forms of dyspnea from Last 3 Months Results * Stress Treadmill Test (10/05/2024 2:27 PM CDT) Anatomical Region Laterality Modality Nuclear Medicine 10/05/2024 1:00 PM CDT Narrative 10/05/2024 4:57 PM CDT [address] [address] EXERCISE STRESS Patient Name: CALE COWART JADE : 1995 Study Date: 10/05/2024 1:00:00 PM Gender: F Tech: sandy cardoza Ref Provider: VANESSA BARAKAT Height(Cm): 160 BSA: 2.35 Weight(Kg): 124 Order Provider: VANESSA BARAKAT PROCEDURES: Stress Report: Treadmill stress Exam. INDICATIONS: R06.09 Other forms of dyspnea. FINDINGS: Procedure Data: Exercise Time: 08:00 Resting HR 81 bpm Peak HR: 177 bpm Predicted Maximal HR 193 bpm Target HR: 164 bpm Percent Max Predicted HR Achieved: 92 % Baseline BP: 144/76 Peak BP: 153/73 METS achieved: 10 Rate-Pressure Product: 22165 BPM*mmHg Max ST: Medications: Free Text. Performed By: Supervising Physician: The Supervising Physician is sayda. Resting ECG: Normal sinus rhythm. Post ECG: No diagnostic ST changes. Arrhythmia: No arrhythmias seen. Exercise Capacity: Good exercise capacity. Target HR Achieved: Target heart rate was achieved. Reason For Termination: Dyspnea. THR achieved. Patient request. CONCLUSIONS: 1. Maximal exercise ECG that is negative for ischemia. Electronically Signed By: Flaco Johansen MD [facility] 10/05/2024 3:43:20 PM CDT Procedure Note Flaco Johansen MD - 10/05/[address] [address] EXERCISE STRESS Patient Name: CALE COWART JADE : 1995 Study Date: 10/05/2024 1:00:00 PM Gender: F Tech: sandy cardoza Ref Provider: VANESSA BARAKAT Height(Cm): 160 BSA: 2.35 Weight(Kg): 124 Order Provider: VANESSA BARAKAT PROCEDURES: Stress Report: Treadmill stress Exam. INDICATIONS: R06.09 Other forms of dyspnea. FINDINGS: Procedure Data: Exercise Time: 08:00 Resting HR 81 bpm Peak HR: 177 bpm Predicted Maximal HR 193 bpm Target HR: 164 bpm Percent Max Predicted HR Achieved: 92 % Baseline BP: 144/76 Peak BP: 153/73 METS achieved: 10 Rate-Pressure Product: 09195 BPM*mmHg Max ST: Medications: Free Text. Performed By: Supervising Physician: The Supervising Physician is sayda. Resting ECG: Normal sinus rhythm. Post ECG: No diagnostic ST changes. Arrhythmia: No arrhythmias seen. Exercise Capacity: Good exercise capacity. Target HR Achieved: Target heart rate was achieved. Reason For Termination: Dyspnea. THR achieved. Patient request. CONCLUSIONS: 1. Maximal exercise ECG that is negative for ischemia. Electronically Signed By: Flaco Johansen MD [facility] 10/05/2024 3:43:20 PM CDT Vanessa DONAHUE CV STRESS PROCEDURES Final Re sult from Last 3 Months Insurance [facility] [id number] CHOICE [facility] H[facility]/PPO Address: [address] [address] [place] [address] Care Teams Marine Oiler Relationship Specialty Start Date End Date Elijah Armas MD [address] [facility] [address] [place] [address] PCP - General Internal Medicine 03/11/24 Unknown, Notinfile 03/11/24
--- OUTSIDE RECORDS SUMMARY | 2024-11-11 16:20 | XMS_ITS | Data Portability ---
Author Organization [facility], Main Office Address [address] [place] [address] Care Team Providers Care Poll Clerk Name Role Phone RICA HOPKINS Primary Care Provider [phone] Assessment No assessment recorded. Plan of Treatment Reminders Order Date Submit Date Provider Last Modified By Organization Details Last Modified Time Details Appointments None recorded. Lab None recorded. Referral None recorded. Procedures None recorded. Surgeries septoplasty (SURG) 2024 025 Not available 12:44:48 endoscopy, nasal/sinus , w/ maxillary antrostomy & tissue removal (SURG) 2024 025 Not available 12:44:48 Imaging None recorded. Medication Orders amoxicillin 875 mg-potassiu m clavulanate 125 mg tablet 2024 025 [facility] #[id number], [address], [place], [id number], 5 12:55:39 Diflucan 150 mg tablet 2024 025 [facility] #22385, [address], [place], [id number], 5 12:55:33 prednisone 20 mg tablet 2023 024 [facility], [address], [place], [id number], 4 15:24:17 levofloxaci n 500 mg tablet 2023 024 [facility] #99988, [address], [place], [id number], 15:24:21 Patient TargetsNo targets recorded. Patient InstructionsNo instructions recorded. Reason for Referral None Reported. Results Created Date Observation Date Name Description Value Unit Range Abnormal Flag Note LastModifiedBy Organization Detail LastModifiedTime 04/07/2004/07/2021 urina lysis , dipst ick Leukocytes (reference range: negative yvette/ l) Negati ve Not Available [facility] [place] [address], [address], [place], [address], 04/07/2021 11:14:23 04/07/2004/07/2021 urina lysis , dipst ick Nitrite (reference rage: negative mg/dl) negati ve Not Available [facility] [place] [address], [address], [place], [address], 04/07/2021 11:14:23 04/07/20 21 04/07/2021 urina lysis , dipst ick Urobilinogen (reference range: 0.2-1 mg/dl) 0.2 Not Available [facility] [place] [address], [address], [place], [address], 04/07/2021 11:14:23 04/07/20 21 04/07/2021 urina lysis , dipst ick Protein (reference range: negative mg/dl) Negati ve Not Available [facility] [place] [address], [address], [place], [address], 04/07/2021 11:14:23 04/07/2004/07/2021 urina lysis , dipst ick pH (reference range: 5-7) 5.0 Not Available [facility] [place] [address], [address], [place], [address], 04/07/2021 11:14:23 04/07/20 21 04/07/2021 urina lysis , dipst ick Blood (reference range: negative Frank/ l) Negati ve Not Available [facility] [place] [address], [address], [place], [address], 04/07/2021 11:14:04/07/20 21 04/07/2021 urina lysis , dipst ick Specific [place] (reference range: 1.005-1.030) 1.000 Not Available [facility] [place] [address], [address], [place], [address], 04/07/2021 11:14:23 04/07/20 21 04/07/2021 urina lysis , dipst ick Ketone (reference range: negative mg/dl) Negati ve Not Available [facility] [place] [address], [address], [place], [address], 04/07/2021 11:14:23 04/07/20 21 04/07/2021 urina lysis , dipst ick Bilirubin (reference range: negative mg/dl) Negati ve Not Available [facility] [place] [address], [address], [place], [address], 04/07/2021 11:14:23 04/07/20 21 04/07/2021 urina lysis , dipst ick Glucose (reference range: negative mg/dl) Negati ve Not Available [facility] [place] [address], [place], [address], 04/07/2021 11:14:23 04/07/20 21 04/07/2021 urina lysis , dipst ick Appearance Clear Not Available [facility] [place] [address], [address], [place], [address], 04/07/2021 11:14:23 04/07/20 21 04/07/2021 urina lysis , dipst ick Color Pale Yellow Not Available [facility] [place] [address], [address], [place], [address], 04/07/2021 11:14:23 10/10/1910/09/2024 URINE HCG QUAL/ POINT OF CARE point of care urine preg negati ve negati ve Not Available [facility] (Lab) [address] [place], [address], 10/09/2024 10:47:29 04/28/2003/15/2024 CT, head + brain , w/o contr ast No observ ation record ed. Not Available 2023 18:55:58 05/06/2005/05/2024 CT, sinus es, w/o contr ast No observ ation record ed. [facility] [address], [place], [address], 05/07/2024 10:04:57 05/08/2005/05/2024 CT, sinus es, w/o contr ast No observ ation record ed. [email or web address] [facility] [address], [place], [address], 05/12/2024 13:23:58 Result Notes None recorded. Problems Name Problem SNOMED Code Status Onset Date Resolution Date Notes Provider Name and Address Organization Details Recorded Time 26554552 Completed 201704/18/2018 Not Available [facility] 3 19:30:20 Chronic left maxillary sinusitis 75356360501 220431 Active 2023 SORAIDA Zhou [address], [address], [place], [address] , [facility] 4 12:49:35 Hypertrop hy of tonsils 45299431 Active 2023 SORAIDA Zhuo [address], [place], [address] , [facility] [email or web address] [facility] 4 12:50:56 Chronic tonsillit is 28192552 Active 2023 Mason Mckeon MD [address], [place], [address] , [facility] 4 15:41:03 Chronic sinusitis 02369107 Active 2023 Avis Brower RN [facility], [facility] [employer] [facility] 4 18:16:24 Chronic maxillary sinusitis 86305281 Active 2024 Mason Mckeon MD [address], [place], [address] , [facility] [email or web address] [facility] 5 14:58:29 Deviated nasal septum 595410093 Active 2024 Mason Mckeon MD [address], [place], [address] , [facility] 5 14:58:38 Problem Notes None recorded. Procedures Surgical History Date Name Laterality Status Provider Name and Address Organization Details Recorded Time 10/10/19 25 nasal septoplasty completed [place]ON Lam [place] [employer] [facility] 10/21/2024 09:09:40 10/10/19 25 nasal endoscopy with maxillary antrostomy completed MASON Lam [place] [employer] [facility] 10/21/2024 09:09:56 10/10/19 25 SEPTOPLASTY (SURG) completed MASON Lam [place] [employer] [facility] 10/21/2024 09:53:52 10/03/19 19 Date of Last Pap Smear completed Not Available [facility] 09/12/2022 19:28:38 deep biopsy of soft tissue of back completed Not Available [facility] 09/12/2022 19:28:38 Mirena, 52 mg completed Not Available [facility] 09/12/2022 19:28:38 Imaging Results Imaging Date Name Status LastModified by Organiz ation Details LastModified Time 03/15/2024 CT, head + brain, w/o contrast completed Information not available 04/28/2024 18:55:58 05/05/2024 CT, sinuses, w/o contrast completed [facility] [address], [place], [address], 05/07/2024 10:04:57 05/05/2024 CT, sinuses, w/o contrast completed [facility] [address], [place], [address], 05/12/2024 13:23:58 Procedure Notes None recorded. Medical Equipment None Reported. Allergies Allergen ID Allergen Name Allergen Category Reaction Reaction Severity Criticality Documentation Date Start Date Code Code System Note Provider Name and Address Organization Details Recorded Time 90857 Benadryl medicatio n other Not available Not available 04/01/202445103 7 RxNorm body burni ng BRY Alatorre - [place] [employer] 10:46:42 Medications Name Sig Start Date Stop [...] Available Not Available fluconazole 150 mg tablet TAKE 1 TABLET BY MOUTH EVERY DAY active Not Available Not Available No t Available hydrocodone 5 mg-acetamin ophen 325 mg [...] Not Available Not Available Not Available hydrocodone 7.5 mg-acetamin ophen 325 mg tablet TAKE 1 TABLET BY MOUTH EVERY 4 HOURS NEEDED FOR PAIN 10/21 completed Not Available Not Available Not Available [...] 875 mg-potassiu m clavulanate 125 mg tablet TAKE 1 TABLET BY MOUTH EVERY 12 HOURS FOR 10 DAYS active Not Available Not [...] completed Not Available Not Available Not Available bupropion HCl XL 150 mg 24 hr tablet, extended release TAKE 1 TABLET BY MOUTH DAILY active Not Available Not Available No t Available zonisamide 50 mg capsule 06/28 completed Not Available Not Available Not Available Tri-Sprinte c (28) 0.18 mg(7)/0.215 mg(7)/0.25 mg(7)-0.035 mg tablet TAKE 1 TABLET BY MOUTH EVERY DAY active Not Available Not Available No t Available riboflavin (vitamin B2) 400 mg tablet TK 1 T PO QD FOR LINDSEY PREVENTIO N 05/13 completed Not Available Not Available Not Available Vitals Date Recorded Body mass index (BMI) Body height Body temperature Body weight Systolic blood pressure Diastolic blood pressure Provider Name and Address Organization Details Last Updated DateTime 1 19.1 kg/m2 160.02 cm 98 [degF] 45055.9 8 g 110 mm[Hg] 61 mm[Hg] Not Available [employer] 3 19:29:25 Date Recorded Body height Body mass index (BMI) Body weight Body temperature Provider Name and Address Organization Details Last Updated DateTime 04/01/2024 160.02 cm 22.5 kg/m2 78755.95 g 98 [degF] Avis Brower RN [facility] 04/01/2024 12:15:45 Date Recorded Body height Body mass index (BMI) Body weight Body temperature Provider Name and Address Organization Details Last Updated DateTime 04/15/2024 160.02 cm 22.1 kg/m2 35809.05 g 98 [degF] Avis Brower RN [facility] 04/15/2024 15:28:04 Date Recorded Body height Body mass index (BMI) Body weight Body temperature Provider Name and Address Organization Details Last Updated DateTime 09/10/2024 160.02 cm 22 kg/m2 58828.89 g 98 [degF] Mally Hernandez CNA [place] [employer] 09/10/2024 14:50:01 Date Recorded Body height Body mass index (BMI) Body weight Body temperature Provider Name and Address Organization Details Last Updated DateTime 10/21/2024 160.02 cm 22 kg/m2 27381.45 g 97.4 [degF] Avis Brower RN [facility] 10/21/2024 12:36:22 Social History Question Answer Notes LastModified by Organizat ion Details LastModified Time Tobacco Smoking Status Former Smoker Nayeli Fitzgerald [place], [place] [email or web address] [facility] [employer] 04/01/2024 10:47:52 What Is Your Level Of Alcohol Consumption? Occasional [email or web address] Information not available 04/01/2024 When Did You Quit Smoking? 1-5yearssintea valdez [email or web address] Information not available 04/01/2024 Sex: Unknown Functional Status None recorded. Mental Status None recorded. Family History Nothing Reported Notes:MATERAL GRANDMOTHER LINDSEY D SOMETHING REMOVED FROM NOSE Medical History Condition Response MRSA N ALLERGIES/HAYFEVER N BACK INJECTIONS N LUNG DISEASE/DISORDER N ESRD N HISTORY OF DRUG ABUSE N INSOMNIA N RADIATION / CHEMOTHERAPY N COPD N HIGH CHOLESTEROL / HYPERLIPIDEMIA N HYPERTHYROIDISM N PVD N BLOOD DISEASES N EAR OR HEARING PROBLEMS N HYPOTHYROIDISM N SHINGLES N DEPRESSION (INCLUDING POST ) N BACK / NECK PROBLEMS N HAVE YOU BEEN HOSPITALIZED OR SEEN IN [facility] IN THE PAST YEAR ? N FAILED [...] N SLEEP DISORDER N ARTERIAL INSUFFICIENCY N SEIZURES/EPILEPSY Y HEADACHES/MIGRAINES N CHF N PACEMAKER N DIZZINESS N HEART DISEASE/HEART PROBLEMS N AIDS/HIV N NEUROPSYCHOLOGICAL N HYPERTENSION N CANCER: SPECIFY N TOURETTE'S N BLOOD TRANSFUSION N ANEMIA/BLOOD DISORDER N ANESTHESIA COMPLICATIONS N CHRONIC EAR INFECTIONS N ATRIAL FIBRILLATION [...] SNOMED-CT Code Diagnosis ICD10 Code Diagnosis Note [id number] [facility] ic_[facility] _ATHENA_M IGRATION_ DEFAULT_1 _1 , 04/07/2021 00:00:00 04/07/2021 15:03:25 [id number] Mason Mckeon MD [facility] [place] [address] [place] [address] 04/01/2024 12:05:50 04/01/2024 12:53:51 Chronic left maxillary sinusitis 2374482799 1826446 J32.0 Hypertroph y of tonsils 27317642 J35.1 SHE WILL DISCUSS TONSILLECT ANTHONY AT HER SURGICAL CONSULTATI ON WITH DR. MCKEON. [id number] Mason Mckeon MD [facility] [place] [address] [place] [address] 04/15/2024 15:15:38 04/17/2024 14:53:21 Chronic left maxillary sinusitis 7412783109 8629850 J32.0 Chronic tonsillitis 9097 9004 J35.01 [id number] Mason Mckeon MD [facility] [place] [address] [place] [address] 09/10/2024 14:42:06 09/11/2024 13:21:50 Chronic maxillary sinusitis 00035309 J32.0 Deviated nasal septum 12 7123093 J34.2 [id number] Mason Mckeon MD [facility] [place] [address] [place] [address] 10/21/2024 12:32:40 10/21/2024 12:58:18 Chronic left maxillary sinusitis 7250321680 0143746 J32.0 Postoperative visit 1836 30528 Z48.89 10/09/2024 postoperat ranjeet from a septoplast y and maxillary antrostomy with navigation bilaterall y. Health Concerns Section Related Observation LastModified by Organization Detai ls LastModified Time None Recorded Concern Status LastModified by Organization Details LastModified Time None Recorded Advance Directives Directive None Recorded Payers Encounter Date Sequence Insurance Name Policy Number Policy Branham Covered Member ID Branham Member ID Guarantor Name 04/01/2024 1 [facility] [id number] Geovanny Dominique [id number] Cale Savageon 04/15/2024 1 [facility] [id number] Geovanny Dominique [id number] Cale Savageon 09/10/2024 1 [facility] (MEDICAID HMO) [id number] Cale Ortiz Emerson [id number] Cale Savageon 10/21/2024 1 [facility] (MEDICAID HMO) [id number] 0003 Cale Ortiz Emerson [id number] Cale Dominique Notes Date Note Type Note Provider Name and Address Organization Details Recorded Time 04/01/2024 text/html this patient presents with no significant past medical history. She reports sinus congestion pressure and left otalgia. She reports her sinus congestion was onset approximately 1 year ago. She does report malodorous mucus. She had a CT of her sinuses completed at [facility] 2 weeks ago revealing a complete left [...] She does report snoring during her sleep. SORAIDA Zhou [address], [place], [address], [employer] 04/01/2024 12:53:22 04/15/2024 text/html this patient had a CT scan demonstrated opacified left maxillary sinus possibly consistent with fungal sinusitis. Antibiotics have been ineffective and she has foul drainage and a foul smell routinely. In addition she has cryptic tonsils with tonsil stones. Mason Mckeon MD [address], [place], [address], [employer] 04/15/2024 15:41:37 09/10/2024 text/html This patient is scheduled for left antrostomy for opacified left maxillary sinus on CT. However she complains of right-sided congestion as well which is worsening. On CT there was right septal deviation. She is also interested in having the right side opens the same time to avoid this in the future Mason Mckeon MD [address] [facility] [facility] [address], [place], [address], [employer] [facility] [employer] [facility] 09/10/2024 14:59:05 10/21/2024 text/html This patient presents to the office for a postoperative visit from a septoplasty and bilateral maxillary antrostomy with navigation that was completed on 10/09/2024. She does report gently blowing her nose without difficulties. She continues to report increasing congestion and purulent, malodorous mucus discharge. According to the operative reports there was a malodor material that was irrigated from the left maxillary sinus. She states that she was unaware that she was supposed to be using sinus rinses and has not been doing this postoperatively. SORAIDA Zhou [address] [facility] [facility] [address], [place], [address], [employer] [facility] 10/21/2024 12:57:51 OBGyn Episode No OBEpisode recorded.
--- OUTSIDE RECORDS SUMMARY | 2024-11-11 16:20 | XMS_ITS | Clinical Summary ---
Author Organization [facility] Address [address] [place] [address] Care Team Providers Care Food Mixer Assembler Name Role Phone Mary Mariscal MD Primary Care Provider [phone] Source Comments [facility] Affiliates and Associated Physician Practices is amultiple site organization consisting of ambulatory clinics and hospital sitesin [place], [place], [place] and [place]. This disclosure is being madepursuant to the Care Everywhere program and may not contain all information available regarding this patient. Last updated 18.[facility] [employer] Allergies No known active allergies Medications * Be aware that medications may not be up to date on this document. Alwaysverify current medications with the patient. lamoTRIgine (LAMICTAL) 25 MG tabletIndicati ons:Atonic Seizures Take 50 mg by mouth 2 times daily Reasons: Seizures with Sudden Loss of Muscle Tone Active Bdsuakvf-Ppg-T e-FA ( VITAMIN WITH IRON) tablet Take 1 tablet by mouth once daily Active folic acid (FOLVITE) 1 MG tablet Take 1 mg by mouth once daily Active Riboflavin 400 MGIndications: Headache prevention Take 1 tablet by mouth once daily Reasons: Headache prevention 30 tablet 4 8 Active Cholecalcifero l (VITAMIN D3) 400 UNITS tablet Take 400 [...] Lamictal Neurolgist: Dr Gupta CT brain NEG (2016) Manic depression 03/05/2018 Overview (03/05/2018): Manic Depression - non medicated Psychiatry through [facility] Supervision of high-risk of young prim igravida [...] - 19+ 3-dose series) 2016 COVID-19 VACCINE (1 - 2023-2 5 season) 2024 INFLUENZA VACCINE (Season Ended) 2025 ZOSTER VACCINE (1 of 2) 2047 HIB [...] patient's age to complete this topic Insurance [facility] SELF PAY NO INSURANCE Member Subscriber Plan / Payer (Ef fective for All Dates) Name:Cale Cowart Member ID:Not on file Relation to Subscriber:Not on file Name:CALE COWART Subscriber ID:Not on file Address: [address] [place] [address] Payer ID:Not on file Group ID:Not on file Type:Self Pay Address: [facility] SELF PAY NO INSURANCE Member Subscriber Plan / Payer (Ef fective for All Dates) Name:Cale Cowart Member ID:Not on file Relation to Subscriber:Not on file Name:CALE COWART Subscriber ID:Not on file Address: [address] Payer ID:Not on file Group ID:Not on file Type:Self Pay Address: [facility] Member Subscriber Plan / Payer (Ef fective 2023-Present) Name:Cale Cowart Relation to Subscriber:Spouse Name:MALICK COWART Date of :1999 (Home) Address: [address] [place] [address] Payer ID:[id number] (NAIC) Type:HMO Address: [place] [id number] Member Subscriber Plan / Payer (Ef fective for All Dates) Name:Cale Cowart Member ID:Not on file Relation to Subscriber:Not on file Name:CALE COWART Subscriber ID:Not on file Address: [address] [place] [id number] Payer ID:Not on file Group ID:Not on file Type:Self Pay Address: [facility] Member Subscriber Plan / Payer (Ef fective 2023-Present) Name:Cale Cowart Relation to Subscriber:Spouse Name:MALICK COWRAT Date of :1999 (Home) Address: [address] [place] [address] Payer ID:[id number] (NAIC) Type:HMO Address: [place] [phone] Care Teams Food Mixer Assembler Relationship Specialty Start Date End Date Mary Mariscal MD [address] [place] [address] PCP - General 01/11/20
--- OUTSIDE RECORDS SUMMARY | 2024-11-11 16:20 | XMS_ITS | Referral Summary ---
Author Organization [place] [id number] [facility] Address [address] [place] [address] Care Team Providers Care Mapping Supervisor Name Role Phone Elijah Armas MD Primary Care Provider [phone] Unknown, Notinfile Unavailable Unavailable Encounters Date Type Department Care Team Description 10/05/2024 1:00 PM CDT - 10/05/2024 11:59 PM CDT Hospital Encounter [facility] Cardiology [address] [place], [place] [id number] Other forms of dyspnea Discharge Disposition: Discharge to home or self care from Last 3 Months Allergies No known active allergies Immunizations Immunization [...] on file 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 Gender Identity Not on file Sexual Orientation [...] CDT Plan of Treatment Not on file Procedures Procedure Name Priority Date/Time Associated Diagnosis Comments STRESS TEST ONLY TREADMILL Routine 10/05/2024 2:27 PM CDT Other forms of dyspnea from Last 3 Months Results * Stress Treadmill Test (10/05/2024 2:27 PM CDT) Anatomical Region Laterality Modality Nuclear Medicine 10/05/2024 1:00 PM CDT Narrative 10/05/2024 4:57 PM CDT [address] [address] EXERCISE STRESS Patient Name: CALE COWART JADE : 1995 Study Date: 10/05/2024 1:00:00 PM Gender: F Tech: sandy Owens Provider: VANESSA BARAKAT Height(Cm): 160 BSA: 2.35 [...] BP: 153/73 METS achieved: 10 Rate-Pressure Product: 48676 BPM*mmHg Max ST: Medications: Free Text. Performed [...] negative for ischemia. Electronically Signed By: Flaco DAWKINS 10/05/2024 3:43:20 PM CDT Procedure Note Flaco Johansen MD - 10/05/[address] [address] EXERCISE STRESS Patient Name: CALE COWART JADE : 1995 Study Date: 10/05/2024 1:00:00 PM Gender: F Tech: sandy Owens Provider: VANESSA BARAKAT Height(Cm): 160 BSA: 2.35 [...] BP: 153/73 METS achieved: 10 Rate-Pressure Product: 87217 BPM*mmHg Max ST: Medications: Free Text. Performed [...] negative for ischemia. Electronically Signed By: Flaco DAWKINS 10/05/2024 3:43:20 PM CDT Vanessa DONAHUE CV STRESS PROCEDURES Final Re sult from Last 3 Months Insurance [facility] CHOICE PLUS Care Teams Mapping Supervisor Relationship Specialty Start Date End Date Elijah Armas MD [address] [facility] [address] [place] [address] PCP - General Internal Medicine 03/11/24 Unknown, Notinfile 03/11/24
--- OUTSIDE RECORDS SUMMARY | 2024-11-11 16:20 | XMS_ITS | Clinical Summary ---
Author Organization [facility] Address [address] [place] [address] Care Team Providers Care Cracking Still Operator Name Role Phone Elijah Armas MD Primary Care Provider [phone] Medications levonorgestrel (KYLEENA) 19.5 MG IUD 1 each (19.5 mg total) by Intrauterine route once. Active lamoTRIgine (LAMICTAL) 25 MG tabletIndicatio ns:Bipolar disorder, current episode manic without psychotic features, severe (CMS/[facility] HHS/HCC),Seizur e (CMS/HCC HHS/HCC) Take 1 tablet [...] COVID-19 Vaccine ( season) 2024 06/04/2021, 05/14/2021 PHQ-2 (Physician [place]) 07/15/2024 03/10/2024 DTaP, Tdap and Td Vaccines [...] 5 Years) and At-Risk Patients (6 to 49 Years) Aged Out No longer eligible based on patient's age to complete this topic RSV Immunizations Under 20 Months Aged Out No longer eligible based on patient's age to complete this topic Insurance [facility] Care Teams Cracking Still Operator Relationship Specialty Start Date End Date Elijah Armas MD [address] [address] PCP - General INTERNAL MEDICINE 03/09/24
== END 2024-11-11 15:29 | disposition home or self-care (01) ==
PROVIDERS: PCP Physician Assistant; Visit Provider Obstetrics & Gynecology
DX: N92.6 Irregular menstruation, unspecified (principal)
CPT/HCPCS: 36415; 85014; 85018

== ENCOUNTER 2024-11-13 01:36 | Day surgery (SDC) | payer OTHER, SELFPAY ==
--- NOTE | 2024-11-10 11:40 | P.HP_ITS ---
H&P: HPI History of Present Illness Date/Time: 11/10/24 11:40 Chief Complaint: Desires permanent sterilization and excessive heavy bleeding Narrative: This is a 29-year-old multiparous patient admitted for sterilization hysteroscopy/dilatation curettage/Cassandra ablation. She desires permanent and irreversible sterilization. Alternatives were reviewed. In light of her heavy bleeding she would also like to undergo the Cassandra ablation with hysteroscopy. Risks and benefits reviewed including but not exclusive of , aspiration pneumonia, bleeding, transfusion, perforation injury to bowel, bladder, ureters, or other internal organs with need for open laparotomy. She received the ACOG handouts entitled hysteroscopy as well as dilatation and curettage as well as laparoscopy. She received the Cassandra handout. She had all questions answered to her satisfaction. She asked to proceed PMFSH Past Medical History Medical History 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 Encounter for screening examination for sexually transmitted disease Encounter for biopsy 2011 soft tissue of back--benign Encounter for IUD removal (04/07/21) Encounter for IUD insertion (07/15/20) Seizure hypertension Manic depression Surgical History Surgical History No history of previous surgery Family History Family History Mother Malignant tumor of cervix Other Malignant tumor of cervix maternal aunt Social History Social History Smoking status: Former smoker Tobacco type: e-cigarettes/vaping Alcohol intake: current Alcohol use details: 1 x month Substance use: never Substance use type: does not use Do You Feel Safe in your Home?: No Lack of Transportation: No Lack of Food: Never True Current Housing: I Have Housing Concerned About Future Housing: No Difficulty Paying Gas/Electric Bills: No Difficulty Paying for Meds: No Currently Unemployed: No Education: High School Diploma/GED Difficulty w/ Childcare or Family Care: No Living arrangements: other Additional living arrangements comments: Occupation/Education: occupation 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 There is no relevant family history pertinent to the patient complaint. Meds Home Medications and Allergies Home Medications ?Medication ?Instructions ?Recorded ?Confirmed ?Type naproxen 500 mg tablet 500 mg PO BID #14 tabs 04/23/24 Rx Allergies Allergy/AdvReac Type Severity Reaction Status Date / Time No Known Allergies Allergy Verified 04/23/24 17:11 Exam Const: General: cooperative, healthy appearing, comfortable and well groomed Nutritional Appearance: average body habitus Orientation/consciousness: oriented to person, oriented to place and oriented to time HENMT: Head: normal to inspection Resp: Effort & Inspection: normal respiratory effort Cardio: Rate: regular rate Rhythm: regular rhythm Heart sounds: S1 normal heart sound present and S2 normal heart sound present GI: Inspection: normal to inspection Auscultation: normal bowel sounds : External Female Exam: normal external appearance Speculum Exam - Vagina: normal appearance of the vagina Speculum Exam - Cervix: normal appearance of the cervix Bimanual exam- vagina & uterus: uterine shape normal Bimanual Exam- Adnexa, other: normal adnexae Assessment and Plan Assessment and plan (1) Sterilization: Code(s): Z30.2 - Encounter for sterilization Status: Acute (2) Irregular bleeding: Code(s): N92.6 - Irregular menstruation, unspecified Status: Acute Plan Proceed with laparoscopic bilateral salpingectomy/hysteroscopy/dilatation curettage/Cassandra ablation
[2024-11-10 14:06] VITALS: BMI 22.4
--- NOTE | 2024-11-10 14:17 | PC.NURSE ---
Report to the Outpatient Waiting Room, entrance under the green pavilion located off [facility], at time _0730_ on date _[id number]_. Planned Procedure Time: _0930_.? Time changes happen often and if your time is changed the preop area will call you the afternoon before. - You and your visitor will be asked to self-screen and do not enter if you have any COVID symptoms. Please call surgeon if you need to reschedule. - A mask is optional within the hospital at this time. Patients may have clear liquids (water, carbonated beverages, clear teas, apple juice) until 3 hours prior to surgery with a maximum of 20 ounces. - No food from midnight until time of surgery and no smoking, or chewing tobacco (or any form of nicotine). No chewing gum, candy or mints. Take only the following medications with a SIP of water on the morning of surgery: __Augmentin if still taking.___ DO NOT STOP ANY OF YOUR OTHER PRESCRIPTION MEDICATIONS PRIOR TO SURGERY EXCEPT THE FOLLOWING Hold all vitamins and supplements for 3 days per anesthesiologist. Medications to discontinue per physician Date to take last dose Please no make-up, nail mongolian, hairspray, perfume, deodorant, or body powder the day of surgery.? No jewelry (including any body piercings) or valuables the day of surgery, leave them at home.? Please take a shower or bath the night before, or the morning of, surgery with an antibacterial soap.? Wear comfortable, loose fitting clothing. - Jewelry must be removed prior to entering the operating room.? Rings and piercings that are not removed may be cut off. - The hospital will not accept responsibility for valuables.? - Please leave all valuables, including medications, at home the day of surgery. If you are going home after surgery, a licensed national dedicated truck driver must drive you home.? - NO public transportation without another adult if you receive anesthesia. - We recommend that an adult stay with you for 24 hours following discharge. - We also recommend that you do not drive, make important decision, drink alcoholic beverages, or take any drugs that were not prescribed by your health care provider for at least 24 hours after your discharge time. Follow any additional instructions given to you from your surgeon. Telephone instructions given to _Caddie___and asked if any additional questions and then verbalized understanding. Patient advised to call surgeon office or pre surgery nurse liaison [phone] if any additional questions.
[2024-11-13] VITALS (10 sets, daily range): BP systolic 94–117; BP diastolic 50–73; PULSE 60–106; RESP 12–20; TEMP 36.1–36.7; O2SAT 95–100; BMI 21.9
--- OUTSIDE RECORDS SUMMARY | 2024-11-13 01:39 | XMS_ITS | Clinical Summary ---
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 Performed [...] ischemia. Electronically Signed By: Flaco Johansen MD [facility] 10/05/2024 3:43:20 PM CDT Procedure Note Flaco Johansen MD - 10/05/[address] [address] EXERCISE STRESS Patient Name: CALE COWART JADE [...] BP: 153/73 METS achieved: 10 Rate-Pressure Product: 02515 BPM*mmHg Max ST: Medications: Free Text. Performed [...] ischemia. Electronically Signed By: Flaco Johansen MD [facility] 10/05/2024 3:43:20 PM CDT Vanessa DONAHUE CV STRESS PROCEDURES Final Re sult from Last 3 Months Insurance [facility] [id number] CHOICE PLUS Care Teams Metal Door Assembler Relationship Specialty Start Date End Date Elijah Armas MD [address] [facility] [address] [place] [address] PCP - General Internal Medicine 03/11/24 Unknown, Notinfile 03/11/24
--- OUTSIDE RECORDS SUMMARY | 2024-11-13 01:39 | XMS_ITS | Referral Summary ---
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 Performed [...] Procedure Note Flaco Johansen MD - 10/05/[address] [address] EXERCISE STRESS Patient Name: CALE COWART JADE [...] BP: 153/73 METS achieved: 10 Rate-Pressure Product: 44542 BPM*mmHg Max ST: Medications: Free Text. Performed [...] Re sult from Last 3 Months Insurance [facility] CHOICE PLUS Care Teams Material Analyst Relationship Specialty Start Date End Date Elijah Armas MD [address] [facility] [address] [place] [address] PCP - General Internal Medicine 03/11/24 Unknown, Notinfile 03/11/24
--- OUTSIDE RECORDS SUMMARY | 2024-11-13 01:39 | XMS_ITS | Clinical Summary ---
Author Organization [facility] Address [address] [place] [address] Care Team Providers Care Cell Changer Name Role Phone Elijah Armas MD Primary Care Provider [phone] Medications levonorgestrel (KYLEENA) 19.5 MG IUD 1 [...] ( season) 2024 06/04/2021, 05/14/2021 PHQ-2 (Physician [place]) 07/15/2024 03/10/2024 DTaP, Tdap and Td Vaccines [...] patient's age to complete this topic Insurance [facility] Care Teams Cell Changer Relationship Specialty Start Date End Date Elijah Armas MD [address] [address] PCP - General INTERNAL MEDICINE 03/09/24
--- OUTSIDE RECORDS SUMMARY | 2024-11-13 01:39 | XMS_ITS | Clinical Summary ---
Author Organization [facility] Address [address] [place] [address] Care Team Providers Care Clerk Guide Name Role Phone Mary Mariscal MD Primary Care Provider [phone] Source Comments [facility],non-[facility] Affiliates and Associated Physician Practices is amultiple site organization consisting of ambulatory clinics and hospital sitesin [place], [place], [place] and [place]. This disclosure is being madepursuant to the Care Everywhere program and may not contain all information available regarding this patient. Last updated 18.[facility] Allergies No known active allergies Medications * Be aware that medications may not be up to date on this document. Alwaysverify current medications with the patient. lamoTRIgine (LAMICTAL) 25 MG tabletIndicati ons:Atonic Seizures Take 50 mg by mouth 2 times daily Reasons: Seizures with Sudden Loss of Muscle Tone Active Keaevudo-Obc-W e-FA ( VITAMIN WITH IRON) tablet Take [...] Manic Depression - non medicated Psychiatry through [facility] Supervision of high-risk of young prim igravida [...] patient's age to complete this topic Insurance [facility] SELF PAY NO INSURANCE Member Subscriber Plan / Payer (Ef fective for All Dates) Name:Cale Cowart Member ID:Not on file Relation to Subscriber:Not on file Name:CALE COWART Subscriber ID:Not on file Address: [address] [place] [address] Payer ID:Not on file Group ID:Not on file Type:Self Pay Address: [facility] SELF PAY NO INSURANCE Member Subscriber Plan / Payer (Ef fective for All Dates) Name:Cale Cowart Member ID:Not on file Relation to Subscriber:Not on file Name:CALE COWART Subscriber ID:Not on file Address: [address] Payer ID:Not on file Group ID:Not on file Type:Self Pay Address: [facility] Member Subscriber Plan / Payer (Ef fective 2023-Present) Name:Cale Cowart Relation to Subscriber:Spouse Name:MALICK COWART Date of :1999 (Home) Address: [address] [place] [address] Payer ID:[id number] (NAIC) Type:HMO Address: [place] [id number] Member Subscriber Plan / Payer (Ef fective for All Dates) Name:Cale Cowart Member ID:Not on file Relation to Subscriber:Not on file Name:CALE COWART Subscriber ID:Not on file Address: [place] [id number] Payer ID:Not on file Group ID:Not on file Type:Self Pay Address: [facility] Member Subscriber Plan / Payer (Ef fective 2023-Present) Name:Cale Cowart Relation to Subscriber:Spouse Name:MALICK COWART Date of :1999 (Home) Address: [address] [place] [address] Payer ID:[id number] (NAIC) Type:HMO Address: [place] [phone] Care Teams Clerk Guide Relationship Specialty Start Date End Date Mary Mariscal MD [address] [place] [address] PCP - General 01/11/20
--- OUTSIDE RECORDS SUMMARY | 2024-11-13 01:39 | XMS_ITS | Data Portability ---
Author Organization [facility] [employer], Main Office Address [address] [place] [address] Care Team Providers Care Lead Python Developer Name Role Phone RICA HOPKINS Primary Care [...] m clavulanate 125 mg tablet 2024 025 [id number], [address], [place], [id number], 5 12:55:39 Diflucan 150 mg tablet 2024 025 [email or web address]58366, [address], [place], [id number], 5 12:55:33 prednisone 20 mg tablet 2023 024 [facility], [address], [place], [id number], 4 15:24:17 levofloxaci n 500 mg tablet 2023 024 [facility]55969, [address], [place], [id number], 15:24:21 Patient TargetsNo targets recorded. Patient InstructionsNo instructions recorded. Reason for Referral None Reported. Results Created Date Observation Date Name Description Value Unit Range Abnormal Flag Note LastModifiedBy Organization Detail LastModifiedTime 04/07/2004/07/2021 urina lysis , dipst ick Leukocytes (reference range: negative yvette/ l) Negati ve Not Available [facility] [place] [address], [place], [address], 04/07/2021 11:14:23 04/07/2004/07/2021 urina lysis , dipst ick Nitrite (reference rage: negative mg/dl) negati ve Not Available [facility] [place] [address], [address], [place], [address], 04/07/2021 11:14:23 04/07/20 21 04/07/2021 urina lysis , dipst ick Urobilinogen (reference range: 0.2-1 mg/dl) 0.2 Not Available [facility] [place] [address], [place], [address], 04/07/2021 11:14:23 04/07/20 21 04/07/2021 urina lysis , dipst ick Protein (reference range: negative mg/dl) Negati ve Not Available [facility] [place] [address], [place], [address], 04/07/2021 11:14:23 04/07/2004/07/2021 urina lysis , dipst ick pH (reference range: 5-7) 5.0 Not Available [facility] [place] [address], [place], [address], 04/07/2021 11:14:23 04/07/20 21 04/07/2021 urina lysis , dipst ick Blood (reference range: negative Frank/ l) Negati ve Not Available [facility] [place] [address], [place], [address], 04/07/2021 11:14:04/07/20 21 04/07/2021 urina lysis , dipst ick Specific [place] (reference range: 1.005-1.030) 1.000 Not Available [facility] [place] [address], [place], [address], 04/07/2021 11:14:23 04/07/20 21 04/07/2021 urina lysis , dipst ick Ketone (reference range: negative mg/dl) Negati ve Not Available [facility] [place] [address], [place], [address], 04/07/2021 11:14:23 04/07/20 21 04/07/2021 urina lysis , dipst ick Bilirubin (reference range: negative mg/dl) Negati ve Not Available [facility] [place] [address], [place], [address], 04/07/2021 11:14:23 04/07/20 21 04/07/2021 urina lysis , dipst ick Glucose (reference range: negative mg/dl) Negati ve Not Available [facility] [place] [address], [place], [address], 04/07/2021 11:14:23 04/07/20 21 04/07/2021 urina lysis , dipst ick Appearance Clear Not Available [facility] [place] [address], [place], [address], 04/07/2021 11:14:23 04/07/20 21 04/07/2021 urina lysis , dipst ick Color Pale Yellow Not Available [facility] [place] [address], [place], [address], 04/07/2021 11:14:23 10/10/1910/09/2024 URINE HCG QUAL/ POINT OF CARE point of care urine preg negati ve negati ve Not Available [facility] (Lab) [address] [place], [address], 10/09/2024 10:47:29 04/28/2003/15/2024 CT, head + brain , w/o contr ast No observ ation record ed. Not Available 2023 18:55:58 05/06/2005/05/2024 CT, sinus es, w/o contr ast No observ ation record ed. [facility] [address], [place], [address], 05/07/2024 10:04:57 05/08/2005/05/2024 CT, sinus es, w/o contr ast No observ ation record ed. [email or web address] [facility] [address], [place], [address], 05/12/2024 13:23:58 Result Notes None recorded. Problems Name Problem SNOMED Code Status Onset Date Resolution Date Notes Provider Name and Address Organization Details Recorded Time 51142627 Completed 201704/18/2018 Not Available [facility] 3 19:30:20 Chronic left maxillary sinusitis 08963010867 736373 Active 2023 SORAIDA Zhou [address], [address], [place], [address] , [facility] 4 12:49:35 Hypertrop hy of tonsils 57431664 Active 2023 SORAIDA Zhou [address], [address], [place], [address] , [facility] [employer] [facility] 4 12:50:56 Chronic tonsillit is 41285479 Active 2023 Mason Mckeon MD [address], [address], [place], [address] , [facility] 4 15:41:03 Chronic sinusitis 57004608 Active 2023 Avis Brower RN [facility], [facility] [employer] [facility] 4 18:16:24 Chronic maxillary sinusitis 45990141 Active 2024 Mason Mckeon MD [address], [address], [place], [address] , [facility] [employer] [facility] 5 14:58:29 Deviated nasal septum 213628223 Active 2024 Mason Mckeon MD [address] [facility] [address], [place], [address] , [facility] 5 14:58:38 Problem Notes None recorded. Procedures Surgical History Date Name Laterality Status Provider Name and Address Organization Details Recorded Time 10/10/19 25 nasal septoplasty completed [place] Lam [facility] [place] [employer] [facility] 10/21/2024 09:09:40 10/10/19 25 nasal endoscopy with maxillary antrostomy completed [place] Lam Maximus [place] [employer] [facility] 10/21/2024 09:09:56 10/10/19 25 SEPTOPLASTY (SURG) completed [place] Lam [facility] [place] [employer] 10/21/2024 09:53:52 10/03/19 19 Date of Last Pap Smear completed Not Available [facility] 09/12/2022 19:28:38 deep biopsy of soft tissue of back completed Not Available [facility] 09/12/2022 19:28:38 Mirena, 52 mg completed Not Available [facility] 09/12/2022 19:28:38 Imaging Results Imaging Date Name Status LastModified by Organiz ation Details LastModified Time 03/15/2024 CT, head + brain, w/o contrast completed Information not available 04/28/2024 18:55:58 05/05/2024 CT, sinuses, w/o contrast completed [facility] [address], [place], [address], 05/07/2024 10:04:57 05/05/2024 CT, sinuses, w/o contrast completed [facility] [address], [place], [address], 05/12/2024 13:23:58 Procedure Notes None recorded. Medical Equipment None Reported. Allergies Allergen ID Allergen Name Allergen Category Reaction Reaction Severity Criticality Documentation Date Start Date Code Code System Note Provider Name and Address Organization Details Recorded Time 13321 Benadryl medicatio n other Not available Not available 04/01/202415489 7 RxNorm body burni ng BRY Alatorre - S [place] [employer] 10:46:42 Medications Name Sig Start Date Stop [...] 1 19.1 kg/m2 160.02 cm 98 [degF] 46576.9 8 g 110 mm[Hg] 61 mm[Hg] Not Available [employer] 3 19:29:25 Date Recorded Body height Body mass index (BMI) Body weight Body temperature Provider Name and Address Organization Details Last Updated DateTime 04/01/2024 160.02 cm 22.5 kg/m2 16940.95 g 98 [degF] Avis Brower RN [facility] [employer] 04/01/2024 12:15:45 Date Recorded Body height Body mass index (BMI) Body weight Body temperature Provider Name and Address Organization Details Last Updated DateTime 04/15/2024 160.02 cm 22.1 kg/m2 02948.05 g 98 [degF] Avis Brower RN [facility] [employer] 04/15/2024 15:28:04 Date Recorded Body height Body mass index (BMI) Body weight Body temperature Provider Name and Address Organization Details Last Updated DateTime 09/10/2024 160.02 cm 22 kg/m2 96809.89 g 98 [degF] 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 Occasional [id number] Information not available 04/01/2024 When Did You Quit Smoking? 1-5yearssintea valdez Information not available 04/01/2024 Sex: Unknown Functional Status None recorded. Mental Status None recorded. Family History Nothing Reported Notes:MATERAL GRANDMOTHER LINDSEY D SOMETHING REMOVED FROM NOSE Medical History Condition Response MRSA N ALLERGIES/HAYFEVER N BACK INJECTIONS N LUNG DISEASE/DISORDER N ESRD N HISTORY OF DRUG ABUSE N INSOMNIA N COPD N RADIATION / CHEMOTHERAPY N HIGH CHOLESTEROL / HYPERLIPIDEMIA N HYPERTHYROIDISM N PVD N BLOOD DISEASES N EAR OR HEARING PROBLEMS N HYPOTHYROIDISM N SHINGLES N DEPRESSION (INCLUDING POST ) N BACK / NECK PROBLEMS N HAVE YOU BEEN HOSPITALIZED OR SEEN IN [facility] IN THE PAST YEAR ? N [...] SNOMED-CT Code Diagnosis ICD10 Code Diagnosis Note [id number] [facility] ic_Gateway _[place]HENA_M IGRATION_ DEFAULT_1 _1 , 04/07/2021 00:00:00 04/07/2021 15:03:25 [id number] Mason Mckeon MD [facility] [place] [address] [place] [address] 04/01/2024 12:05:50 04/01/2024 12:53:51 Chronic left maxillary sinusitis 1457433969 2909920 J32.0 Hypertroph y of tonsils 84079142 J35.1 SHE WILL DISCUSS TONSILLECT ANTHONY AT HER SURGICAL CONSULTATI ON WITH DR. MCKEON. [id number] Mason Mckeon MD [facility] [place] [address] [place] [address] 04/15/2024 15:15:38 04/17/2024 14:53:21 Chronic left maxillary sinusitis 9899649987 7148879 J32.0 Chronic tonsillitis 9097 9004 J35.01 [id number] Mason Mckeon MD [facility] [place] [address] [place] [address] 09/10/2024 14:42:06 09/11/2024 13:21:50 Chronic maxillary sinusitis 65642409 J32.0 Deviated nasal septum 12 5962445 J34.2 [id number] Mason Mckeon MD [facility] [place] [address] [place] [address] 10/21/2024 12:32:40 10/21/2024 12:58:18 Chronic left maxillary sinusitis 7062000674 7527695 J32.0 Postoperative visit 1836 73673 Z48.89 10/09/2024 postoperat ranjeet from a septoplast [...] Branham Member ID Guarantor Name 04/01/2024 1 [facility] [id number] Geovanny Dominique [id number] Cale Savageon 04/15/2024 1 [facility] [id number] Geovanny Dominique [id number] Cale Savageon 09/10/2024 1 [facility] (MEDICAID HMO) [id number] 0003 Cale Ortiz Emerson [id number] Cale Savageon 10/21/2024 1 [facility] (MEDICAID HMO) [id number] Cale Ortiz Emerson [id number] Cale Dominique Notes Date Note Type Note Provider Name and Address Organization Details Recorded Time 04/01/2024 text/html this patient presents with no significant past medical history. She reports sinus congestion pressure and left otalgia. She reports her sinus congestion was onset approximately 1 year ago. She does report malodorous mucus. She had a CT of her sinuses completed at [facility] 2 weeks ago revealing a complete left [...] SORAIDA Zhou [address], [address], [place], [address], [employer] 04/01/2024 12:53:22 04/15/2024 text/html this patient had a CT scan demonstrated opacified left maxillary sinus possibly consistent with fungal sinusitis. Antibiotics have been ineffective and she has foul drainage and a foul smell routinely. In addition she has cryptic tonsils with tonsil stones. Mason Mckeon MD [address], [place], [address], [employer] 04/15/2024 15:41:37 09/10/2024 text/html This patient is scheduled for left antrostomy for opacified left maxillary sinus on CT. However she complains of right-sided congestion as well which is worsening. On CT there was right septal deviation. She is also interested in having the right side opens the same time to avoid this in the future Mason Mckeon MD [address] [facility], [facility] [address], [place], [address], [employer] [facility] [employer] [facility] 09/10/2024 14:59:05 10/21/2024 text/html This patient presents [...] been doing this postoperatively. SORAIDA Zhou [address] [facility], [facility] [address], [place], [address], [employer] [facility] 10/21/2024 12:57:51 OBGyn Episode No OBEpisode recorded.
--- OUTSIDE RECORDS SUMMARY | 2024-11-13 01:39 | XMS_ITS | Encounter Summary ---
Author Organization [facility] Address [address] [place] [address] Care Team Providers Care Manager Adult Name Role Phone Mary Mariscal MD Primary Care Provider Encounter Details Date Type Department Care Team (Late st Contact Info) Description 12/25/2019 Lab Requisition [facility] [address] [place] [address] Jasiel Jarvis MD Social History Tobacco Use [...] Not detected, Invalid 12/25/2019 9:19 PM CDT [facility] MICROBIOLOG[facility] Microbiology SPECIMEN FROM NASOPHARYNGEAL STRUCTURE / Unknown Collection / Unknown 12/24/2019 1:00 PM CDT 12/25/2019 9:38 AM CDT Narrative [facility]CRO[facility]OLOG[facility] - 12/25/2019 9:19 PM CDT This Real Time RT-PCR assay was developed and its performance characteristics determined by [facility]. This test has been [...] LAB - MICROBIOLOGY ORDERABL ES Final Result [facility] [address] [place], [place] [address], [facility] [phone] documented in this encounter Visit Diagnoses Not on filedocumented in this encounter Additional Health Concerns Infection Onset Date Last Indicated Resolved Time COVID-19 Under Investigation 12/24/2019 12/24/2019 12/25/2019 9:19 PM CDT documented as of this encounter Care Teams Manager Adult Relationship Specialty Start Date End Date Mary Mariscal MD [address] [place] [address] PCP - General 01/11/20 documented as of this encounter
--- NOTE | 2024-11-13 06:27 | WPDHPUPDATE1 ---
History and Physical Update Update Date/Time: 11/13/24 06:27 History and Physical has been reviewed, including an updated exam of the patient. There are NO changes in the patient's condition. Risks, benefits, and alternatives have been discussed and questions answered. Patient agrees to proceed with procedure.
[2024-11-13 08:13] LABS: BEDSIDEPREGUCG Negative (Negative)
[2024-11-13] MEDS: LACTATED RINGERS 1,000 ML 30 ML IV CONT (08:30)
--- NOTE | 2024-11-13 08:30 | WPDANESEPPF ---
Anes - Initial Pre Proc Eval Procedure: Operation Date: 11/13/24 09:30 Proposed Procedures p Hysteroscopy Dilation and Curettage with Cassandra Endometrial Ablation, - Thoe Diaz MD s Bilateral Laparoscopic Salpingectomy - Theo Diaz MD Date/Time: 11/13/24 08:30 Surgeon: Theo Diaz MD Pre Op Diagnosis: desires sterilization, irregular bleeding, pelvic Patient Data Age: 29 Gender: F Height: 1.6 m Weight: 56.3 kg Last Vital Signs Temp 36.7 C 11/13/24 07:50 Pulse 62 11/13/24 07:50 Resp 16 11/13/24 07:50 BP 107/70 11/13/24 07:50 Pulse Ox 100 11/13/24 07:50 O2 Del Method Room Air 11/13/24 07:50 Allergies Allergy/AdvReac Type Severity Reaction Status Date / Time diphenhydramine AdvReac Intermediate Other Verified 11/13/24 08:09 Home Medications ?Medication ?Instructions ?Recorded ?Confirmed ?Type amoxicillin 875 mg-potassium 1 tablet PO Q12H 11/10/24 11/10/24 History clavulanate 125 mg tablet hydrocodone 5 mg-acetaminophen 325 1 tablet PO Q4H PRN pain #20 tabs 11/13/24 Rx mg tablet Laboratory Tests 11/13/24 08:11 POC Urine HCG, Qual Negative (Negative) Patient hx anesthesia problems: none Family hx anesthesia problems: none Results Review: All pre-operative results and documents have been reviewed as part of the pre-operative evaluation. FORMERLY [facility], [facility] Past Medical History Medical History (Updated 11/12/24 @ 16:18 by Marquis Sampson DO) Anxiety Anemia 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 Encounter for screening examination for sexually transmitted disease Encounter for biopsy 2011 soft tissue of back--benign Encounter for IUD removal (04/07/21) Encounter for IUD insertion (07/15/20) Seizure hypertension Manic depression Surgical History Surgical History No history of previous surgery Family History Family History Mother Malignant tumor of cervix Other Malignant tumor of cervix maternal aunt Social History Social History Smoking status: Former smoker Tobacco type: e-cigarettes/vaping Additional smoking assessment comments: Quit 2 years ago. 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 Gender identity (if verbalized by the patient): Female Sexual Orientation (if Verbalized by the Patient): Bisexual Spiritual care concerns: No Anes - Eval Final PreProcedure Day of Procedure 11/13/24 08:30 Patient weight: normal Heart: regular rate and rhythm Lungs: clear to auscultation Airway: Mallampati scale class II Neurological: alert and oriented Last oral intake: >/= 8 hours ASA classification: II Emergent: no Anesthetic plan: proceed Anesthesia type and monitoring: general ETT and standard monitoring Results Review: All pre-operative results and documents have been reviewed as part of the pre-operative evaluation. Informed Consent: The patient's anesthetic plan and its attendant risks and benefits were discussed with the patient/family/POA. Questions were solicited and answers provided to the satisfaction of the patient/family/POA.
[2024-11-13] MEDS: SCOPOLAMINE 1 MG PATCH 1 PATCH TRANSDERM (09:30)
[2024-11-13] MEDS: ACETAMINOPHEN 500 MG TABLET 1000 MG PO (09:30)
[2024-11-13] MEDS: KETOROLAC 15 MG/ML VIAL (*BKC) IV PUSH (09:30)
[2024-11-13] MEDS: LIDOCAINE 1% LOCAL INJ 20 ML VIAL INFILTRATE (10:01)
--- NOTE | 2024-11-13 10:28 | P.OP_ITS ---
Procedure Note - Detailed Date of Procedure 11/13/24 Pre-op Diagnosis desires sterilization, irregular bleeding, pelvic Post-op Diagnosis Same Procedure Performed Laparoscopic bilateral salpingectomy/hysteroscopy/dilatation curettage/Cassandra ablation Surgeon Theo Diaz MD Anesthesia General Indications 29-year-old multiparous patient who desires permanent sterilization with excessive heavy bleeding Findings Normal-appearing tubes ovaries uterus. Description of Procedure Patient was prepped and draped in the normal sterile fashion placed in the dorsal lithotomy position. Under excellent general endotracheal anesthesia weighted speculum placed in posterior fornix of vagina. Anterior lip of the cervix was grasped with a single-tooth tenaculum. A Concepcion's cannula was inserted the cervix and attached to the single-tooth to be used later for uterine manipulation. The bladder was emptied of clear urine the weighted speculum was removed. An infraumbilical incision made the Veress needle passed in the abdomen. Abdomen filled with CO2 gas [id number]. The 5mm trocar inserted with the Optiview and no injury seen. Patient placed in Trendelenburg and a suprapubic incision made. The 5mm trocar advanced under direct visualization assuring no injury. A left lower quadrant incision made the 8mm trocar advanced a visualization assuring no injury. The left fallopian tube was grasped and using the LigaSure this was serially clamped burned cut and from its ovarian attachment. At the entrance of the uterus this was then clamped burned and cut this was passed off the table. In similar fashion the right fallopian tube was grasped and sharply dissecting using the LigaSure serially clamping burning and cutting and bringing this free of the ovarian attachment. At the uterine origin a thompson it was clamped, burned, cut this was then passed through the left lower quadrant incision. No other abnormalities were seen in photo documentation undertaken. Lower site removed. The gas removed from the abdomen. The upper site removed the incisions closed with 4-0 Monocryl and glue. Attention was turned to the hysteroscopic portion. The uterus the uterus sounded to 8cm. Serial dilatation with fragmented dilators performed followed by passage of the 5mm visualizing hysteroscope using normal saline as visualizing medium normal-appearing endometrium was present and photo documen tation was undertaken including each fallopian tube os. The uterus was scraped over the entire 360? until good grating sound was heard. The Cassandra instrument was then placed in the uterus and burned for 120seconds this was then removed. The hysteroscope was reinserted and an excellent burn was seen in photo documentation undertaken. The instruments withdrawn. Blood loss was estimated at5cc for the entire procedure. All sponge, needle, instrument counts were correct. There were no immediate complications Estimated Blood Loss 25 Drains No Packing No Pathology Yes Complications No immediate complications Condition Stable Disposition PACU
[2024-11-13] MEDS: ONDANSETRON INJ 4 MG/2 ML VIAL IV PUSH (10:38)
[2024-11-13] MEDS: fentaNYL CITRATE INJ (*CRX) 100 MCG/2 ML VIAL 25 MCG IV PUSH ×4 (10:53→11:01)
[2024-11-13] MEDS: HYDROmorphone HCL INJ (*CRX) 1 MG/ML SYR 0.5 MG IV PUSH ×2 (11:09→11:18)
[2024-11-13] MEDS: oxyCODONE HCL (*CRX) 5 MG TAB IR PO (11:43)
== END 2024-11-13 13:05 | disposition home or self-care (01) ==
PROVIDERS: PCP Physician Assistant; Visit Provider Obstetrics & Gynecology
PROC: 0U5B8ZZ Destruction of Endometrium, Via Natural or Artificial Opening Endoscopic (ICD-10-PCS; CPT 58563; principal; 2024-11-13 09:30)
PROC: (CPT 49320; 2024-11-13 09:30)
DX: Z30.2 Encounter for sterilization (principal); N92.6 Irregular menstruation, unspecified; R10.2 Pelvic and perineal pain; Z87.891 Personal history of nicotine dependence
CPT/HCPCS: 58661; 58563; 88302; 88305; A9270; J1100; J1171; J1885; J2003; J2250; J2405; J2704; J3010; J7120

== ENCOUNTER 2025-02-21 12:32 | Emergency (ER) | payer OTHER, SELFPAY ==
[2025-02-21] VITALS (29 sets, daily range): BP systolic 101–134; BP diastolic 57–96; PULSE 73–132; RESP 14–25; TEMP 36.8–37.3; O2SAT 92–100
--- NOTE | ~2025-02-21 | CT_ITS ---
EXAMINATION: CT brain wo con DATE: 02/21/2025 13:31 INDICATION: Seizures and posterior left-sided headaches TECHNIQUE: Computed tomography (CT) of the head was performed without intravenous contrast. Sagittal and coronal reconstructions were performed. The mA was adjusted according to patient size. Iterative reconstruction technique was employed. The dose-length product was 605.33 mGy-cm. COMPARISON: head CT dated 12/02/21 FINDINGS: No acute intracranial hemorrhage, acute infarction or abnormal extra axial fluid collection. Ventricl es are normal and symmetric. No mass/mass effect. Complete opacification of the left maxillary sinus and anterior most left ethmoid air cells with thickened sclerotic moore to the maxillary sinus consis tent with chronic sinusitis. The orbits are normal. The right mastoid is hypopneumatized. IMPRESSION: 1. Normal brain. No acute intracranial process. 2. Chronic left maxillary sinusitis. Reviewed, dictated and finalized at location A.
--- NOTE | 2025-02-21 12:40 | ED_ITS ---
HPI - Seizure General Chief Complaint: Psychiatric Symptoms Stated Complaint: 3 seizures today Time Seen by Provider: 02/21/25 12:40 Source: patient Mode of arrival: ambulatory Limitations: no limitations History of Present Illness HPI Narrative: patient is a 29-year-old female with 3 seizures in the past hour with a history of psychiatric pseudoseizures. She does not have significant stressors at this time to cause significant anxiety. She does have some mild anxiety on examination and discussion. She does not lose consciousness during the events and did not fall or hurt herself with seizures today. Some chest tightness and a lump in her throat with some tingling of the extremities. This appears to be anxiety driven symptoms. patient is not on medication for seizures. Patient was drinking moderate alcohol consumption last night. MD complaint: other ( Pseudoseizures with breakthrough seizures) Onset (ago): day(s) ( One) Description of Episode: tonic-clonic movement ( awake during the entire event) Duration of episode: 2 -: minutes(s) Witnessed: Yes - by Bystander Trauma: No Seizure History: Yes (Related to stress and anxiety. 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, either self-employed or otherwise?: No Related Data Home Medications ?Medication ?Instructions ?Recorded ?Confirmed ?Last Taken ?Type amoxicillin 875 mg-potassium 1 tablet PO Q12H 11/10/24 11/10/24 Unknown History clavulanate 125 mg tablet Allergies Allergy/AdvReac Type Severity Reaction Status Date / Time diphenhydramine AdvReac Intermediate Other Verified 02/21/25 12:41 Review of Systems 2 Review of Systems: All systems reviewed & are unremarkable except as noted in HPI and below Constitutional: Constitutional: Reports no additional constitutional complaints Eyes: Eyes: Reports no additional eye complaints ENT: Reports system reviewed and no additional complaints, except as documented Cardiovascular: Cardiovascular: Reports no additional cardiovascular complaints Respiratory: Respiratory: Reports no additional respiratory complaints Gastrointestinal: Gastrointestinal: Reports no additional gastrointestinal complaints Genitourinary: Genitourinary: Reports no additional female genitourinary complaints Musculoskeletal: Musculoskeletal: Reports no additional musculoskeletal complaints Integumentary/Breasts: Skin/Breast: Reports system reviewed and no additional complaints, except as docu Neurologic: Reports system reviewed and no additional complaints, except as documented Psychiatric: Psychiatric: Reports no additional psychiatric complaints Endocrine: Endocrine: Reports no additional endocrine complaints Hematologic/Lymphatic: Hematologic/Lymphatic: Reports no additional hematologic/lymphatic complaints Allergic/Immunologic: Allergic/Immunologic: Reports no additional allergic/immunologic complaints PMFSH Past Medical History Medical History Anxiety Anemia 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 Encounter for screening examination for sexually transmitted disease Encounter for biopsy 2010 soft tissue of back--benign Encounter for IUD removal (04/07/21) Encounter for IUD insertion (07/15/20) Seizure hypertension Manic depression Surgical History Surgical History No history of previous surgery Family History Family History Mother Malignant tumor of cervix Other Malignant tumor of cervix maternal aunt Social History Social History Smoking status: Former smoker Tobacco type: e-cigarettes/vaping Additional smoking assessment comments: Quit 2 years ago. 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 Gender identity (if verbalized by the patient): Female Sexual Orientation (if Verbalized by the Patient): Bisexual Spiritual care concerns: No Exam 2 Const: General: healthy appearing Nutritional Appearance: well nourished Orientation/consciousness: patient oriented x3 Limitations: no limitations HENMT: Head: normal to inspection Ears: external ears normal F kristal/Nose/Sinus: Normal external nose present Eyes: Conjunctivae: conjunctivae normal Pupils: Equal, round and reactive pupils present EOM: EOMs intact bilaterally Neck: Neck: normal visual inspection Chest: Chest palpation & inspection: normal inspection of the chest Resp: Effort & Inspection: normal respiratory effort and not labored A uscultation: clear to auscultation bilaterally and no crackles Cardio: Rate: regular rate Rhythm: regular rhythm Heart sounds: no murmurs GI: Inspection: non-distended GI Palp: Yes Soft to palpation and No Tenderness to palpation present (GI) Auscultation: normal bowel sounds : General: Yes bladder normal to palpation Back/Spine/Pelvis: Back: no CVA tenderness Skin: General skin exam: normal color Rashes: no rashes Wounds: no wounds Neuro: General: patient oriented x3, moves all extremities, no meningeal signs, no focal motor deficits and CN's II-XI intact bilaterally Cranial nerves: Yes Nystagmus not present Speech: normal speech Gait exam (Neuro): Normal gait present Other: NIH is 0, GCS is 15, witnessed pseudo-seizure and patient was awake during entire event Extrem: General: normal to inspection, no clubbing, cyanosis or edema and no pedal edema Psych: Appearance: grossly normal Mental Status: mental status grossly normal Affect: Anxious affect present Attitude: cooperative Course Vital Signs Vital signs: Vital Signs Temperature 37.3 C 02/21/25 12:32 Pulse Rate 106 H 02/21/25 12:32 Respiratory Rate 20 02/21/25 12:32 Blood Pressure 134/96 H 02/21/25 12:32 Pulse Oximetry 100 02/21/25 12:32 Oxygen Delivery Room Air 02/21/25 12:32 Temperature 37.3 C 02/21/25 12:32 Pulse Rate 92 02/21/25 14:00 Respiratory Rate 16 02/21/25 13:02 Blood Pressure 111/94 H 02/21/25 13:02 Pulse Oximetry 100 02/21/25 13:02 Oxygen Delivery Room Air 02/21/25 12:32 MDM - Seizure MDM Narrative Medical decision making narrative: patient is a 29-year-old female with history of pseudoseizures here with recurrent seizure activity today. We will do workup at this time and give Xanax for the seizure activity. Lab Data Attestation: I reviewed the patient's lab results. 02/21/25 13:08 02/21/25 13:08 Labs: Lab Results 02/21/25 02/21/25 02/21/25 Range/Units 12:55 13:08 13:20 WBC 10.2 (4.8-10.8) K/mm3 RBC 4.63 (4.20-5.40) M/mm3 Hgb 13.9 (12.0-15.0) g/dL Hct 42.6 (35.0-49.0) % MCV 92.0 (78.0-102.0) fL MCH 30.0 (27.0-31.0) pg MCHC 32.6 (32-36) g/dL RDW 11.9 (11.6-14.4) % Plt Count 247 (150-420) K/mm3 MPV 11.4 (9.2-11.8) fl Immature Gran % (Auto) 0.2 H (0.0-0.0) % Neut % (Auto) 58.2 (50.0-70.0) % Lymph % (Auto) 31.4 (18.0-42.0) % Hamilton % (Auto) 9.2 (2.0-11.0) % Eos % (Auto) 0.5 L (1.0-6.0) % Baso % (Auto) 0.5 (0.0-1.0) % Lymph # (Auto) 3.21 (1.10-4.50) K/mm3 Hamilton # (Auto) 0.94 H (0.10-0.90) K/mm3 Eos # (Auto) 0.05 (0.02-0.50) K/mm3 Baso # (Auto) 0.05 (0.00-0.10) K/mm3 Abs Immat Gran (auto) 0.02 H (0.00-0.00) K/mm3 Absolute Neuts (auto) 5.96 (1.70-7.20) K/mm3 Absolute Nucleated RBC 0.00 (0.00-0.00) K/mm3 Nucleated RBC % 0.0 (0-0.0) % % Immature Plt Fraction 4.8 (1.0-7.0) % Sodium 141 (137-145) mmol/L Potassium 3.8 (3.4-5.0) mmol/L Chloride 111 H (98-107) mmol/L Carbon Dioxide 14 L (22-30) mmol/L Anion Gap 16 H (4-12) mmol/L BUN 10 (7-17) mg/dL Creatinine 0.70 (0.7-1.0) mg/dL Estim Creat Clear Calc 86 ml/min Estimated GFR > 60 (59 - ) Glucose 91 (65-110) mg/dL Calculated Osmolality 291 (285-295) mOsm/kg Calcium 9.3 (8.4-10.2) mg/dL Total Bilirubin 0.8 (0.2-1.3) mg/dL AST 30 (14-36) U/L ALT 19 (6-35) U/L Alkaline Phosphatase 81 (38-126) U/L Total Creatine Kinase 275 H (30-135) U/L Troponin I < 0.012 (0.000-0.034) ng/mL Total Protein 8.5 H (6.3-8.2) g/dL Albumin 4.8 (3.5-5.1) g/dL Urine Color Light yellow (Yellow) Urine Appearance Clear (Clear) Urine pH 7.0 (5.0-8.0) Ur Specific Moran 1.015 (1.010-1.020) Urine Protein Negative (Negative) Urine Glucose (UA) Negative (Negative) Urine Ketones 2+ H (Negative) Ur Blood (Man) Negative (Negative) Urine Nitrate Negative (Negative) Urine Bilirubin Negative (Negative) Urine Urobilinogen 1.0 (0.2-1.0) mg/dL Leukocyte Esterase Rfl Negative (Negative) HERMAN/UL Urine Test Negative Urine Opiates Screen Negative (Negative) Urine Methadone Screen Negative (Negative) Ur Barbiturates Screen Negative (Negative) Ur Phencyclidine Scrn Negative (Negative) Ur Amphetamine Screen Negative (Negative) U Benzodiazepines Scrn Negative (Negative) Urine Cocaine Screen Negative (Negative) U Cannabinoids Screen Negative (Negative) Ethyl Alcohol < 10 Cancelled (<10) mg/dL Imaging Data Attestation: I personally reviewed and interpreted this imaging study as follows: ECG Data EKG #1: Attestation: I personally reviewed and interpreted this ECG as follows: ECG completion date: 02/21/25 ECG completion time: 13:11 EKG Interpretation: tachycardia, sinus rhythm, no ectopy, no ST changes, normal QRS, normal QT and NL axis Discharge Plan Discharge Clinical Impression: Seizure disorder, Acute dehydration Rhabdomyolysis Qualifiers: Rhabdomyolysis type: non-traumatic Qualified Code(s): M62.82 - Rhabdomyolysis Patient Disposition: Home Condition: Stable Instructions: Nonepileptic Seizures (DC) Additional Instructions: please drink plenty of water over the next 24 hours to rehydrate your system. Follow-up with your primary doctor in the next week and have them recheck your labs to include chemistry panel and CPK level. Patient Language: Lithuanian Prescriptions: No Action amoxicillin-pot clavulanate 875-125 mg tablet 1 tablet PO Q12H hydrocodone-acetaminophen 5-325 mg tablet 1 tablet PO Q4H PRN (Reason: pain) Qty: 20 0RF Follow-up/Referrals: Kleber,GODFREY Wise [Primary Care Provider] - Time of Disposition: 15:34
--- OUTSIDE RECORDS SUMMARY | 2025-02-21 12:42 | XMS_ITS | Clinical Summary ---
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 Gender Identity Not on file Sexual Orientation [...] 10:39 PM CDT Height 160 cm (5' 3) 03/14/2024 10:39 PM CDT Body Mass Index 22.14 03/14/2024 10:39 PM CDT Plan of Treatment Health Maintenance Due Date Last Done Comments Cervical Cancer Screening 1997 Depression Screening 1997 Hepatitis C Screening 1997 Varicella Vaccines (1 of 2 - 13+ 2-dose series) 2010 Regular Well Visit/Exam 18-64 2015 Covid-19 Vaccine (2023- season) 2024 06/04/2021, 05/14/2021 Influenza Vaccine (#1) 2025 DTaP/Tdap/Td Vaccine (10 - Td or Tdap) 10/01/2033 10/02/2023, 05/14/2020, 04/18/2018, Additional history exists Hepatitis B Screening Completed 01/25/1998 , 1997, 1997, Additional history exists HPV Vaccines Completed 02/22/2015, 01/2014, 08/14/2012 Pneumococcal vaccine <65 Aged Out No longer eligible based on patient's age to complete this topic Insurance [facility] CHO[facility] PLUS Care Teams Belt Back Operator Relationship Specialty Start Date End Date Elijah Amras MD [address] [facility] [address] [place] [id number] PCP - General Internal Medicine 03/11/24 Unknown, Notinfile 03/11/24
--- OUTSIDE RECORDS SUMMARY | 2025-02-21 12:42 | XMS_ITS | Encounter Summary ---
Author Organization [facility] Address [address] [place] [address] Care Team Providers Care Transfer Table Operator Name Role Phone Elijah Armas MD Primary Care Provider [phone] Encounter Details Date Type Department Care Team (Late st Contact Info) Description 02/17/2025 ADTELLIGENCE Message Enc [facility] - [place] [address] [address] [place] [address] [facility] Yearly Physical Social History Tobacco Use Types Packs/Day Years Used Date Smoking Tobacco: Former Cigarettes 0.5 1 0 07/15/2016 - 07/15/2017 Passive Smoke Exposure: Never Smokeless Tobacco: Never Comments:Counseled by Dr. Nishi west. PHQ-2 Answer Date Recorded Patient Health Questionnaire-2 Score 2 03/10/2024 Comments Unknown Sex and Gender Information Value Date Recorded Sex Assigned at Not on file Legal Sex Female 2:19 PM CDT Gender Identity Not on file Sexual Orientation Not on file documented as of this encounter Plan of Treatment Not on file documented as of this encounter Visit Diagnoses Not on filedocumented in this encounter Additional Health Concerns Assessment Noted Time PHQ-9 Depression Total Score: 11 024 2:44 PM CDT documented as of this encounter Care Teams Transfer Table Operator Relationship Specialty Start Date End Date Elijah Armas MD [address] [facility] [address] [place] [address] PCP - General INTERNAL MEDICINE 03/09/24 documented as of this encounter
--- OUTSIDE RECORDS SUMMARY | 2025-02-21 12:42 | XMS_ITS | Encounter Summary ---
Author Organization [facility] Address [address] [place] [address] Care Team Providers Care Automatic Presser Name Role Phone Mary Mariscal MD Primary Care Provider [phone] Encounter Details Date Type Department Care Team (Late st Contact Info) Description 12/25/2019 Lab Requisition [facility] [address] [place] [address] Jasiel Jarvis MD Social History Tobacco Use [...] Not detected, Invalid 12/25/2019 9:19 PM CDT [facility] MICROBIOLOGY Microbiology SPECIMEN FROM NASOPHARYNGEAL STRUCTURE / Unknown Collection / Unknown 12/24/2019 1:00 PM CDT 12/25/2019 9:38 AM CDT Narrative [facility] - 12/25/2019 9:19 PM CDT This Real Time RT-PCR assay was developed and its performance characteristics determined by [facility]. This test has been [...] LAB - MICROBIOLOGY ORDERABL ES Final Result [facility] [address] [place], [place] [address], [facility] [phone] documented in this encounter Visit Diagnoses Not on filedocumented in this encounter Additional Health Concerns Infection Onset Date Last Indicated Resolved Time COVID-19 Under Investigation 12/24/2019 12/24/2019 12/25/2019 9:19 PM CDT documented as of this encounter Care Teams Automatic Presser Relationship Specialty Start Date End Date Mary Mariscal MD [address] [place] [address] PCP - General 01/11/20 documented as of this encounter
--- OUTSIDE RECORDS SUMMARY | 2025-02-21 12:42 | XMS_ITS | Clinical Summary ---
Author Organization [facility] Address [address] [place] [address] Care Team Providers Care Title Manager Name Role Phone Elijah Armas MD Primary Care Provider [phone] Medications levonorgestrel (KYLEENA) 19.5 MG IUD 1 each (19.5 mg total) by Intrauterine route once. Active lamoTRIgine (LAMICTAL) 25 MG tabletIndicatio ns:Bipolar disorder, current episode manic without psychotic features, severe ([facility]),Seizur e ([facility]) Take 1 tablet (25 mg total) by mouth daily. 30 tablet 1 4 Active fluticasone propionate (FLONASE) 50 MCG/ACT nasal sprayIndication s:Chronic maxillary sinusitis 2 sprays by Nasal route daily. 16 g 5 4 Active Active Problems No known active problems Encounters Date Type Department Care Team Description 02/17/2025 Telephone [place] [address] [facility] [address] [place], [place] [id number] Elijah Armas MD Appointment Request 02/17/2025 [facility] [place] [address] [facility] [address] [place] [address] [facility] Provider Yearly Physical from Last 3 Months Family History Medical History Relation Comments Muscular [...] P M CDT Height 160 cm (5' 3) 03/10/2024 2:10 PM CDT Body Mass Index 21.89 03/10/2024 2:10 PM CDT Plan of Treatment Health Maintenance Due Date Last Done Comments Cervical Cancer Screening Pap Smear (Age 21 to 29) Every 3 Years 1997 Cervical Cancer Screening 1997 Annual Physical 2000 Hepatitis C 2015 COVID-19 Vaccine ( season) 2024 06/04/2021, 05/14/2021 PHQ-2 (Physician [place]) 07/15/2024 03/10/2024 DTaP, Tdap and Td Vaccines [...] patient's age to complete this topic Insurance [id number] Care Teams Title Manager Relationship Specialty Start Date End Date Elijah Armas MD [address] [address] PCP - General INTERNAL MEDICINE 03/09/24
--- OUTSIDE RECORDS SUMMARY | 2025-02-21 12:42 | XMS_ITS | Clinical Summary ---
Author Organization [facility] Address [address] [facility] [place] [address] Care Team Providers Care Senior Cytogenetic Technologist Name Role Phone Mary Mariscal MD Primary Care Provider [phone] Source Comments [facility],non-[facility] Affiliates and Associated Physician Practices is amultiple site organization consisting of ambulatory clinics and hospital sitesin [place], [place], [place] and [place]. This disclosure is being madepursuant to the Care Everywhere program and may not contain all information available regarding this patient. Last updated 18.[facility] Allergies No known active allergies Medications * Be aware that medications may not be up to date on this document. Alwaysverify current medications with the patient. lamoTRIgine (LAMICTAL) 25 MG tabletIndicati ons:Atonic Seizures Take 50 mg by mouth 2 times daily Reasons: Seizures with Sudden Loss of Muscle Tone Active Dtqxfmje-Zqx-R e-FA ( VITAMIN WITH IRON) tablet Take [...] Manic Depression - non medicated Psychiatry through [place] Supervision of high-risk of young prim igravida [...] A M CDT Height 160 cm (5' 3) 12/08/2016 2:43 PM CDT Body Mass Index 25.08 12/08/2016 2:43 PM CDT Plan of Treatment Health Maintenance Due Date Last Done Comments HIV SCREENING 2012 HEPATITIS C SCREENING 07/01/2015 DTAP/TDAP/TD VACCINES (1 - Tdap) 2016 HEPATITIS B VACCINE (1 of 3 - 19+ 3-dose series) 2016 PAP SMEAR 2018 COVID-19 VACCINE (1 - 2023-2 5 season) 2024 HPV VACCINE (1 - 3-dose SCDM series) 2024 INFLUENZA VACCINE (#1) 2025 ZOSTER VACCINE (1 of 2) 2047 [...] patient's age to complete this topic Insurance SELF PAY NO INSURANCE Member Subscriber Plan / Payer (Ef fective for All Dates) Name:Cale Cowart Member ID:Not on file Relation to Subscriber:Self Name:CALE COWART Subscriber ID:Not on file Payer ID:Not on file Group ID:Not on file Type:Self Pay Address: [facility] SELF PAY NO INSURANCE Member Subscriber Plan / Payer (Ef fective for All Dates) Name:Cale Cowart Member ID:Not on file Relation to Subscriber:Not on file Name:CALE COWART Subscriber ID:Not on file Address: [address] [place] [address] Payer ID:Not on file Group ID:Not on file Type:Self Pay Address: [facility] SELF PAY NO INSURANCE Member Subscriber Plan / Payer (Ef fective for All Dates) Name:Cale Cowart Member ID:Not on file Relation to Subscriber:Not on file Name:CALE COWART Subscriber ID:Not on file Address: [address] [place] [address] Payer ID:Not on file Group ID:Not on file Type:Self Pay Address: [facility] Member Subscriber Plan / Payer (Ef fective 2023-) Name:Cale Cowart Relation to Subscriber:Spouse Name:KATILINLARYMALICK Khan Date of :1999 (Home) Address: [address] [place] [address] Payer ID:[id number] ([facility]) Type:HMO Address: [address] Member Subscriber Plan / Payer (Ef fective for All Dates) Name:Cale Cowart Member ID:Not on file Relation to Subscriber:Not on file Name:SCHON,DIGITAL EXPERIENCE MANAGER Subscriber ID:Not on file Address: [address] [place] [id number] Payer ID:Not on file Group ID:Not on file Type:Self Pay Address: [facility] Care Teams Senior Cytogenetic Technologist Relationship Specialty Start Date End Date Mary Mariscal MD [address] [place] [address] [place] [address] PCP - General 01/11/20
--- NOTE | 2025-02-21 12:49 | ECG_ITS ---
Test Date: 2025-02-21 13:07:44 Measurements Intervals [place] Rate: 107 P: 62 NM: 125 QRS: 79 QRSD: 78 T: 64 QT: 345 QTc: 461 Interpretive Statements SINUS TACHYCARDIA MINIMAL Q WAVES- INF/LAT LEADS BASELINE ARTIFACT- AVL ABNORMAL ECG No previous ECG available for comparison Electronically Signed On 02-21-2025 17:41:06 CDT by Franck White D.O.
--- OUTSIDE RECORDS SUMMARY | 2025-02-21 13:13 | XMS_ITS | Clinical Summary ---
Author Organization [facility] Address [address] [place] [address] Care Team Providers Care Floor Attendant Name Role Phone Elijah Armas MD Primary Care Provider [phone] Medications levonorgestrel (KYLEENA) 19.5 MG IUD 1 each (19.5 mg total) by Intrauterine route once. Active lamoTRIgine (LAMICTAL) 25 MG tabletIndicatio ns:Bipolar disorder, current episode manic without psychotic features, severe ([facility]),Seizur e ([facility]) Take 1 tablet (25 mg total) by mouth daily. 30 tablet 1 4 Active fluticasone propionate (FLONASE) 50 MCG/ACT nasal sprayIndication s:Chronic maxillary sinusitis 2 sprays by Nasal route daily. 16 g 5 4 Active Active Problems No known active problems Encounters Date Type Department Care Team Description 02/17/2025 Telephone [place] [address] [facility] [address] [place], [place] [id number] Elijah Armas MD Appointment Request 02/17/2025 Yesware [facility] [place] [address] [facility] [address] [place] [address] [facility] Provider Yearly Physical from Last 3 Months [...] ( season) 2024 06/04/2021, 05/14/2021 PHQ-2 (Physician Koi) 07/15/2024 03/10/2024 DTaP, Tdap and Td Vaccines [...] patient's age to complete this topic Insurance [id number] Care Teams Floor Attendant Relationship Specialty Start Date End Date Elijah Armas MD [address] [address] PCP - General INTERNAL MEDICINE 03/09/24
--- OUTSIDE RECORDS SUMMARY | 2025-02-21 13:13 | XMS_ITS | Clinical Summary ---
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
--- OUTSIDE RECORDS SUMMARY | 2025-02-21 13:13 | XMS_ITS | Encounter Summary ---
Author Organization [facility] Address [address] [place] [address] Care Team Providers Care Rubble Placer Name Role Phone Elijah Armas MD Primary Care Provider [phone] Encounter Details Date Type Department Care Team (Late st Contact Info) Description 02/17/2025 HelloWallet Message Enc [facility] - [place] [address] [address] [place] [address] [facility] Yearly Physical Social History Tobacco [...] documented as of this encounter Care Teams Rubble Placer Relationship Specialty Start Date End Date Elijah Armas MD [address] [facility] [address] [place] [address] PCP - General INTERNAL MEDICINE 03/09/24 documented as of this encounter
--- OUTSIDE RECORDS SUMMARY | 2025-02-21 13:13 | XMS_ITS | Clinical Summary ---
Author Organization [facility] Address [address] [place] [address] Care Team Providers Care Training Engineer Name Role Phone Mary Mariscal MD Primary Care Provider Source Comments [facility],non[facility] Affiliates and Associated Physician Practices is amultiple site organization consisting of ambulatory clinics and hospital sitesin [place], [place], [place] and [place]. This disclosure is being madepursuant to the Care Everywhere program and may not contain all information available regarding this patient. Last updated 18.[facility] Allergies No known active allergies Medications * Be aware that medications may not be up to date on this document. Alwaysverify current medications with the patient. lamoTRIgine (LAMICTAL) 25 MG tabletIndicati ons:Atonic Seizures Take 50 mg by mouth 2 times daily Reasons: Seizures with Sudden Loss of Muscle Tone Active Rhdqdeoq-Upu-U e-FA ( VITAMIN WITH IRON) tablet Take [...] Manic Depression - non medicated Psychiatry through [place] Supervision of high-risk of young prim igravida [...] Group ID:Not on file Type:Self Pay Address: [facility] SELF PAY NO INSURANCE Member Subscriber Plan / Payer (Ef fective for All Dates) Name:Cale Cowart Member ID:Not on file Relation to Subscriber:Not on file Name:CALE COWART Subscriber ID:Not on file Address: [address] [place] [address] Payer ID:Not on file Group ID:Not on file Type:Self Pay Address: [facility] SELF PAY NO INSURANCE Member Subscriber Plan / Payer (Ef fective for All Dates) Name:Cale Cowart Member ID:Not on file Relation to Subscriber:Not on file Name:CALE COWART Subscriber ID:Not on file Address: [address] [place] [address] Payer ID:Not on file Group ID:Not on file Type:Self Pay Address: [facility] Member Subscriber Plan / Payer (Ef fective 2023-) Name:Cale Cowart Relation to Subscriber:Spouse Name:KAITLINLARYMALICK Khan Date of :1999 (Home) Address: [address] [place] [address] Payer ID:[id number] ([facility]) Type:HMO Address: [address] Member Subscriber Plan / Payer (Ef fective for All Dates) Name:Cale Cowart Member ID:Not on file Relation to Subscriber:Not on file Name:SCHON,WARD ASSISTANT Subscriber ID:Not on file Address: [address] [place] [phone] Payer ID:Not on file Group ID:Not on file Type:Self Pay Address: [facility] Care Teams Training Engineer Relationship Specialty Start Date End Date Mary Mariscal MD [address] [place] [address] [place] [address] PCP - General 01/11/20
--- OUTSIDE RECORDS SUMMARY | 2025-02-21 13:13 | XMS_ITS | Encounter Summary ---
Author Organization [facility] Address [address] [facility] [place] [address] Care Team Providers Care French Instructor Name Role Phone Mary Mariscal MD Primary Care Provider [phone] Encounter Details Date Type Department Care Team (Late st Contact Info) Description 12/25/2019 Lab Requisition [facility] [address] [place] [address] Jasiel Jarvis MD Social History Tobacco Use [...] Not detected, Invalid 12/25/2019 9:[address] [facility] Microbiology SPECIMEN FROM NASOPHARYNGEAL STRUCTURE / Unknown Collection / Unknown 12/24/2019 1:00 PM CDT 12/25/2019 9:38 AM CDT Narrative [facility] - 12/25/2019 9:19 PM CDT This Real Time RT-PCR assay was developed and its performance characteristics determined by [facility]. This test has been [...] LAB - MICROBIOLOGY ORDERABL ES Final Result [facility] [address] [place], [place] [address], [facility] [phone] documented in this encounter Visit Diagnoses Not on filedocumented in this encounter Additional Health Concerns Infection Onset Date Last Indicated Resolved Time COVID-19 Under Investigation 12/24/2019 12/24/2019 12/25/2019 9:19 PM CDT documented as of this encounter Care Teams French Instructor Relationship Specialty Start Date End Date Mary Mariscal MD [address] [place] [address] PCP - General 01/11/20 documented as of this encounter
[2025-02-21] MEDS: ALPRAZolam (*CRX) 0.5 MG TABLET 1 MG PO (13:14)
[2025-02-21 13:18] LABS: Hematocrit 42.6 % (35.0-49.0); Hemoglobin 13.9 g/dL (12.0-15.0); Immature Granulocyte Percent A 0.2 % (0.0-0.0); Immature Platelet Fraction Pct 4.8 % (1.0-7.0); Lymphocytes Absolute Auto 3.21 K/mm3 (1.10-4.50); Mean Corpuscular HGB Conc 32.6 g/dL (32-36); Mean Corpuscular Hemoglobin 30.0 pg (27.0-31.0); Mean Corpuscular Volume 92.0 fL (78.0-102.0); Nucleated Red Blood Cells Absolute Auto 0.00 K/mm3 (0.00-0.00); Nucleated Red Blood Cells Perc 0.0 % (0-0.0); Platelet Count Result 247 K/mm3 (150-420); Red Blood Count 4.63 M/mm3 (4.20-5.40); White Blood Count 10.2 K/mm3 (4.8-10.8)
[2025-02-21 13:32] LABS: Add Urine Microscopic? NO; Appearance Urine Clear (Clear); Glucose Urine UA Negative (Negative); Leukocyte Esterase Ur Negative LEU/UL (Negative); Nitrate Urine Negative (Negative); Specific Grav Ur 1.015 (1.010-1.020)
[2025-02-21 13:35] LABS: Pregnancy On Board Control Positive
[2025-02-21 13:36] LABS: Troponin I < 0.012 ng/mL (0.000-0.034)
[2025-02-21 13:40] LABS: Alanine Aminotransferase 19 U/L (6-35); Albumin Level 4.8 g/dL (3.5-5.1); Alkaline Phosphatase 81 U/L (38-126); Anion Gap 16 mmol/L (4-12); Aspartate Amino Transferase 30 U/L (14-36); Bilirubin,Total 0.8 mg/dL (0.2-1.3); Blood Urea Nitrogen 10 mg/dL (7-17); Calcium 9.3 mg/dL (8.4-10.2); Carbon Dioxide 14 mmol/L (22-30); Chloride 111 mmol/L (98-107); Creatine Kinase 275 U/L (30-135); Estimated CRCL calculation 86 ml/min; Estimated Glomerular Filt Rate > 60; Glucose 91 mg/dL (65-110); Osmolality Calculated 291 mOsm/kg (285-295); Potassium 3.8 mmol/L (3.4-5.0); Sodium 141 mmol/L (137-145); Total Protein 8.5 g/dL (6.3-8.2)
[2025-02-21 13:46] LABS: Cannabinoid Screen Urine Negative (Negative)
[2025-02-21] MEDS: SODIUM CHLORIDE 0.9% IV 1,000 ML 999 ML IV CONT (14:14)
== END 2025-02-21 16:05 | disposition home or self-care (01) ==
PROVIDERS: Emergency Provider Emergency Medicine; PCP Physician Assistant
DX: G40.909 Epilepsy, unspecified, not intractable, without status epilepticus (principal); E86.0 Dehydration; M62.82 Rhabdomyolysis; Z87.891 Personal history of nicotine dependence
CPT/HCPCS: 36415; 70450; 80053; 80307; 81003; 81025; 82077; 82550; 84484; 85025; 85055; 93005; 96360; 99284; A9270; J7030

== ENCOUNTER 2025-05-27 17:10 | Emergency (ER) | payer SELFPAY ==
--- NOTE | ~2025-05-27 | XR_ITS ---
XR chest 2V HOSTORY: chest tightness COMPARISON:[ None] FINDINGS: Frontal and lateral views of the chest were obtained. The lungs are clear. The heart size is normal in size. Pulmonary vasculature is unremarkable. Osseous structures are intact. IMPRESSION: No acute lung findings.] [ ] Reviewed, dictated and finalized at location S. ESTATE LAWYER
--- NOTE | 2025-05-27 17:14 | ED_ITS ---
HPI - URI/Sore Throat General Chief Complaint: Upper Respiratory Infection Stated Complaint: CHEST PAIN/LUNGS BURNING Source: patient and RN notes reviewed Mode of arrival: ambulatory Limitations: no limitations History of Present Illness HPI Narrative: Patient is a 29-year-old female who presents to the [facility] with complaints of burning lungs. She states that she started having chest tightness and feeling like her lungs were burning last night. She endorses a frequent nonproductive cough. Denies nasal congestion, sore throat, headache. Denies recent fevers. Denies palpitation or shortness of breath. Related Data Home Medications ?Medication ?Instructions ?Recorded ?Confirmed ?Last Taken ?Type bupropion HCl 150 mg 24 hr tablet, mg PO 05/27/25 Unk nown History extended release buspirone 5 mg tablet mg 05/27/25 Unknown History Allergies Allergy/AdvReac Type Severity Reaction Status Date / Time diphenhydramine AdvReac Intermediate Other Verified 05/27/25 17:25 Review of Systems Review of Systems: CONSTITUTIONAL: Denies fever, chills, or sweats. EYES: Denies visual changes, redness, or discharge. ENT: Denies otalgia and sore throat CARDIOVASCULAR: Reports chest pain. RESPIRATORY: Reports cough but denies dyspnea. GASTROINTESTINAL: Denies abdominal pain, nausea, vomiting, or diarrhea. GENITOURINARY: Denies dysuria or hematuria. SKIN: Denies rash or itching. MUSCULOSKELETAL: Denies back pain, joint pain, or myalgia. NEUROLOGIC: Denies headache, numbness, or weakness. Pertinent positives per HPI. [facility] Past Medical History Medical History Anxiety Anemia 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 Encounter for screening examination for sexually transmitted disease Encounter for biopsy 2011 soft tissue of back--benign Encounter for IUD removal (04/07/21) Encounter for IUD insertion (07/15/20) Seizure hypertension Manic depression Surgical History Surgical History No history of previous surgery Family History Family History Mother Malignant tumor of cervix Other Malignant tumor of cervix maternal aunt Social History Social History Smoking status: Former smoker Tobacco type: e-cigarettes/vaping Additional smoking assessment comments: Quit 2 years ago. 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 There is no relevant family history pertinent to the patient complaint. Exam Narrative: GENERAL: This is a well-nourished, well-developed patient, in no apparent distress. HEAD: normocephalic, atraumatic. EYES: PERRL. Sclera clear/white. Vision is grossly intact. EARS: External ears normal, auditory canals clear and without drainage, TMs normal without perforation. Hearing grossly intact. NOSE: External nose normal with no obvious nasal discharge, nares without redness, no rhinorrhea. THROAT: Mucous membranes moist, posterior pharynx clear. NECK: Neck supple, non-tender without lymphadenopathy, masses or thyromegaly. CARDIOVASCULAR: Regular rate and rhythm without murmurs, gallops, or rubs. RESPIRATORY: Clear to auscultation. Breath sounds equal bilaterally. No wheezes, rales, or rhonchi. GASTROINTESTINAL: Abdomen soft, non-tender, nondistended. Bowel sounds are active. No hepato-splenomegaly, or palpable masses. No guarding. SKIN: warm, intact with no suspicious lesions or rash, good texture and turgor. NEURO: awake, alert, and oriented to person, place and time. There were no obvious focal neurologic abnormalities. EXTREMITIES: No clubbing, cyanosis, or edema. No joint tenderness, effusion, or edema noted. BACK: Nontender without deformity or crepitance. No flank tenderness. Course Course Level of Care: Express Care Visit Vital Signs Vital signs: Vital Signs Temperature 97.8 F 05/27/25 17:27 Pulse Rate 80 05/27/25 17:27 Respiratory Rate 16 05/27/25 17:27 Blood Pressure 113/65 05/27/25 17:27 Pulse Oximetry 100 05/27/25 17:27 Temperature 97.8 F 05/27/25 17:27 Pulse Rate 80 05/27/25 17:27 Respiratory Rate 16 05/27/25 17:27 Blood Pressure 113/65 05/27/25 17:27 Pulse Oximetry 100 05/27/25 17:27 Reviewed MDM - URI/Sore Throat MDM Narrative Medical decision making narrative: Take steroids as directed. May use the inhaler every 4-6 hours as needed for coughing. Increase fluids at home. Avoid any and all smoke. May use a humidifier in the bedroom. Increase your Vitamin C. Follow-up with personal physician in 2-5 days. Differential Diagnosis Differential diagnosis: Likely upper respiratory infection, viral infection and bronchitis Imaging Data Attestation: I personally reviewed and interpreted this imaging study as follows: Radiologist's impression: Express [facility] [address] [place] [address] XRay Report Signed Patient: Cale Dominique : 1995 MR#: [id number] Age: 29 Acct:[id number] Loc: [facility] ADM Date: 05/27/[address]: Ordering Physician: Abby Walter APRN Date of Service: 05/27/25 Procedure(s): XR chest 2V Accession Number(s): [id number] cc: Abby Walter APRN; Kleber, Theo BETTENCOURT~ XR chest 2V HOSTORY: chest tightness COMPARISON:[ None] FINDINGS: Frontal and lateral views of the chest were obtained. The lungs are clear. The heart size is normal in size. Pulmonary vasculature is unremarkable. Osseous structures are intact. IMPRESSION: No acute lung findings.] [ ] Reviewed, dictated and finalized at location S. ETENCY EVALUATED NURSE AIDE Please be advised this is a medical document. It is intended for rwmw-zu-jrga communication. It is written in medical language and may contain unfamiliar abbr eviations or verbiage. Medical documents are intended to carry relevant information, facts as evident, and the clinical opinion of the practitioner at the time of the encounter. This report may have been done utilizing a voice recognition system. Attempts have been made to correct errors. However, there may be uncorrected grammatical, spelling, and recognition errors present. The file time of this note does not necessarily represent the time of service. Dictated By: Rudy Gottlieb MD 05/27/251755 Signed By: <Electronically signed by Rudy Gottlieb MD in OV> 05/27/251757 Critical Care Time Critical Care Time Critical Care Time: No Discharge Plan Discharge Clinical Impression: Acute viral bronchitis Patient Disposition: Home Condition: Stable Instructions: Acute Bronchitis (ED) Additional Instructions: Take steroids as directed. May use the inhaler every 4-6 hours as needed for coughing. Increase fluids at home. Avoid any and all smoke. May use a humidifier in the bedroom. Increase your Vitamin C. Follow-up with personal physician in 2-5 days. Patient Language: [place] Prescriptions: New prednisone 50 mg tablet 50 mg PO DAILY 5 Days Qty: 5 0RF albuterol sulfate [Ventolin HFA] 90 mcg/actuation HFA aerosol inhaler 1 inh inhalation QID PRN (Reason: shortness of breath or wheezing) Qty: 6.7 0RF No Action bupropion HCl 150 mg tablet extended release 24 hr PO buspirone 5 mg tablet hydrocodone-acetaminophen 5-325 mg tablet 1 tablet PO Q4H PRN (Reason: pain) Qty: 20 0RF Follow-up/Referrals: Kleber,GODFREY Wise [Primary Care Provider] Stand Alone Forms: Work/School Release IP Time of Disposition: 18:07
[2025-05-27 17:27] VITALS: BP 113/65; PULSE 80; RESP 16; TEMP 36.6; O2SAT 100
== END 2025-05-27 18:14 | disposition home or self-care (01) ==
PROVIDERS: Emergency Provider Nurse Practitioner; PCP Physician Assistant
DX: J20.8 Acute bronchitis due to other specified organisms (principal); Z87.891 Personal history of nicotine dependence; F41.9 Anxiety disorder, unspecified; F33.9 Major depressive disorder, recurrent, unspecified
CPT/HCPCS: 71046; 99213; G0463